=== PATIENT | male | born 1970 | race Caucasian/White ===

== ENCOUNTER → 2020-02-24 | Outpatient (CLI) | payer OTHER ==
--- NOTE | 2020-02-24 16:15 | Diagnostic Imaging Report ---
Indication: Indication: Arm pain after crush injury. COMPARISON: None available. TECHNIQUE: 2 views of the right forearm are obtained. FINDINGS: A fiberglass splint is in place. There is no traumatic malalignment in the wrist or elbow. No appreciable fracture in the radius or ulna. IMPRESSION: No fracture within the right forearm. Dictated by: Dictated on workstation # [id number]
== END ==
LOC: RAD 15:25
PROVIDERS: ATTEND Nurse Practitioner Family
DX: M79.631 Pain in right forearm (principal)
CPT/HCPCS: 73090

== ENCOUNTER 2020-06-02 13:56 | Emergency (ER) | payer SELFPAY ==
[~2020-06-02] VITALS: Ht 172 cm; Wt 96.0 kg
--- NOTE | 2020-06-02 14:12 | ED General ---
General Stated Complaint: DIZZY / FALL Source of Information: Patient Exam Limitations: No Limitations History of Present Illness Date Seen by Provider: Jun 02, 2020 Time Seen by Provider: 14:08 Initial Comments Sent to ER by private vehicle from [facility] where he presented with recurrent falls. He states that he is fallen twice today because he becomes very lightheaded upon standing. He is fallen a few times over the course of the past 3 days. Denies palpitations. Each time that he has fallen has been after standing. He states that his blood work is abnormal and he has been referred to the hematology department for further evaluation. He states they want to get a CAT scan of his abdomen to look at his spleen. He denies any abdominal pain or diarrhea. Currently he is without dizziness. He denies alcohol use. He does smoke 1 pack of cigarettes per day. He does also report a left-sided headache and blurred vision. states he has been repeating himself. Typically he does not state that he loves her but today he told her that he labs are 4 times in the course of 20 minutes. Timing/Duration: 2-3 Days Severity: Moderate Associated Systoms: Headaches Allergies and Home Medications Allergies Coded Allergies: No Allergy Information Available (Unverified , 06/02/20) Patient Home Medication List Home Medication List Reviewed: Yes Review of Systems Review of Systems Constitutional: see HPI; No chills, No fever, No malaise, No weakness EENTM: see HPI Respiratory: no symptoms reported; No cough, No short of breath Cardiovascular: see HPI; No chest pain, No edema, No palpitations, No syncope, No vascular heart diseas, No other Genitourinary: no symptoms reported Musculoskeletal: no symptoms reported Skin: no symptoms reported Psychiatric/Neurological: No Symptoms Reported, Headache Hematologic/Lymphatic: No Symptoms Reported Immunological/Allergic: no symptoms reported Physical Exam Vital Signs Vital Signs - First Documented 06/02/20 14:00 Temp 35.2 Pulse 85 Resp 20 B/P (MAP) 146/87 (106) Pulse Ox 96 Capillary Refill : Height, Weight, BMI Height: '" Weight: lbs. oz. kg; BMI Method: General Appearance: No Apparent Distress, WD/WN, Other (Alert and oriented very pleasant no distress. GCS 15. Recalls all events. There is no orthostatic hypotension. His blood pressure rises appropriately with change in position to standing though this does cause a recurrence of his dizziness.) Eyes: Bilateral Eye Normal Inspection, Bilateral Eye PERRL, Bilateral Eye EOMI HEENT: PERRL/EOMI, TMs Normal, Normal ENT Inspection Neck: Full Range of Motion, Normal Inspection Respiratory: No Accessory Muscle Use, No Respiratory Distress Cardiovascular: Regular Rate, Rhythm, Normal Peripheral Pulses Gastrointestinal: Normal Bowel Sounds, Non Tender, Soft Extremity: Normal Capillary Refill, Normal Inspection Neurologic/Psychiatric: Alert, Oriented x3 Skin: Normal Color, Warm/Dry Progress/Results/Core Measures Suspected Sepsis SIRS Temperature: Pulse: Respiratory Rate: Laboratory Tests 06/02/20 14:05: White Blood Count 8.7 Blood Pressure / Mean: Laboratory Tests 06/02/20 14:05: Creatinine 0.80, INR Comment 1.1, Platelet Count 112L, Total Bilirubin 2.2H Results/Orders Lab Results Laboratory Tests Test 06/02/20 14:05 06/02/20 15:00 Range/Units White Blood Count 8.7 4.3-11.0 10^3/uL Red Blood Count 3.97 L 4.30-5.52 10^6/uL Hemoglobin 15.1 13.3-17.7 g/dL Hematocrit 42 40-54 % Mean Corpuscular Volume 106 H 80-99 fL Mean Corpuscular Hemoglobin 38 H 25-34 pg Mean Corpuscular Hemoglobin Concent 36 32-36 g/dL Red Cell Distribution Width 15.2 H 10.0-14.5 % Platelet Count 112 L 130-400 10^3/uL Mean Platelet Volume 11.3 9.0-12.2 fL Immature Granulocyte % (Auto) 1 % Neutrophils (%) (Auto) 64 42-75 % Lymphocytes (%) (Auto) 28 12-44 % Monocytes (%) (Auto) 5 0-12 % Eosinophils (%) (Auto) 2 0-10 % Basophils (%) (Auto) 1 0-10 % Neutrophils # (Auto) 5.5 1.8-7.8 10^3/uL Lymphocytes # (Auto) 2.4 1.0-4.0 10^3/uL Monocytes # (Auto) 0.5 0.0-1.0 10^3/uL Eosinophils # (Auto) 0.1 0.0-0.3 10^3/uL Basophils # (Auto) 0.1 0.0-0.1 10^3/uL Immature Granulocyte # (Auto) 0.1 0.0-0.1 10^3/uL Erythrocyte Sedimentation Rate 2 0-15 MM/HR Prothrombin Time 14.7 12.2-14.7 SEC INR Comment 1.1 0.8-1.4 Fibrinogen 188 L 221-496 MG/DL D-Dimer 0.71 H 0.00-0.49 UG/ML Sodium Level 136 135-145 MMOL/L Potassium Level 4.6 3.6-5.0 MMOL/L Chloride Level 106 98-107 MMOL/L Carbon Dioxide Level 19 L 21-32 MMOL/L Anion Gap 11 5-14 MMOL/L Blood Urea Nitrogen 7 7-18 MG/DL Creatinine 0.80 0.60-1.30 MG/DL Estimat Glomerular Filtration Rate > 60 BUN/Creatinine Ratio 9 Glucose Level 118 H 70-105 MG/DL Calcium Level 9.0 8.5-10.1 MG/DL Corrected Calcium 8.7 8.5-10.1 MG/DL Total Bilirubin 2.2 H 0.1-1.0 MG/DL Aspartate Amino Transf (AST/SGOT) 48 H 5-34 U/L Alanine Aminotransferase (ALT/SGPT) 53 0-55 U/L Alkaline Phosphatase 121 40-136 U/L C-Reactive Protein High Sensitivity 0.16 0.00-0.50 MG/DL Total Protein 8.1 6.4-8.2 GM/DL Albumin 4.4 3.2-4.5 GM/DL Urine Color YELLOW Urine Clarity CLEAR Urine pH 8.0 5-9 Urine Specific [place] 1.010 L 1.016-1.022 Urine Protein NEGATIVE NEGATIVE Urine Glucose (UA) NEGATIVE NEGATIVE Urine Ketones NEGATIVE NEGATIVE Urine Nitrite NEGATIVE NEGATIVE Urine Bilirubin NEGATIVE NEGATIVE Urine Urobilinogen 0.2 < = 1.0 MG/DL Urine Leukocyte Esterase NEGATIVE NEGATIVE Urine RBC (Auto) NEGATIVE NEGATIVE Urine RBC NONE /HPF Urine WBC NONE /HPF Urine Squamous Epithelial Cells NONE /HPF Urine Crystals NONE /LPF Urine Bacteria NEGATIVE /HPF Urine Casts NONE /LPF Urine Mucus NEGATIVE /LPF Urine Culture Indicated NO My Orders Orders - VIDHYA ROME APRN Cbc With Automated Diff (06/02/20 14:06) Comprehensive Metabolic Panel (06/02/20 14:06) Ua Culture If Indicated (06/02/20 14:06) Chest 1 View, Ap/Pa Only (06/02/20 14:06) Ct Head Wo (06/02/20 14:06) Erythrocyte Sedimentation Rate (06/02/20 14:21) Hs C Reactive Protein (06/02/20 14:21) Ct Abdomen/Pelvis W (06/02/20 14:21) Ferritin (06/02/20 14:21) Fibrin Degradation Products (06/02/20 14:21) Iohexol Injection (Omnipaque 350 Mg/Ml 1 (06/02/20 14:30) Received Contrast (Hold Metformin- Contr (06/02/20 14:30) Sodium Chloride Flush (Catheter Flush Sy (06/02/20 14:30) Ns (Ivpb) (Sodium Chloride 0.9% Ivpb Bag (06/02/20 14:30) Fibrinogen (06/02/20 14:05) Protime With Inr (06/02/20 14:05) Meclizine Tablet (Antivert Tablet) (06/02/20 16:30) Medications Given in ED Current Medications Medications Dose Ordered Sig/Radha Route Start Time Stop Time Status Last Admin Dose Admin Iohexol 100 ml ONCE ONCE IV 06/02/20 14:30 06/02/20 14:31 DC 06/02/20 14:37 100 ML Sodium Chloride 10 ml NEEDED PRN IV 06/02/20 14:30 06/02/20 14:37 10 ML Sodium Chloride 100 ml ONCE ONCE IV 06/02/20 14:30 06/02/20 14:31 DC 06/02/20 14:37 80 ML Vital Signs/I&O 06/02/20 14:00 Temp 35.2 Pulse 85 Resp 20 B/P (MAP) 146/87 (106) Pulse Ox 96 Capillary Refill : Diagnostic Imaging Diagonstic Imaging: Xray, CT Comments NAME: RENETTA ZURITA CECILIA REC#: [id number] PT STATUS: REG ER : 1970 PHYSICIAN: VIDHYA ROME APRN ADMIT DATE: 06/02/20/ER Draft Date of Exam:06/02/20 CHEST 1 VIEW, AP/PA ONLY Clinical indication: Patient states multiple falls over last few days. Exam: Portable chest x-ray upright view. Comparisons: None. Findings: Lungs/pleura: Suspected mild bibasilar atelectasis. Otherwise, lungs are clear. There is no pneumothorax. There is no pleural effusion. Mediastinum: Unremarkable. Pulmonary vasculature: Unremarkable. Heart: Unremarkable. Bones/extrathoracic soft tissue: Unremarkable. Impression: Suspected mild bibasilar atelectasis. Otherwise, there is no radiographic evidence of acute cardiopulmonary process. Dictated on workstation # [id number] Dict: 06/02/20 1438 Trans: 06/02/20 1444 [facility] [id number] Interpreted by: PAULO PINEDA MD Electronically signed by: NAME: RENETTA ZURITA [facility] REC#: [id number] PT STATUS: REG ER : 1970 PHYSICIAN: VIDHYA ROME APRN ADMIT DATE: 06/02/20/ER Signed Date of Exam:06/02/20 CT HEAD WO Clinical indication: Patient with syncope, 2 falls today. Patient has dizziness x2-3 days. Exam: Axial CT scan of the brain without IV contrast with coronal and sagittal reformatted images. Auto Exposure Controls were utilized during the CT exam to meet ALARA standards for radiation dose reduction. Comparison: None. Findings: There is no evidence of acute cerebral infarct, intracranial hemorrhage, or gross mass effect. There is brain parenchymal volume loss which is advanced for patient's age with increased extra-axial CSF space seen near the vertex. There is normal duckworth-white matter distinction. There is no significant midline shift or herniation. The pituitary gland, sella, and suprasellar regions are unremarkable as visualized. There is no evidence of hydrocephalus. The basal cisterns are unremarkable. The skull, extracranial soft tissue, and orbits are unremarkable. There is a moderate-sized mucus retention cyst in the left maxillary sinus. Temporal bones show no significant abnormality. Impression: 1: There is no evidence of acute intracranial process. 2: There is nonspecific diffuse brain parenchymal volume loss which is advanced for patient's age with increased extra-axial CSF space. Otherwise, the brain parenchyma is unremarkable. 3: Moderate sized mucous retention cyst in left maxillary sinus. Dictated by: Dictated on workstation # [id number] Dict: 06/02/20 1441 Trans: 06/02/20 1508 [facility] [id number] Interpreted by: PAULO PINEDA MD Electronically signed by: PAULO PINEDA MD 06/02/20 1508 NAME: RENETTA ZURITA REC#: [id number] PT STATUS: REG ER : 1970 PHYSICIAN: VIDHYA ROME APRN ADMIT DATE: 06/02/20/ER Draft Date of Exam:06/02/20 CT ABDOMEN/PELVIS W CLINICAL INDICATION: Patient with thrombocytopenia. Patient complains of abdominal pain and multiple recent falls. EXAM: Axial CT scan of the abdomen and pelvis performed with 100 mL of Omnipaque 300 IV contrast. Sagittal and coronal reformatted images were created. Auto Exposure Controls were utilized during the CT exam to meet ALARA standards for radiation dose reduction. COMPARISON: None. FINDINGS: Visualized lung bases are clear. There are degenerative spurs involving the visualized lower thoracic spine and lumbar spine. There is lower lumbar spine facet arthropathy. There is hepatosplenomegaly. The liver measures 21 cm in craniocaudal dimension. The spleen measures 21 cm in craniocaudal dimension. The liver and spleen are otherwise unremarkable with no parenchymal lesion seen. The pancreas and adrenal glands are unremarkable. Both kidneys show no mass or hydronephrosis. There are multiple gallstones seen throughout the gallbladder. The gallbladder is mild to moderately fluid distended. There is a 2.2 cm eggshell calcified area which appears to be just posterior to the cystic duct and just lateral to the 2nd portion of duodenum. There appears to be some mass effect on the duodenum. It is difficult to determine if this calcification is within the cystic duct or outside. There is no evidence of obstruction seen of the biliary tree or small bowel. There is no intestinal obstruction seen. The remainder of the stomach, small bowel and colon are unremarkable. There are a few diverticula involving the sigmoid colon and descending colon. Colon is otherwise unremarkable. The appendix is unremarkable. There is no intra-abdominal free air or free fluid. The bladder is fluid distended but otherwise unremarkable. There is no intra-abdominal or pelvic lymphadenopathy. There is a small fat-containing umbilical hernia noted. Otherwise, the extra-abdominal and extra-pelvis soft tissue structures show no significant abnormality. IMPRESSION: 1: There is a 2.2 cm eggshell calcification which appears to be just posterior to the cystic duct and superior and lateral to the 1st portion of duodenum. It is difficult to determine if this calcification is within the cystic duct or outside. There is no definite evidence of obstruction seen. MRCP may help better evaluate to determine the location and relation of this calcification in the cystic duct. Comparison to prior CT imaging of the abdomen and pelvis would also help evaluate for chronicity. 2: There is cholelithiasis with no CT evidence of cholecystitis. 3: There is hepatosplenomegaly. Clinical correlation for etiology is suggested. Dictated on workstation # [id number] Dict: 06/02/20 1444 Trans: 06/02/20 1514 [facility] [id number] Interpreted by: PAULO PINEDA MD Electronically signed by: Departure Communication (Admissions) He did have some outpatient labs on 05/23/2020 and a peripheral smear showing negative hepatitis and HIV panel. His hemoglobin was 15.8 hematocrit 44, plat elets low at 110. His total bili was 2.3 and direct bili was 0.8. He had a low haptoglobin at less than 8. His peripheral smear showed macrocytic anemia with low-grade hemolysis. Thrombocytopenia with an elevated IPF consistent with low or reduced platelet survival. He is scheduled to see Dr. Cobb from hematology for further evaluation. 1621-did discuss with Dr. Cobb, no additional recommendations at this time he follows up with the patient this week or next in clinic. Impression Primary Impression: Thrombocytopenia Additional Impressions: Splenomegaly Orthostatic dizziness Disposition: 01 HOME, SELF-CARE Condition: Stable Departure-Patient Inst. Decision time for Depature: 15:35 Referrals: RYLAN GLASGOW MD (PCP/Family) Primary Care Physician Patient Instructions: Dizziness, Adult ED Add. Discharge Instructions: It is very important that you call Dr. GLASGOW tomorrow morning for further evaluation and guidance on the plan of care. Your spleen was very enlarged on CT scan. No roughhousing or any physical activity that could result in you being struck in your abdomen. No bicycle riding or dirt bikes. Be very careful not to be hit in your abdomen with anything. Scripts Meclizine HCl (Meclizine HCl) 25 Mg Tablet 25 MG PO TID PRN for DIZZINESS, #10 TAB Prov: VIDHYA ROME APRN 06/02/20 Copy Copies To 1: RYLAN GLASGOW MD; GRICELDA DUEÑAS PETER J APRN Jun 02, 2020 14:12
[2020-06-02 14:20] LABS: BASOPHILS # (AUTO) 0.1 10^3/uL (0.0-0.1); BASOPHILS % (AUTO) 1 % (0-10); MEAN CORPUSCULAR HGB CONC 36 g/dL (32-36); MEAN PLATELET VOLUME 11.3 fL (9.0-12.2); MONOCYTES % (AUTO) 5 % (0-12)
[2020-06-02 14:22] LABS: EOSINOPHILS # (AUTO) 0.1 10^3/uL (0.0-0.3); EOSINOPHILS % (AUTO) 2 % (0-10); HEMATOCRIT 42 % (40-54); HEMOGLOBIN 15.1 g/dL (13.3-17.7); LYMPHOCYTES # (AUTO) 2.4 10^3/uL (1.0-4.0); LYMPHOCYTES % (AUTO) 28 % (12-44); MEAN CORPUSCULAR HEMOGLOBIN 38 pg (25-34); MEAN CORPUSCULAR VOLUME 106 fL (80-99); MONOCYTES # (AUTO) 0.5 10^3/uL (0.0-1.0); NEUTROPHILS # (AUTO) 5.5 10^3/uL (1.8-7.8); NEUTROPHILS % (AUTO) 64 % (42-75); PLATELET COUNT 112 10^3/uL (130-400); WHITE BLOOD COUNT 8.7 10^3/uL (4.3-11.0)
[2020-06-02] MEDS ORDERED: NS 100 ML (IVPB) BAG IV ONE (14:30)
[2020-06-02] MEDS ORDERED: CATHETER FLUSH 10 ML SYR IV PRN (14:30)
[2020-06-02] MEDS ORDERED: IOHEXOL 350 MG/ML 100 ML (OMNIPAQUE 350) VIAL IV ONE (14:30)
[2020-06-02] MEDS ORDERED: HOLD METFORMIN - RECEIVED CONTRAST 20 ML VIAL IV SCH (14:30)
[2020-06-02 14:35] LABS: ALBUMIN 4.4 GM/DL (3.2-4.5); CHLORIDE 106 MMOL/L (98-107); POTASSIUM 4.6 MMOL/L (3.6-5.0); SODIUM 136 MMOL/L (135-145)
[2020-06-02 14:38] LABS: GLUCOSE 118 MG/DL (70-105); TOTAL PROTEIN 8.1 GM/DL (6.4-8.2)
[2020-06-02 14:39] LABS: BILIRUBIN,TOTAL 2.2 MG/DL (0.1-1.0); CARBON DIOXIDE 19 MMOL/L (21-32)
[2020-06-02 14:41] LABS: ALKALINE PHOSPHATASE 121 U/L (40-136); GFR ESTIMATED > 60
[2020-06-02 14:42] LABS: BUN/CREATININE RATIO 9
[2020-06-02 14:44] LABS: ALANINE AMINOTRANSFERASE 53 U/L (0-55)
--- NOTE | 2020-06-02 14:44 | Diagnostic Imaging Report ---
Clinical indication: Patient states multiple falls over last few days. Exam: Portable chest x-ray upright view. Comparisons: None. Findings: Lungs/pleura: Suspected mild bibasilar atelectasis. Otherwise, lungs are clear. There is no pneumothorax. There is no pleural effusion. Mediastinum: Unremarkable. Pulmonary vasculature: Unremarkable. Heart: Unremarkable. Bones/extrathoracic soft tissue: Unremarkable. Impression: Suspected mild bibasilar atelectasis. Otherwise, there is no radiographic evidence of acute cardiopulmonary process. Dictated by: Dictated on workstation # [id number]
--- NOTE | 2020-06-02 14:47 | Diagnostic Imaging Report ---
Clinical indication: Patient with syncope, 2 falls today. Patient has dizziness x2-3 days. Exam: Axial CT scan of the brain without IV contrast with coronal and sagittal reformatted images. Auto Exposure Controls were utilized during the CT exam to meet ALARA standards for radiation dose reduction. Comparison: None. Findings: There is no evidence of acute cerebral infarct, intracranial hemorrhage, or gross mass effect. There is brain parenchymal volume loss which is advanced for patient's age with increased extra-axial CSF space seen near the vertex. There is normal duckworth-white matter distinction. There is no significant midline shift or herniation. The pituitary gland, sella, and suprasellar regions are unremarkable as visualized. There is no evidence of hydrocephalus. The basal cisterns are unremarkable. The skull, extracranial soft tissue, and orbits are unremarkable. There is a moderate-sized mucus retention cyst in the left maxillary sinus. Temporal bones show no significant abnormality. Impression: 1: There is no evidence of acute intracranial process. 2: There is nonspecific diffuse brain parenchymal volume loss which is advanced for patient's age with increased extra-axial CSF space. Otherwise, the brain parenchyma is unremarkable. 3: Moderate sized mucous retention cyst in left maxillary sinus. Dictated by: Dictated on workstation # [id number]
[2020-06-02 14:58] LABS: FIBRIN DEGRADATION PRODUCTS 0.71 UG/ML (0.00-0.49)
[2020-06-02 15:05] LABS: INR 1.1 (0.8-1.4); PROTHROMBIN TIME PATIENT 14.7 SEC (12.2-14.7)
--- NOTE | 2020-06-02 15:14 | Diagnostic Imaging Report ---
CLINICAL INDICATION: Patient with thrombocytopenia. Patient complains of abdominal pain and multiple recent falls. EXAM: Axial CT scan of the abdomen and pelvis performed with 100 mL of Omnipaque 300 IV contrast. Sagittal and coronal reformatted images were created. Auto Exposure Controls were utilized during the CT exam to meet ALARA standards for radiation dose reduction. COMPARISON: None. FINDINGS: Visualized lung bases are clear. There are degenerative spurs involving the visualized lower thoracic spine and lumbar spine. There is lower lumbar spine facet arthropathy. There is hepatosplenomegaly. The liver measures 21 cm in craniocaudal dimension. The spleen measures 21 cm in craniocaudal dimension. The liver and spleen are otherwise unremarkable with no parenchymal lesion seen. The pancreas and adrenal glands are unremarkable. Both kidneys show no mass or hydronephrosis. There are multiple gallstones seen throughout the gallbladder. The gallbladder is mild to moderately fluid distended. There is a 2.2 cm eggshell calcified area which appears to be just posterior to the cystic duct and just lateral to the 2nd portion of duodenum. There appears to be some mass effect on the duodenum. It is difficult to determine if this calcification is within the cystic duct or outside. There is no evidence of obstruction seen of the biliary tree or small bowel. There is no intestinal obstruction seen. The remainder of the stomach, small bowel and colon are unremarkable. There are a few diverticula involving the sigmoid colon and descending colon. Colon is otherwise unremarkable. The appendix is unremarkable. There is no intra-abdominal free air or free fluid. The bladder is fluid distended but otherwise unremarkable. There is no intra-abdominal or pelvic lymphadenopathy. There is a small fat-containing umbilical hernia noted. Otherwise, the extra-abdominal and extra-pelvis soft tissue structures show no significant abnormality. IMPRESSION: 1: There is a 2.2 cm eggshell calcification which appears to be just posterior to the cystic duct and superior and lateral to the 1st portion of duodenum. It is difficult to determine if this calcification is within the cystic duct or outside. There is no definite evidence of obstruction seen. MRCP may help better evaluate to determine the location and relation of this calcification in the cystic duct. Comparison to prior CT imaging of the abdomen and pelvis would also help evaluate for chronicity. 2: There is cholelithiasis with no CT evidence of cholecystitis. 3: There is hepatosplenomegaly. Clinical correlation for etiology is suggested. Dictated by: Dictated on workstation # [id number]
[2020-06-02 15:29] LABS: BILIRUBIN,URINE NEGATIVE (NEGATIVE); CLARITY,URINE CLEAR; COLOR,URINE YELLOW; GLUCOSE, URINE (UA) NEGATIVE (NEGATIVE); KETONES,URINE NEGATIVE (NEGATIVE); LEUKOCYTE ESTERASE ,URINE NEGATIVE (NEGATIVE); NITRITE,URINE NEGATIVE (NEGATIVE); PROTEIN,URINE NEGATIVE (NEGATIVE)
[2020-06-02 15:56] LABS: BACTERIA,URINE NEGATIVE /HPF
[2020-06-02] MEDS ORDERED: MECL-149 PO (16:28)
[2020-06-02] MEDS ORDERED: MECLIZINE 25 MG (ANTIVERT) TAB PO ONE (16:30)
[2020-06-02 16:38] VITALS: BP 136/75
== END 2020-06-02 16:39 | disposition home or self-care (01) ==
LOC: EDUNIT# 13:56 → ER 13:59
DX: D69.6 Thrombocytopenia, unspecified (principal); R16.1 Splenomegaly, not elsewhere classified; R42 Dizziness and giddiness; I10 Essential (primary) hypertension
CPT/HCPCS: 36415; 70450; 71045; 74177; 80053; 81000; 82728; 85025; 85379; 85384; 85610; 85652; 86141

== ENCOUNTER 2020-07-10 09:56 | Outpatient (RCR) | payer SELFPAY ==
[2020-05-23 14:14] LABS: ABSOLUTE RETIC # 355 10e9/uL (24-90); BASOPHILS # (AUTO) 0.1 10^3/uL (0.0-0.1); BASOPHILS % (AUTO) 1 % (0-10); EOSINOPHILS # (AUTO) 0.2 10^3/uL (0.0-0.3); EOSINOPHILS % (AUTO) 2 % (0-10); HEMATOCRIT 44 % (40-54); HEMOGLOBIN 15.8 g/dL (13.3-17.7); LYMPHOCYTES # (AUTO) 2.6 10^3/uL (1.0-4.0); LYMPHOCYTES % (AUTO) 25 % (12-44); MEAN CORPUSCULAR HEMOGLOBIN 38 pg (25-34); MEAN CORPUSCULAR HGB CONC 36 g/dL (32-36); MEAN CORPUSCULAR VOLUME 106 fL (80-99); MEAN PLATELET VOLUME 11.7 fL (9.0-12.2); MONOCYTES # (AUTO) 0.5 10^3/uL (0.0-1.0); MONOCYTES % (AUTO) 5 % (0-12); NEUTROPHILS # (AUTO) 6.9 10^3/uL (1.8-7.8); NEUTROPHILS % (AUTO) 67 % (42-75); PLATELET COUNT 110 10^3/uL (130-400); RETICULOCYTE % 8.49 % (0.50-2.40); WHITE BLOOD COUNT 10.3 10^3/uL (4.3-11.0)
[2020-05-23 14:37] LABS: ALANINE AMINOTRANSFERASE 43 U/L (0-55); ALBUMIN 4.6 GM/DL (3.2-4.5); ALKALINE PHOSPHATASE 109 U/L (40-136); BILIRUBIN,TOTAL 2.3 MG/DL (0.1-1.0); BUN/CREATININE RATIO 12; CALCIUM 9.5 MG/DL (8.5-10.1); CARBON DIOXIDE 22 MMOL/L (21-32); CHLORIDE 105 MMOL/L (98-107); CREATININE SERUM 0.76 MG/DL (0.60-1.30); GFR ESTIMATED > 60; GLUCOSE 111 MG/DL (70-105); POTASSIUM 4.1 MMOL/L (3.6-5.0); SODIUM 137 MMOL/L (135-145); TOTAL PROTEIN 7.9 GM/DL (6.4-8.2)
[2020-05-23 16:51] LABS: EOSINOPHILS % (MANUAL) 3 %; LYMPHOCYTES % (MANUAL) 31 %; MONOCYTES % (MANUAL) 4 %; NEUTROPHILS % (MANUAL) 62 %; POLYCHROMASIA SLIGHT
[2020-05-23 22:36] LABS: HEPATITIS C ANTIBODY C Non-Reactive (Non-Reactive)
[~2020-07-10 09:56] MED LIST: MECL-149 PO
[2020-07-10 10:07] LABS: MONOCYTES % (AUTO) 6 % (0-12); PLATELET COUNT 133 10^3/uL (130-400)
[2020-07-10 10:10] LABS: ABSOLUTE RETIC # 253 10e9/uL (24-90); BASOPHILS # (AUTO) 0.1 10^3/uL (0.0-0.1); BASOPHILS % (AUTO) 1 % (0-10); EOSINOPHILS # (AUTO) 0.2 10^3/uL (0.0-0.3); EOSINOPHILS % (AUTO) 2 % (0-10); HEMATOCRIT 40 % (40-54); HEMOGLOBIN 13.8 g/dL (13.3-17.7); LYMPHOCYTES # (AUTO) 2.1 10^3/uL (1.0-4.0); LYMPHOCYTES % (AUTO) 26 % (12-44); MEAN CORPUSCULAR HEMOGLOBIN 38 pg (25-34); MEAN CORPUSCULAR HGB CONC 35 g/dL (32-36); MEAN CORPUSCULAR VOLUME 108 fL (80-99); MEAN PLATELET VOLUME 11.4 fL (9.0-12.2); MONOCYTES # (AUTO) 0.5 10^3/uL (0.0-1.0); NEUTROPHILS # (AUTO) 5.4 10^3/uL (1.8-7.8); NEUTROPHILS % (AUTO) 65 % (42-75); WHITE BLOOD COUNT 8.3 10^3/uL (4.3-11.0)
[2020-07-10 10:26] LABS: ALANINE AMINOTRANSFERASE 37 U/L (0-55); ALKALINE PHOSPHATASE 122 U/L (40-136); BILIRUBIN,TOTAL 1.8 MG/DL (0.1-1.0); BUN/CREATININE RATIO 8; CALCIUM 8.7 MG/DL (8.5-10.1); CARBON DIOXIDE 24 MMOL/L (21-32); CHLORIDE 106 MMOL/L (98-107); CREATININE SERUM 0.75 MG/DL (0.60-1.30); GFR ESTIMATED > 60; GLUCOSE 167 MG/DL (70-105); POTASSIUM 3.9 MMOL/L (3.6-5.0); SODIUM 138 MMOL/L (135-145)
[2020-07-28] MEDS ORDERED: TRAM-42 PO (00:42)
[2020-07-28] MEDS ORDERED: ONDA4TAB11 PO (00:42)
[2020-07-28] MEDS ORDERED: PANT40TA2 PO (00:42)
[2020-08-07] MEDS ORDERED: METF-397 PO (10:07)
[2020-08-07] MEDS ORDERED: SERT100T PO ×2 (10:07)
[2020-08-08] MEDS ORDERED: HYDR-3817 PO (12:32)
[2020-08-19] MEDS ORDERED: HYDR-3817 PO ×2 (09:44)
[2020-08-19] MEDS ORDERED: IBUP-2473 PO ×2 (09:44)
[2020-08-19] MEDS ORDERED: TRAM-42 PO ×2 (16:07)
[2020-08-19] MEDS ORDERED: METR500T PO ×2 (16:07)
[2020-08-19] MEDS ORDERED: CIPR-225 PO ×2 (16:07)
== END 2020-08-21 | disposition home or self-care (01) ==
LOC: ONC 09:56
PROVIDERS: ATTEND Internal Medicine Hematology & Oncology
DX: D69.6 Thrombocytopenia, unspecified (principal)
CPT/HCPCS: 80053; 80074; 82248; 83010; 83615; 85007; 85025; 85027; 85045; 85055; 86703; 86880; G0463; 82728; 99213; 99214

== ENCOUNTER 2020-07-27 22:23 | Emergency (ER) | payer MEDICAID ==
[~2020-07-27] VITALS: Ht 170.2 cm; Wt 95.3 kg
[2020-07-27 22:47] LABS: BILIRUBIN,URINE NEGATIVE (NEGATIVE); CLARITY,URINE CLEAR; COLOR,URINE YELLOW; GLUCOSE, URINE (UA) 3+ (NEGATIVE); KETONES,URINE NEGATIVE (NEGATIVE); LEUKOCYTE ESTERASE ,URINE NEGATIVE (NEGATIVE); NITRITE,URINE NEGATIVE (NEGATIVE); PH,URINE 6.5 (5-9); PROTEIN,URINE NEGATIVE (NEGATIVE)
[2020-07-27 22:53] LABS: BASOPHILS # (AUTO) 0.1 10^3/uL (0.0-0.1); BASOPHILS % (AUTO) 1 % (0-10); EOSINOPHILS # (AUTO) 0.2 10^3/uL (0.0-0.3); EOSINOPHILS % (AUTO) 2 % (0-10); LYMPHOCYTES # (AUTO) 2.8 10^3/uL (1.0-4.0); MEAN CORPUSCULAR VOLUME 106 fL (80-99)
[2020-07-27 22:53] LABS: BACTERIA,URINE NEGATIVE /HPF; SQUAMOUS EPITHELIAL CELL,UR RARE /HPF
[2020-07-27 22:54] LABS: HEMATOCRIT 43 % (40-54); HEMOGLOBIN 15.5 g/dL (13.3-17.7); LYMPHOCYTES % (AUTO) 28 % (12-44); MEAN CORPUSCULAR HEMOGLOBIN 38 pg (25-34); MEAN CORPUSCULAR HGB CONC 36 g/dL (32-36); MEAN PLATELET VOLUME 11.7 fL (9.0-12.2); MONOCYTES # (AUTO) 0.6 10^3/uL (0.0-1.0); MONOCYTES % (AUTO) 6 % (0-12); NEUTROPHILS # (AUTO) 6.2 10^3/uL (1.8-7.8); NEUTROPHILS % (AUTO) 63 % (42-75); PLATELET COUNT 100 10^3/uL (130-400); WHITE BLOOD COUNT 9.8 10^3/uL (4.3-11.0)
[2020-07-27 23:02] LABS: ALBUMIN 4.6 GM/DL (3.2-4.5)
[2020-07-27 23:03] LABS: AMYLASE 55 U/L (25-125); CHLORIDE 102 MMOL/L (98-107); SODIUM 138 MMOL/L (135-145)
[2020-07-27 23:04] LABS: CALCIUM 9.3 MG/DL (8.5-10.1)
[2020-07-27 23:05] LABS: GLUCOSE 327 MG/DL (70-105); TOTAL PROTEIN 7.7 GM/DL (6.4-8.2)
[2020-07-27 23:06] LABS: CARBON DIOXIDE 24 MMOL/L (21-32)
[2020-07-27 23:07] LABS: BILIRUBIN,TOTAL 2.2 MG/DL (0.1-1.0)
[2020-07-27 23:08] LABS: ALKALINE PHOSPHATASE 147 U/L (40-136)
[2020-07-27 23:09] LABS: CREATININE SERUM 0.92 MG/DL (0.60-1.30); GFR ESTIMATED > 60
[2020-07-27 23:10] LABS: BUN/CREATININE RATIO 8
[2020-07-27 23:12] LABS: ALANINE AMINOTRANSFERASE 46 U/L (0-55); LIPASE 34 U/L (8-78)
[2020-07-27] MEDS: NS IV 1000 ML 1,000 ML IV SCH (23:22)
[2020-07-28] MEDS: NS 100 ML (IVPB) BAG IV ONE (00:10)
[2020-07-28] MEDS: CATHETER FLUSH 10 ML SYR IV PRN (00:10)
[2020-07-28] MEDS: IOHEXOL 350 MG/ML 100 ML (OMNIPAQUE 350) VIAL IV ONE (00:10)
[2020-07-28] MEDS ORDERED: HOLD METFORMIN - RECEIVED CONTRAST 20 ML VIAL IV SCH (00:15)
[2020-07-28] MEDS ORDERED: TRAM-42 PO (00:42)
[2020-07-28] MEDS ORDERED: PANT40TA2 PO (00:42)
[2020-07-28] MEDS ORDERED: ONDA4TAB11 PO (00:42)
--- NOTE | 2020-07-28 00:42 | ED Abdominal Pain ---
General Chief Complaint: Abdominal/GI Problems Stated Complaint: R SIDE PAIN/FEVER/DIZZINESS Source of Information: Patient History of Present Illness Date Seen by Provider: July 27, 2020 Time Seen by Provider: 22:37 Initial Comments PT ARRIVES VIA POV FROM HOME C/O RUQ PAIN --BEGAN AROUND 12:30 THIS AFTERNOON WHILE SITTING NO RADIATION OF PAIN NOTHING WORSENS OR IMPROVES PAIN PT STATES PAIN IS SHARP AND DULL, RATES PAIN 8/10 NOW NO NAUSEA/VOMITING/DIARRHEA. HAD A NORMAL BM TODAY NO URINARY SYMPTOMS PT HAS BEEN EATING AND DRINKING USUAL TODAY STATES HE HAD FEVER OF 99.1 TODAY NO HISTORY OF SIMILAR HAS NOT HAD ANY PRIOR ABDOMINAL SURGERIES OR GI PROBLEMS PT RECEIVED BOTH MODERNA COVID-19 VACCINES, WITH LAST ONE DONE ON 06/23/20 NO CHRONIC MEDICAL PROBLEMS, OTHER THAN DEPRESSION ONLY MEDICATION IS ZOLOFT PCP: DR. GLASGOW AT [facility] Allergies and Home Medications Allergies Coded Allergies: No Allergy Information Available (Unverified , 06/02/20) Home Medications Meclizine HCl 25 Mg Tablet, 25 MG PO TID PRN for DIZZINESS Prescribed by: VIDHYA ROME on 06/02/20 1628 Ondansetron 4 Mg Tab.rapdis, 4 MG PO Q4H Prescribed by: SAAD MARRERO on 07/28/20 0042 Pantoprazole Sodium 40 Mg Tablet.dr, 40 MG PO DAILY Prescribed by: SAAD MARRERO on 07/28/20 0042 Tramadol HCl 50 Mg Tablet, 50 MG PO Q4H Prescribed by: SAAD MARRERO on 07/28/20 0042 Patient Home Medication List Home Medication List Reviewed: Yes Review of Systems Review of Systems Constitutional: see HPI, fever EENTM: No Symptoms Reported Respiratory: No Symptoms Reported Cardiovascular: No Symptoms Reported Gastrointestinal: See HPI, Abdominal Pain; Denies Constipated, Denies Diarrhea, Denies Nausea, Denies Poor Appetite, Denies Vomiting Genitourinary: No Symptoms Reported Musculoskeletal: no symptoms reported; No back pain Skin: no symptoms reported Psychiatric/Neurological: No Symptoms Reported Endocrine: No Symptoms Reported Hematologic/Lymphatic: No Symptoms Reported Past Aligicz-Lzpkpz-Eqjakl Hx Past Med/Social Hx: Reviewed and Corrections made Patient Social History Alcohol Use: Occasionally Uses Drug of Choice: DENIES Smoking Status: Current Everyday Smoker (1 PPD) Type Used: Cigarettes Recent Hopitalizations: No Seasonal Allergies Seasonal Allergies: No Past Medical History Surgeries: No Respiratory: No Cardiac: No Neurological: No Genitourinary: No Gastrointestinal: No Musculoskeletal: No Endocrine: No HEENT: No Cancer: No Psychosocial: Yes Depression Integumentary: No Blood Disorders: No Physical Exam Vital Signs Vital Signs - First Documented 07/27/20 22:32 Temp 36.7 Pulse 95 Resp 18 B/P (MAP) 172/92 (118) Pulse Ox 97 O2 Delivery Room Air Capillary Refill : Height/Weight/BMI Height: '" Weight: lbs. oz. kg; 32.00 BMI Method: General Appearance: WD/WN, no apparent distress, obese, other (SMILING, DOES NOT APPEAR TO BE IN ANY DISCOMFORT OR DISTRESS. WALKS UPRIGHT AND MOVES WITHOUT DIFFICULTY. ) HEENT: No scleral icterus (R), No scleral icterus (L) Respiratory: normal breath sounds, no respiratory distress, no accessory muscle use Cardiovascular: regular rate, rhythm, no murmur Gastrointestinal: normal bowel sounds, soft; No guarding, No rebound; tenderness (MODERATE RUQ TENDERNESS, MILD EPIGASTRIC TENDERNESS, MINIMAL LUQ TENDERNESS); No hernia, No mass; other (UNABLE TO DETERMINE IF ORGANOMEGALY IS PRESENT DUE TO BODY HABITUS--ABDOMEN IS LARGE AND ROTUND) Extremities: normal inspection, no pedal edema Back: no CVA tenderness Neurologic/Psychiatric: supervisor functional testing II-XII nml as tested, no motor/sensory deficits, alert, normal mood/affect, oriented x 3 Skin: normal color, warm/dry Progress/Results/Core Measures Results/Orders Lab Results Laboratory Tests Test 07/27/20 22:40 07/27/20 22:47 Range/Units Urine Color YELLOW Urine Clarity CLEAR Urine pH 6.5 5-9 Urine Specific [place] 1.010 L 1.016-1.022 Urine Protein NEGATIVE NEGATIVE Urine Glucose (UA) 3+ H NEGATIVE Urine Ketones NEGATIVE NEGATIVE Urine Nitrite NEGATIVE NEGATIVE Urine Bilirubin NEGATIVE NEGATIVE Urine Urobilinogen 1.0 < = 1.0 MG/DL Urine Leukocyte Esterase NEGATIVE NEGATIVE Urine RBC (Auto) NEGATIVE NEGATIVE Urine RBC NONE /HPF Urine WBC NONE /HPF Urine Squamous Epithelial Cells RARE /HPF Urine Crystals NONE /LPF Urine Bacteria NEGATIVE /HPF Urine Casts NONE /LPF Urine Mucus NEGATIVE /LPF Urine Culture Indicated NO White Blood Count 9.8 4.3-11.0 10^3/uL Red Blood Count 4.05 L 4.30-5.52 10^6/uL Hemoglobin 15.5 13.3-17.7 g/dL Hematocrit 43 40-54 % Mean Corpuscular Volume 106 H 80-99 fL Mean Corpuscular Hemoglobin 38 H 25-34 pg Mean Corpuscular Hemoglobin Concent 36 32-36 g/dL Red Cell Distribution Width 14.4 10.0-14.5 % Platelet Count 100 L 130-400 10^3/uL Mean Platelet Volume 11.7 9.0-12.2 fL Immature Granulocyte % (Auto) 0 % Neutrophils (%) (Auto) 63 42-75 % Lymphocytes (%) (Auto) 28 12-44 % Monocytes (%) (Auto) 6 0-12 % Eosinophils (%) (Auto) 2 0-10 % Basophils (%) (Auto) 1 0-10 % Neutrophils # (Auto) 6.2 1.8-7.8 10^3/uL Lymphocytes # (Auto) 2.8 1.0-4.0 10^3/uL Monocytes # (Auto) 0.6 0.0-1.0 10^3/uL Eosinophils # (Auto) 0.2 0.0-0.3 10^3/uL Basophils # (Auto) 0.1 0.0-0.1 10^3/uL Immature Granulocyte # (Auto) 0.0 0.0-0.1 10^3/uL Percent Immature Platelet Fraction 6.8 0.0-7.6 % Sodium Level 138 135-145 MMOL/L Potassium Level 4.0 3.6-5.0 MMOL/L Chloride Level 102 98-107 MMOL/L Carbon Dioxide Level 24 21-32 MMOL/L Anion Gap 12 5-14 MMOL/L Blood Urea Nitrogen 7 7-18 MG/DL Creatinine 0.92 0.60-1.30 MG/DL Estimat Glomerular Filtration Rate > 60 BUN/Creatinine Ratio 8 Glucose Level 327 H 70-105 MG/DL Calcium Level 9.3 8.5-10.1 MG/DL Corrected Calcium 8.5-10.1 MG/DL Total Bilirubin 2.2 H 0.1-1.0 MG/DL Aspartate Amino Transf (AST/SGOT) 25 5-34 U/L Alanine Aminotransferase (ALT/SGPT) 46 0-55 U/L Alkaline Phosphatase 147 H 40-136 U/L Total Protein 7.7 6.4-8.2 GM/DL Albumin 4.6 H 3.2-4.5 GM/DL Amylase Level 55 25-125 U/L Lipase 34 8-78 U/L Beta-Hydroxybutyrate (Chem panel) 0.05 0.00-0.27 MMOL/L My Orders Orders - SAAD MARRERO DO Ed Iv/Invasive Line Start (07/27/20 22:37) Amylase (07/27/20:37) Cbc With Automated Diff (07/27/20:37) Comprehensive Metabolic Panel (07/27/20:37) Lipase (07/27/20:37) Ua Culture If Indicated (07/27/20:37) Ct Abd/Pelv W (Appendicitis) (07/27/20 23:13) Acute Abd Series (07/27/20 23:13) Ed Iv/Invasive Line Start (07/27/20 23:15) Ns Iv 1000 Ml (Sodium Chloride 0.9%) (07/27/20 23:15) Hemoglobin A1c (07/27/20 23:18) Beta Hydroxybutyrate (07/27/20 23:18) Iohexol Injection (Omnipaque 350 Mg/Ml 1 (07/28/20 00:15) Received Contrast (Hold Metformin- Contr (07/28/20 00:15) Sodium Chloride Flush (Catheter Flush Sy (07/28/20 00:15) Ns (Ivpb) (Sodium Chloride 0.9% Ivpb Bag (07/28/20 00:15) Medications Given in ED Current Medications Medications Dose Ordered Sig/Radha Route Start Time Stop Time Status Last Admin Dose Admin Iohexol 100 ml ONCE ONCE IV 07/28/20 00:15 07/28/20 00:16 DC 07/28/20 00:10 100 ML Sodium Chloride 10 ml NEEDED PRN IV 07/28/20 00:15 07/28/20 00:55 DC 07/28/20 00:10 10 ML Sodium Chloride 100 ml ONCE ONCE IV 07/28/20 00:15 07/28/20 00:16 DC 07/28/20 00:10 80 ML Vital Signs/I&O 07/27/20 07/28/20 22:32 00:51 Temp 36.7 36.7 Pulse 95 88 Resp 18 18 B/P (MAP) 172/92 (118) 146/84 (118) Pulse Ox 97 97 O2 Delivery Room Air Progress Progress Note : Progress Note PAIN FREE AT DISMISSAL DISCUSSED THE IMPORTANCE OF FOLLOW UP WITH DR. GLASGOW FOR ELEVATED BLOOD GLUCOSE REFERRAL TO SURGEON FOR CHOLELITHIASIS Diagnostic Imaging Comments ACUTE ABDOMEN XRAYS--NO ACUTE PROCESS, PENDING RADIOLOGIST REVIEW CT ABDOMEN/PELVIS--CHOLELITHIASIS WITHOUT ACUTE CHOLECYSTITIS. MODERATE SPLENOMEGALY. 1.5 CM INDETERMINATE HYPERDENSITY IN RIGHT LOBE OF LIVER. OTHER NON-ACUTE FINDINGS. PER [facility] VIA FAX AT 0024 Reviewed: Reviewed by Me Departure Impression Primary Impression: Cholelithiasis Additional Impressions: Hyperglycemia Splenomegaly Thrombocytopenia Disposition: 01 HOME, SELF-CARE Condition: Improved Departure-Patient Inst. Decision time for Depature: 00:25 Referrals: RYLAN GLASGOW MD (PCP/Family) Primary Care Physician CALLI GODINEZ MD Patient Instructions: Gallstones (DC), The ABCs of Diabetes, Hyperglycemia, Adult (DC) Add. Discharge Instructions: CLEAR LIQUIDS FOR 24 HOURS--WATER, BROTH, JELLO, GATORADE IF YOU ARE FEELING BETTER AFTER 24 HOURS, YOU MAY ADD BRATS DIET TO CLEAR LIQUIDS--BANANAS, RICE, APPLESAUCE, TOAST, SALTINES FOLLOW UP WITH DR. GODINEZ, SURGEON, NEXT WEEK FOR FURTHER EVALUATION OF GALLSTONES FOLLOW UP WITH DR. GLASGOW/[facility] [place] NEXT WEEK FOR FURTHER EVALUATION OF ELEVATED BLOOD GLUCOSE RETURN TO ER IF SYMPTOMS WORSEN All discharge instructions reviewed with patient and/or family. Voiced understanding. Scripts Tramadol HCl (Ultram) 50 Mg Tablet 50 MG PO Q4H for Pain, #20 TAB Prov: ELIDA,SAAD K DO 07/28/20 Ondansetron (Ondansetron Odt) 4 Mg Tab.rapdis 4 MG PO Q4H for Nausea/Vomiting, #10 TAB Prov: ELIDA,SAAD K DO 07/28/20 Pantoprazole Sodium (Protonix) 40 Mg Tablet.dr 40 MG PO DAILY, #15 TAB Prov: ELIDA,SAAD K DO 07/28/20 ELIDA,SAAD K DO July 28, 2020 00:42
[2020-07-28 00:51] VITALS: BP 146/84
--- NOTE | 2020-07-28 08:10 | Diagnostic Imaging Report ---
PROCEDURE: CT abdomen and pelvis with contrast, rule out appendicitis. TECHNIQUE: Multiple contiguous axial images were obtained through the abdomen and pelvis after the administration of intravenous contrast. All CT scans use one or more of the following dose optimizing techniques: automated exposure control, MA and/or KvP adjustment based on patient size and exam type or iterative reconstruction. INDICATION: Right lower quadrant abdominal pain. COMPARISON: CT abdomen and pelvis with IV contrast 06/02/2020. FINDINGS: Multiple large gallstones. No apparent gallbladder wall thickening or pericholecystic fluid. The lung bases are clear. Stable low-attenuation in the inferior margin of the liver measuring 1.9 cm may represent a benign hemangioma. The spleen remains enlarged measuring up to 21.2 cm. The pancreas, adrenals, collecting systems and bladder are unremarkable. Subcentimeter low-attenuation regions in both kidneys may represent benign cysts. Nonobstructing calyceal tip 0.2 cm renal stone in the right kidney. Normal appendix. No free intraperitoneal air or fluid. No lymphadenopathy. No evidence of bowel obstruction or inflammation. No acute osseous findings. IMPRESSION: 1. Stable cholelithiasis without secondary findings of cholecystitis. This could be further investigated with ultrasound if clinically warranted. 2. Additional chronic and incidental findings as above. No significant change from preliminary interpretation. Dictated by: Dictated on workstation # [id number]
--- NOTE | 2020-07-28 08:17 | Diagnostic Imaging Report ---
HISTORY: Abdominal pain COMPARISON: CT from 06/02/2020 TECHNIQUE: Frontal view chest. Supine and upright frontal views of the abdomen FINDINGS: Lung volumes are mildly low. There is minimal opacity at the lung bases, most likely atelectasis, stable since 06/02/2020. No new consolidation is seen. There is no pleural effusion or pneumothorax. The cardiac silhouette is normal in size. IMPRESSION: 1. Mildly low lung volumes with bibasilar atelectasis. No new consolidation is seen. Dictated by: Dictated on workstation # [id number]
== END 2020-07-28 00:51 | disposition home or self-care (01) ==
LOC: EDUNIT# 22:23 → ER 22:24
DX: K80.20 Calculus of gallbladder without cholecystitis without obstruction (principal); R16.1 Splenomegaly, not elsewhere classified; D69.6 Thrombocytopenia, unspecified; R73.9 Hyperglycemia, unspecified; E66.9 Obesity, unspecified; F17.210 Nicotine dependence, cigarettes, uncomplicated; Z68.32 Body mass index [BMI] 32.0-32.9, adult
CPT/HCPCS: 36415; 74022; 74177; 80053; 81000; 82010; 82150; 83036; 83690; 85025

== ENCOUNTER 2020-08-07 09:34 | Outpatient (CLI) | payer MEDICAID, OTHER ==
[~2020-08-07] VITALS: Ht 170.2 cm; Wt 95.9 kg
[~2020-08-07 09:34] MED LIST changes: +ONDA4TAB11 PO; +PANT40TA2 PO; +TRAM-42 PO
[2020-08-07] MEDS ORDERED: SERT100T PO (10:07)
[2020-08-07] MEDS ORDERED: METF-397 PO (10:07)
[2020-08-08] MEDS ORDERED: HYDR-3817 PO (12:32)
== END 2020-08-07 10:32 | disposition home or self-care (01) ==
LOC: PREOP 09:34
PROVIDERS: ATTEND Surgery
DX: Z01.818 Encounter for other preprocedural examination (principal)

== ENCOUNTER 2020-08-08 11:43 | Day surgery (SDC) | payer MEDICAID, OTHER ==
[2020-08-08] VITALS (10 sets, daily range): BP systolic 125–152; BP diastolic 66–87
[~2020-08-08] VITALS: Ht 170 cm; Wt 95.9 kg
[~2020-08-08 11:43] MED LIST changes: +METF-397 PO; +SERT100T PO
[2020-08-08] MEDS: LACTATED RINGERS 1,000 ML IV PRN ×2 (12:25→16:17)
--- NOTE | 2020-08-08 12:29 | Progress Note-Pre Operative ---
Pre-Operative Progress Note H&P Reviewed The H&P was reviewed, patient examined and no changes noted. Date Seen by Provider: Aug 08, 2020 Time Seen by Provider: 12:00 Date H&P Reviewed: Aug 08, 2020 Time H&P Reviewed: 12:00 Pre-Operative Diagnosis: sx chronic calculous cholecystitis CALLI GODINEZ MD Aug 08, 2020 12:29
[2020-08-08] MEDS ORDERED: ACETAMINOPHEN 325 MG TABLET PO PRN (12:30)
[2020-08-08] MEDS ORDERED: ceFAZolin 2 GM IV Premixed 50 ML IV ONE (12:30)
[2020-08-08] MEDS ORDERED: oxyCODONE/APAP 5/325MG (PERCOCET 5) TABLET PO PRN (12:30)
[2020-08-08] MEDS ORDERED: ONDANSETRON 4 MG/2 ML (SDV) Z0FRAN IVP PRN ×2 (12:30→17:30)
[2020-08-08] MEDS ORDERED: morphine INJ 10 MG/ML 1ML (SYR OR VIAL) IVP PRN ×2 (12:30)
[2020-08-08 12:32] LABS: BASOPHILS # (AUTO) 0.1 10^3/uL (0.0-0.1); BASOPHILS % (AUTO) 1 % (0-10); EOSINOPHILS # (AUTO) 0.2 10^3/uL (0.0-0.3); EOSINOPHILS % (AUTO) 2 % (0-10); HEMATOCRIT 45 % (40-54); HEMOGLOBIN 15.6 g/dL (13.3-17.7); LYMPHOCYTES % (AUTO) 19 % (12-44); MEAN CORPUSCULAR HEMOGLOBIN 38 pg (25-34); MEAN CORPUSCULAR HGB CONC 35 g/dL (32-36); MEAN CORPUSCULAR VOLUME 111 fL (80-99); MEAN PLATELET VOLUME 12.5 fL (9.0-12.2); MONOCYTES # (AUTO) 0.6 10^3/uL (0.0-1.0); MONOCYTES % (AUTO) 6 % (0-12); NEUTROPHILS # (AUTO) 7.2 10^3/uL (1.8-7.8); NEUTROPHILS % (AUTO) 71 % (42-75); PLATELET COUNT 113 10^3/uL (130-400); WHITE BLOOD COUNT 10.1 10^3/uL (4.3-11.0)
[2020-08-08] MEDS ORDERED: HYDR-3817 PO (12:32)
--- NOTE | 2020-08-08 12:32 | Discharge Inst-Surgical ---
D/C Lap Instructions-HERBERT New, Converted, or Re-Newed RX: RX on Chart Follow Up Appt in 2 weeks Activity as tolerated No driving for 24 hours No driving while on pain medications Incentive Spirometry use every 2 hours while awake Regular Diet Symptoms to Report: Fever over 101 degree F, Nausea/Vomiting Infection Signs and Symptoms to report: Increased redness, Foul odor of wound, Increased drainage Bathing instructions: May shower Operative Area Clean/Dry; Keep incision clean/dry If any problems/questions: Contact your physician or go to Emergency Room CALLI GODINEZ MD Aug 08, 2020 12:32
[2020-08-08] MEDS ORDERED: LIDOCAINE PF 2% 5 ML (XYLOCAINE) VIAL ONE (13:43)
[2020-08-08] MEDS ORDERED: fentaNYL INJ 100 MCG/2 ML AMP ONE ×2 (13:43→14:59)
[2020-08-08] MEDS ORDERED: ROCURONIUM 10 MG/ML 5 ML SYRINGE IV ONE (13:43)
[2020-08-08] MEDS ORDERED: proPOfol 200 MG/20 ML (DIPRIVAN) VIAL IV ONE ×2 (13:43→16:16)
[2020-08-08] MEDS ORDERED: ONDANSETRON 4 MG/2 ML (SDV) Z0FRAN ONE (13:43)
[2020-08-08] MEDS ORDERED: MIDAZOLAM 2 MG/2 ML (VERSED) VIAL ONE (13:43)
[2020-08-08] MEDS ORDERED: LIDOCAINE/EPI 1%-1:200,000 (XYLOCAINE) 30 ML VIAL ONE (13:49)
[2020-08-08] MEDS ORDERED: morphine INJ 10 MG/ML 1ML (SYR OR VIAL) ONE (15:35)
[2020-08-08] MEDS ORDERED: NEOSTIGMINE 3 MG/3 ML VIAL ONE (16:16)
[2020-08-08] MEDS ORDERED: GLYCOPYRROLATE 0.2 MG/ML (ROBINUL) 2 ML VIAL ONE (16:16)
[2020-08-08] MEDS ORDERED: SEVOFLURANE (ULTANE) 15 ML INHAL SOLN ONE (16:16)
--- NOTE | 2020-08-08 16:32 | Progress Note-Post Operative ---
Post-Operative Progess Note Surgeon (s)/People Manager (s) Surgeon CALLI GODINEZ MD People Manager: adriana carlson CONTRACT CLERK [employer] Pre-Operative Diagnosis sx chronic calculous cholecystitis Post-Operative Diagnosis same Procedure & Operative Findings Date of Procedure 08/08/20 Procedure Performed/Findings laparoscopic cholecystectomy and primary umbililcal hernia repair. Anesthesia Type get Estimated Blood Loss Estimated blood loss (mL): minimal Specimens/Packing Specimens Removed gallbladder CALLI GODINEZ MD Aug 08, 2020 16:32
[2020-08-08] MEDS ORDERED: RT-ALBUTEROL SULF 2.5 MG/3 ML PRE-MIX VIAL ONE (16:40)
[2020-08-08] MEDS ORDERED: NALOXONE 0.4 MG/ML 1 ML (NARCAN) VIAL ONE (16:48)
[2020-08-08] MEDS ORDERED: KETOROLAC 30 MG/ML VIAL ONE (17:15)
--- NOTE | 2020-08-08 17:21 | Anesthesia-General Post-Op ---
General Patient Condition Mental Status/LOC: Same as Preop Cardiovascular: Satisfactory Nausea/Vomiting: Absent Respiratory: Satisfactory Pain: Controlled Complications: Absent Post Op Complications Complications None Follow Up Care/Instructions Patient Instructions None needed. Anesthesia/Patient Condition Patient Condition Patient is doing well, no complaints, stable vital signs, no apparent adverse anesthesia problems. No complications reported per nursing. SaO2 87-89% in pacu on arrival. Albuterol treatment given without much improvement. Narcan 0.2 IV given x2 doses. SaO2 increased gradually to 92% on 10L O2. Patient to be taken to [address] [place] [id number] for 23 hour observation due to Narcan policy. Dr. Bradshaw is aware. TAY ALEX CRNA Aug 08, 2020 17:21
[2020-08-08] MEDS ORDERED: RT-ALBUTEROL SULF 2.5 MG/3 ML PRE-MIX VIAL INH ONE (17:30)
[2020-08-08] MEDS ORDERED: NALOXONE 0.4 MG/ML 1 ML (NARCAN) VIAL IV ONE (17:30)
--- NOTE | 2020-08-08 19:42 | OPERATIVE REPORT ---
DATE OF SERVICE: 08/08/2020 ATTENDING PRIMARY CARE PHYSICIAN: Dr. Anders Stevenson. PREOPERATIVE DIAGNOSIS: Chronic calculous cholecystitis. POSTOPERATIVE DIAGNOSES: Chronic calculous cholecystitis and umbilical hernia. PROCEDURES PERFORMED: Laparoscopic cholecystectomy and primary umbilical hernia repair. SURGEON: Calli Godinez MD. BUSINESS LINE MANAGER: Renaldo Cleary APRN. ANESTHESIA: General endotracheal. ESTIMATED BLOOD LOSS: Minimal. FINDINGS: Liver steatosis with gallbladder wall thickening and distended gallbladder, multiple large gallstones. DISPOSITION: The patient tolerated the procedure well. INDICATIONS FOR PROCEDURE: The patient is a 50-year-old male, who has had a several month history of pain in the right upper abdominal quadrant with radiation towards the back. He also reports nausea after eating meals; however, no vomiting. He states that the pain was severe that he did present to the Emergency Department, where a CT scan was performed, which did show multiple gallstones as well as gallbladder wall thickening. DESCRIPTION OF PROCEDURE: The patient was brought to the operating room and laid supine on the table. After adequate IV pain and sedative medications and general endotracheal intubation, the abdomen was prepped and draped in a standard surgical fashion. A 0.5% Marcaine with epinephrine was used to anesthetize the overlying skin in the left upper abdominal quadrant and a transverse skin incision was made using a 15 blade. A 0 silk suture was applied to the medial aspect of the incision for retraction and a Veress needle inserted with a low opening pressure of 0 mmHg and the abdomen was then insufflated to 15 mmHg pressure. The Veress needle was removed and a 5 mm XL trocar was placed followed by a 5 mm 45-degree angle laparoscope visualizing the peritoneal cavity. A four-quadrant abdominal x-ray was performed. There was an umbilical hernia identified. There was nothing within the hernia sac. Under direct visualization, we then proceeded to place a 10 mm trocar through the hernia defect under direct visualization. We then proceeded to place a right upper abdominal quadrant 5 mm port in a similar manner. The gallbladder was retracted anteriorly and superiorly and the patient was placed in a steep reverse Trendelenburg as well as plane right side up and left side down. A second right upper abdominal quadrant 5 mm port was placed to retract the infundibulum laterally. The hepatoduodenal ligament was then opened using blunt dissection as well as electrocautery on the hook instrument. The entire critical view of safety was identified including the triangle of Calot as well as the cystic duct and artery as the only two structures going into the gallbladder as well as the cystic plate behind the proximal gallbladder. A timeout was then taken and the cystic duct and artery were then clipped proximally and distally and cut with EndoShears. The gallbladder was then dissected off the liver bed using electrocautery on hook instrument with visualization of good hemostasis as well as no leaking ducts of Luschka. The gallbladder was removed through the 10 mm port site using an EndoCatch bag. The hernia sac was then excised under direct visualization using electrocautery. We then proceeded with a primary hernia repair. The lateral edge of the hernia sac was retracted anteriorly using a Ashlee and a 0 Vicryl suture on a UR needle was then tied to the end. We then proceeded with a running 0 Vicryl suture approximating the entirety of the defect, which was also visualized under the laparoscope. The abdomen was then desufflated and remaining ports removed. All skin incisions were closed using 4-0 Monocryl running subcuticular sutures. Wounds were then cleaned and covered with the Dermabond. The patient tolerated the procedure well. We will start IV normal pain medication as well as a clear liquid diet. Once he is tolerating clears, has good pain control with oral pain medications, ambulating well, we will discharge him home. He will be instructed to do no heavy lifting for the next two weeks. Job ID: [id number] DocumentID: [id number] Dictated Date: 08/08/2020 16:42:25 Fisheries Diver Date: 08/08/2020 19:41:49 Dictated By: CALLI GODINEZ MD
== END 2020-08-08 22:10 ==
LOC: SDC 11:43 → 4TH 17:45 → SDC 22:10
PROVIDERS: ATTEND Surgery
DX: K80.10 Calculus of gallbladder with chronic cholecystitis without obstruction (principal); K42.9 Umbilical hernia without obstruction or gangrene; K76.0 Fatty (change of) liver, not elsewhere classified; E11.9 Type 2 diabetes mellitus without complications; Z79.84 Long term (current) use of oral hypoglycemic drugs; Z79.899 Other long term (current) drug therapy; F32.9 Major depressive disorder, single episode, unspecified; Z80.0 Family history of malignant neoplasm of digestive organs; Z80.1 Family history of malignant neoplasm of trachea, bronchus and lung; Z82.49 Family history of ischemic heart disease and other diseases of the circulatory system
CPT/HCPCS: 36415; 82947; 85025; 87081; 94664

== ENCOUNTER → 2020-08-13 | Outpatient (CLI) | payer OTHER ==
[~2020-08-13] MED LIST changes: +CIPR-225 PO; +FOLI0.4T6 PO; +HYDR-3817 PO; +IBUP-2473 PO; +METF-399 PO; +METR500T PO
== END ==
LOC: RAD 10:03
DX: Z53.9 Procedure and treatment not carried out, unspecified reason (principal)

== ENCOUNTER → 2020-08-13 | Outpatient (CLI) | payer OTHER ==
[~2020-08-13] MED LIST changes: -CIPR-225 PO; -FOLI0.4T6 PO; -IBUP-2473 PO; -METF-399 PO; -METR500T PO
--- NOTE | 2020-08-13 14:26 | Diagnostic Imaging Report ---
Lumbar spine at 1122 INDICATION: Low back pain 3 views were obtained. The lateral view shows the vertebral body heights and alignment to be generally within normal limits and similar to the prior CT abdomen/pelvis exam of 07/27/2020. The intervertebral spaces are well-maintained. There is no fracture or acute bony abnormality evident. There is no sign of a paraspinal mass. The sacral iliac joints are symmetrical and within normal limits. IMPRESSION: 1. There is no evidence for an acute bony abnormality. 2. If there is clinical concern regarding spinal stenosis or nerve root encroachment, then MRI would be recommended for further study. Dictated by: Dictated on workstation # [id number]
== END ==
LOC: RAD 10:22
PROVIDERS: ATTEND Surgery
DX: Z02.71 Encounter for disability determination (principal); M54.5 Low back pain
CPT/HCPCS: 72100

== ENCOUNTER 2020-08-18 00:17 | Observation (INO) | payer OTHER ==
[~2020-08-18] VITALS: Ht 170.2 cm; Wt 95.5 kg
[2020-08-18] MEDS ORDERED: NS IV 1000 ML 1,000 ML IV SCH (00:30)
[2020-08-18] MEDS ORDERED: ONDANSETRON 4 MG/2 ML (SDV) Z0FRAN IVP ONE (00:30)
[2020-08-18 00:38] LABS: BASOPHILS # (AUTO) 0.1 10^3/uL (0.0-0.1); BASOPHILS % (AUTO) 1 % (0-10); EOSINOPHILS # (AUTO) 0.2 10^3/uL (0.0-0.3); EOSINOPHILS % (AUTO) 2 % (0-10); HEMATOCRIT 39 % (40-54); HEMOGLOBIN 13.8 g/dL (13.3-17.7); LYMPHOCYTES # (AUTO) 1.4 10^3/uL (1.0-4.0); LYMPHOCYTES % (AUTO) 14 % (12-44); MEAN CORPUSCULAR HEMOGLOBIN 38 pg (25-34); MEAN CORPUSCULAR HGB CONC 35 g/dL (32-36); MEAN CORPUSCULAR VOLUME 107 fL (80-99); MEAN PLATELET VOLUME 11.4 fL (9.0-12.2); MONOCYTES # (AUTO) 0.4 10^3/uL (0.0-1.0); MONOCYTES % (AUTO) 4 % (0-12); NEUTROPHILS # (AUTO) 7.5 10^3/uL (1.8-7.8); NEUTROPHILS % (AUTO) 78 % (42-75); PLATELET COUNT 138 10^3/uL (130-400); WHITE BLOOD COUNT 9.6 10^3/uL (4.3-11.0)
[2020-08-18 00:45] LABS: AMYLASE 46 U/L (25-125); CHLORIDE 104 MMOL/L (98-107); POTASSIUM 3.8 MMOL/L (3.6-5.0); SODIUM 138 MMOL/L (135-145)
[2020-08-18 00:46] LABS: CALCIUM 9.1 MG/DL (8.5-10.1)
[2020-08-18 00:47] LABS: GLUCOSE 162 MG/DL (70-105); TOTAL PROTEIN 7.8 GM/DL (6.4-8.2)
[2020-08-18 00:48] LABS: BILIRUBIN,URINE NEGATIVE (NEGATIVE); CLARITY,URINE CLEAR; COLOR,URINE YELLOW; GLUCOSE, URINE (UA) NEGATIVE (NEGATIVE); KETONES,URINE NEGATIVE (NEGATIVE); LEUKOCYTE ESTERASE ,URINE NEGATIVE (NEGATIVE); NITRITE,URINE NEGATIVE (NEGATIVE); PH,URINE 7.5 (5-9); PROTEIN,URINE TRACE (NEGATIVE)
[2020-08-18 00:48] LABS: CARBON DIOXIDE 22 MMOL/L (21-32)
[2020-08-18 00:49] LABS: BILIRUBIN,TOTAL 1.6 MG/DL (0.1-1.0)
[2020-08-18 00:50] LABS: ALKALINE PHOSPHATASE 133 U/L (40-136)
[2020-08-18 00:51] LABS: CREATININE SERUM 0.73 MG/DL (0.60-1.30); GFR ESTIMATED > 60
[2020-08-18 00:52] LABS: BUN/CREATININE RATIO 8
[2020-08-18 00:53] LABS: ALANINE AMINOTRANSFERASE 51 U/L (0-55)
[2020-08-18 00:54] LABS: LIPASE 14 U/L (8-78)
[2020-08-18 01:06] LABS: BACTERIA,URINE NEGATIVE /HPF
[2020-08-18 01:07] LABS: SQUAMOUS EPITHELIAL CELL,UR RARE /HPF
[2020-08-18] MEDS ORDERED: HOLD METFORMIN - RECEIVED CONTRAST 20 ML VIAL IV SCH (01:30)
[2020-08-18] MEDS ORDERED: IOHEXOL 350 MG/ML 100 ML (OMNIPAQUE 350) VIAL IV ONE (01:30)
[2020-08-18] MEDS ORDERED: NS 100 ML (IVPB) BAG IV ONE (01:30)
--- NOTE | 2020-08-18 04:30 | ED Abdominal Pain ---
General Chief Complaint: Abdominal/GI Problems Stated Complaint: POST CHOLECYSTECTOMY INTRA-HEPATIC FLUID ; HTN HYP Nursing Triage Note: PRESENTS [facility] GURNEY FROM HOME W/CO ABD PAIN, NAUSEA, AND VOMITING. STATES HE HAS A CHOLECYSTECTOMY PREFORMED BY DR. GODINEZ ON 08/09/20. STATES HE HAS INTERMITTENT R ABD DISCOMFORT SINCE PROCEDURE THAT BECAME ACCOMPANIED BY NAUSEA AND X1 EPISODE OF EMESIS CASH APPLICATION REPRESENTATIVE. STATES MOST RECENT EPISODE OF R ABD DISCOMFORT BEGAN AT 2200. STATES HE TOOK 5/325MG HYDROCODONE "A COUPLE HOURS" CASH APPLICATION REPRESENTATIVE. DENIES FEVER OR CHILLS. Sepsis Screen: No Definite Risk Source of Information: Patient History of Present Illness Date Seen by Provider: Aug 18, 2020 Time Seen by Provider: 00:20 Initial Comments PT ARRIVES VIA EMS FROM HOME PT HAD LAPAROSCOPIC CHOLECYSTECTOMY AND UMBILICAL HERNIA REPAIR BY DR. GODINEZ ON 08/08/20 PT STATES HE DID NOT HAVE ANY PAIN UNTIL 2-3 DAYS AFTER THE SURGERY, WAS HAVING INTERMITTENT PAIN, AND NOW HAS HAD GRADUAL INCREASE IN PAIN SINCE THEN--PAIN IS ALL ON RIGHT SIDE OF ABDOMEN. PAIN HAS BEEN MUCH WORSE AND CONSTANT ALL DAY TODAY PAIN IS MUCH WORSE TODAY PAIN IS WORSE WITH COUGHING OR BENDING OVER. TONIGHT HAS HAD NAUSEA AND VOMITED X 1--10 MINUTES PRIOR TO CALLING EMS PT HAS BEEN TAKING HYDROCODONE WITHOUT RELIEF, LAST DOSE AT 2200. PT HAS BEEN HAVING NORMAL BM'S AND LAST BM WAS 1 HOUR AGO AND WAS NORMAL. NO PROBLEMS URINATING AND VOIDING A NORMAL AMOUNT NO FEVER/SWEATS/CHILLS NO DIZZINESS OR SYNCOPE STATES HE HAS BEEN DRINKING FLUIDS WELL, BUT NOT BEEN EATING MUCH HAS NOT HAD A FOLLOW UP APPOINTMENT WITH DR. GODINEZ YET, AND HAS NOT ATTEMPTED TO CONTACT HIM FOR THIS PROBLEM PT ALSO STATES THAT HE WAS RECENTLY DX WITH HTN AND DIABETES, AND WAS PRESCR IBED MEDICATIONS PRIOR TO HIS SURGERY, BUT HAS NOT STARTED THEM YET. Allergies and Home Medications Allergies Coded Allergies: No Allergy Information Available (Unverified , 08/08/20) Home Medications Hydrocodone/Acetaminophen 1 Each Tablet, 1 EACH PO Q4H Prescribed by: CALLI GODINEZ on 08/08/20 1232 Meclizine HCl 25 Mg Tablet, 25 MG PO TID PRN for DIZZINESS Prescribed by: VIDHYA ROME on 06/02/20 1628 Metformin HCl 500 Mg Tablet, 500 MG PO BID, (Reported) Ondansetron 4 Mg Tab.rapdis, 4 MG PO Q4H Prescribed by: SAAD MARRERO on 07/28/20 0042 Sertraline HCl 100 Mg Tablet, 100 MG PO DAILY, (Reported) Tramadol HCl 50 Mg Tablet, 50 MG PO Q4H Prescribed by: SAAD MARRERO on 07/28/2041 Patient Home Medication List Home Medication List Reviewed: Yes Review of Systems Review of Systems Constitutional: no symptoms reported; No chills, No dizziness, No fever EENTM: No Symptoms Reported Respiratory: No Symptoms Reported; Denies Shortness of Air Cardiovascular: No Symptoms Reported; Denies Chest Pain, Denies Lightheadedness, Denies Palpitations, Denies Syncope Gastrointestinal: See HPI, Abdominal Pain; Denies Constipated, Denies Diarrhea; Nausea, Poor Appetite, Vomiting Genitourinary: No Symptoms Reported Musculoskeletal: no symptoms reported; No back pain Skin: no symptoms reported Psychiatric/Neurological: No Symptoms Reported Endocrine: No Symptoms Reported Hematologic/Lymphatic: No Symptoms Reported Past Aldiogr-Ywwxjb-Gqopss Hx Past Med/Social Hx: Reviewed and Corrections made Patient Social History Alcohol Use: Occasionally Uses Drug of Choice: DENIES Smoking Status: Current Everyday Smoker (1 PPD) Type Used: Cigarettes 2nd Hand Smoke Exposure: Yes Recent Infectious Disease Expo: No Recent Hopitalizations: No Immunizations Up To Date Date of Influenza Vaccine: Feb 06, 2020 Seasonal Allergies Seasonal Allergies: No Past Medical History Surgeries: Yes (LAP ADARSH AND UMBILICAL HERNIA REPAIR 08/08/[address] GODINEZ) Abdominal, Gallbladder Respiratory: No Currently Using CPAP: No Currently Using BIPAP: No Cardiac: Yes (NOT STARTED MEDICATIONS YET) Hypertension Neurological: No ("brain is small for age") Genitourinary: No Gastrointestinal: Yes (S/P ADARSH & UMBILICAL HERNIA REPAIR 08/08/20) Abdominal Hernia, Gall Bladder Disease Musculoskeletal: Yes (bone spurs in back) Chronic Back Pain Endocrine: Yes (OBESITY; PRESCRIBED MEDS FOR DM, BUT HAS NOT STARTED THEM YET) Diabetes, Non-Insulin dep HEENT: Yes Hearing Impairment: Hard of Hearing, Bilateral Hearing Aide Cancer: No Psychosocial: Yes Depression Integumentary: No Blood Disorders: No Physical Exam Vital Signs Vital Signs - First Documented 08/18/20 00:20 Temp 36.7 Pulse 78 Resp 18 B/P (MAP) 145/91 (109) Pulse Ox 97 O2 Delivery Room Air Capillary Refill : Less Than 3 Seconds Height/Weight/BMI Height: '" Weight: lbs. oz. kg; 32.00 BMI Method: General Appearance: WD/WN, no apparent distress, obese, other (DOES NOT APPEAR TO BE IN ANY DISCOMFORT OR DISTRESS) Respiratory: normal breath sounds, no respiratory distress, no accessory muscle use Cardiovascular: regular rate, rhythm Gastrointestinal: normal bowel sounds, no organomegaly, no pulsatile mass, tenderness (DIFFUSE RIGHT SIDED ABDOMINAL TENDERNESS. ALL SURGICAL WOUNDS HEALING WELL WITHOUT SIGNS OF INFECTION. OLD/DRIED BLOOD ON DRESSING ON RIGHT MID ABD WOUND), other (OBESE/ROTUND, BUT SOFT. ) Progress/Results/Core Measures Results/Orders Lab Results Laboratory Tests Test 08/18/20 00:28 08/18/20 00:40 Range/Units White Blood Count 9.6 4.3-11.0 10^3/uL Red Blood Count 3.67 L 4.30-5.52 10^6/uL Hemoglobin 13.8 13.3-17.7 g/dL Hematocrit 39 L 40-54 % Mean Corpuscular Volume 107 H 80-99 fL Mean Corpuscular Hemoglobin 38 H 25-34 pg Mean Corpuscular Hemoglobin Concent 35 32-36 g/dL Red Cell Distribution Width 15.2 H 10.0-14.5 % Platelet Count 138 130-400 10^3/uL Mean Platelet Volume 11.4 9.0-12.2 fL Immature Granulocyte % (Auto) 1 % Neutrophils (%) (Auto) 78 H 42-75 % Lymphocytes (%) (Auto) 14 12-44 % Monocytes (%) (Auto) 4 0-12 % Eosinophils (%) (Auto) 2 0-10 % Basophils (%) (Auto) 1 0-10 % Neutrophils # (Auto) 7.5 1.8-7.8 10^3/uL Lymphocytes # (Auto) 1.4 1.0-4.0 10^3/uL Monocytes # (Auto) 0.4 0.0-1.0 10^3/uL Eosinophils # (Auto) 0.2 0.0-0.3 10^3/uL Basophils # (Auto) 0.1 0.0-0.1 10^3/uL Immature Granulocyte # (Auto) 0.1 0.0-0.1 10^3/uL Percent Immature Platelet Fraction 6.7 0.0-7.6 % Sodium Level 138 135-145 MMOL/L Potassium Level 3.8 3.6-5.0 MMOL/L Chloride Level 104 98-107 MMOL/L Carbon Dioxide Level 22 21-32 MMOL/L Anion Gap 12 5-14 MMOL/L Blood Urea Nitrogen 6 L 7-18 MG/DL Creatinine 0.73 0.60-1.30 MG/DL Estimat Glomerular Filtration Rate > 60 BUN/Creatinine Ratio 8 Glucose Level 162 H 70-105 MG/DL Calcium Level 9.1 8.5-10.1 MG/DL Corrected Calcium 9.1 8.5-10.1 MG/DL Total Bilirubin 1.6 H 0.1-1.0 MG/DL Aspartate Amino Transf (AST/SGOT) 26 5-34 U/L Alanine Aminotransferase (ALT/SGPT) 51 0-55 U/L Alkaline Phosphatase 133 40-136 U/L Total Protein 7.8 6.4-8.2 GM/DL Albumin 4.0 3.2-4.5 GM/DL Amylase Level 46 25-125 U/L Lipase 14 8-78 U/L Urine Color YELLOW Urine Clarity CLEAR Urine pH 7.5 5-9 Urine Specific [place] 1.020 1.016-1.022 Urine Protein TRACE H NEGATIVE Urine Glucose (UA) NEGATIVE NEGATIVE Urine Ketones NEGATIVE NEGATIVE Urine Nitrite NEGATIVE NEGATIVE Urine Bilirubin NEGATIVE NEGATIVE Urine Urobilinogen 4.0 < = 1.0 MG/DL Urine Leukocyte Esterase NEGATIVE NEGATIVE Urine RBC (Auto) NEGATIVE NEGATIVE Urine RBC NONE /HPF Urine WBC NONE /HPF Urine Squamous Epithelial Cells RARE /HPF Urine Crystals NONE /LPF Urine Bacteria NEGATIVE /HPF Urine Casts NONE /LPF Urine Mucus MODERATE H /LPF Urine Culture Indicated NO My Orders Orders - SAAD MARRERO DO Ed Iv/Invasive Line Start (08/18/20 00:28) Monitor-Rhythm Ecg Trace Only (08/18/20 00:28) Amylase (08/18/20 00:28) Cbc With Automated Diff (08/18/20 00:28) Comprehensive Metabolic Panel (08/18/20 00:28) Lipase (08/18/20 00:28) Ua Culture If Indicated (08/18/20:28) Ondansetron Injection (Zofran Injectio (08/18/20 00:30) Ed Iv/Invasive Line Start (08/18/20 00:28) Ns Iv 1000 Ml (Sodium Chloride 0.9%) (08/18/20 00:30) Ct Abdomen/Pelvis W (08/18/20 01:07) Iohexol Injection (Omnipaque 350 Mg/Ml 1 (08/18/20 01:30) Received Contrast (Hold Metformin- Contr (08/18/20 01:30) Ns (Ivpb) (Sodium Chloride 0.9% Ivpb Bag (08/18/20 01:30) Medications Given in ED Current Medications Medications Dose Ordered Sig/Radha Route Start Time Stop Time Status Last Admin Dose Admin Iohexol 100 ml ONCE ONCE IV 08/18/20 01:30 08/18/20 01:35 DC 08/18/20 01:30 100 ML Ondansetron HCl 4 mg ONCE ONCE IVP 08/18/20 00:30 08/18/20 00:32 DC 08/18/20 00:41 4 MG Sodium Chloride 80 ml ONCE ONCE IV 08/18/20 01:30 08/18/20 01:35 DC 08/18/20 01:30 80 ML Vital Signs/I&O 08/18/20 00:20 Temp 36.7 Pulse 78 Resp 18 B/P (MAP) 145/91 (109) Pulse Ox 97 O2 Delivery Room Air Blood Pressure Mean: 109 Progress Progress Note : Progress Note PT RESTED QUIETLY FOR ENTIRE ER STAY OFFERED PAIN MEDICATION AND PT DECLINED. NO DETERIORATION IN PT'S CONDITION DURING ER STAY VITALS STABLE, NO FEVER. Diagnostic Imaging Comments CT ABDOMEN/PELVIS--POST CHOLECYSTECTOMY WITH FLUID COLLECTION IN GB FOSSA. THERE IS COMPLEX FLUID EXTENDING ALONG CAUDAL RIGHT HEPATIC LOBE THAT APPEARS BOTH SUBCAPSULAR AND INTRA-HEPATIC. SUSPECT DEVELOPING ABSCESS. PER [facility] REPORT VIA FAX AT [phone]--SPOKE WITH DR. HYDE, [facility] RADIOLOGIST, HE HAS REVIEWED AGAIN, AND MEASUREMENTS OF FLUID COLLECTION ARE ROUGHLY 10.7 X 4 X 4 CM. FINDINGS COULD REPRESENT DEVELOPING ABSCESS, MAY REPRESENT A HEMATOMA. UNLIKELY THAT THIS IS A BILE LEAK, THERE IS NO FREE FLUID IN UPPER ABDOMEN Reviewed: Reviewed by Me, Discussed w/Radiologist Departure Communication (Admissions) 0985--SPOKE WITH DR. MCDONOUGH, SURGEON CHIEF INFORMATION SECURITY OFFICER. ADVISES TRANSFER IF POSSIBLE BILE LEAK OR ABSCESS, NO GI OR IR AVAILABLE HERE. 0300--SPOKE WITH DR. MCDONOUGH AGAIN AND REVIEWED ADDITIONAL INFORMATION FROM RADIOLOGIST. HE ACCEPTS PT FOR ADMIT, AND WILL OBTAIN HIDA SCAN IN AM TO R/O BILE LEAK. AND GIVE PAIN CONTROL. Impression Primary Impression: POST CHOLECYSTECTOMY INTRA-HEPATIC FLUID Additional Impressions: HTN (hypertension) Hyperglycemia Disposition: ADMITTED INPATIENT Condition: Stable Admissions Decision to Admit Reason: Admit from ER (General) Decision to Admit/Date: Aug 18, 2020 Time/Decision to Admit Time: 03:00 Departure-Patient Inst. Referrals: RYLAN GLASGOW MD (PCP) Primary Care Physician SAAD MARRERO DO Aug 18, 2020 04:30
[2020-08-18 04:39] VITALS: BP 141/70
[2020-08-18] MEDS ORDERED: ONDANSETRON 4 MG/2 ML (SDV) Z0FRAN IV PRN (04:45)
[2020-08-18] MEDS ORDERED: fentaNYL INJ 100 MCG/2 ML AMP IV PRN (04:45)
[2020-08-18] MEDS: D5 1/2 NS W/KCL 20 MEQ/L 1,000 ML IV SCH ×3 (05:09→18:30)
[2020-08-18] MEDS: inSUlin ASPART (NovoLOG) 1 UNIT/0.01 ML (CHARGE PER UNIT) SC SCH ×4 (05:11→21:00)
--- NOTE | 2020-08-18 07:06 | Diagnostic Imaging Report ---
EXAMINATION: CT abdomen and pelvis with intravenous contrast. TECHNIQUE: Multiple contiguous axial images were obtained through the abdomen and pelvis after the uneventful administration of intravenous contrast. All CT scans use one or more of the following dose optimizing techniques: automated exposure control, MA and/or KvP adjustment based on patient size and exam type or iterative reconstruction. HISTORY: ABD PAIN, POST ADARSH COMPARISON: CT abdomen and pelvis 07/27/2020 FINDINGS: Lung bases: There are patchy groundglass opacities within the lung bases. Solid organs: Diffuse hypoattenuation of the liver which can be seen with hepatic steatosis. The gallbladder is surgically absent. There is a loculated fluid collection within the gallbladder fossa which measures up to 11.7 x 3.7 x 3.3 cm and extends along the inferior margin of the liver. Attending collection has a focus of increased attenuation with a tiny focus of air. This could represent true air component or a dropped stone. There is no biliary ductal dilation. Pancreas is normal. The spleen is enlarged and measures up to 20.9 cm. Adrenal glands are normal. The kidneys are normal without hydronephrosis. Bowel: The stomach and small bowel are normal without obstruction. There are a few scattered colonic diverticula. The appendix is normal. Peritoneum: There is trace free fluid within the lower abdomen. No intra-abdominal free air. No suspicious lymphadenopathy. Vasculature: Normal without aneurysm. Musculoskeletal: No suspicious osseous lesion or compression fracture. Pelvis: The prostate gland is normal. The urinary bladder is normal. IMPRESSION: 1. A loculated fluid collection within the gallbladder fossa. There is an internal focus of increased attenuation with associated focus of air which could represent findings concerning for abscess formation but could also represent a dropped stone within the collection. 2. Patchy groundglass opacities in the lung bases. These findings could represent atelectasis or atypical infection. 3. Hepatic steatosis. 4. Splenomegaly. 5. Agree with preliminary interpretation. Dictated by: Dictated on workstation # [id number]
[2020-08-18] MEDS: PANTOPRAZOLE 40 MG (PROTONIX) VIAL IV SCH (08:12)
[2020-08-18 08:26] VITALS: BP 146/88
--- NOTE | 2020-08-18 09:38 | Consultation - Hospitalist ---
HPI History of Present Illness: HPI/Chief Complaint Chief complaint: Abdominal pain post cholecystectomy History present illness: This a 50-year-old white male who presented to the ER after abdominal pain increased with fever. Patient had an uneventful c holecystectomy by Dr. Bradshaw and assessment and CT scan showed a fluid collection in the post cholecystectomy region. HIDA scan obtained and will await those results. Currently he denies any pain and his blood pressure and blood sugar seem to be stable. Source: patient, RN/MD, old records Exam Limitations: no limitations Date Seen 08/18/20 Attending Physician Pb Mendoza DO PCP Anders Stevenson MD Referring Physician Date of Admission Aug 18, 2020 at 03:00 Home Medications & Allergies Home Medications Reviewed patient Home Medication Reconciliation performed by pharmacy medication reconciliations upholstery technician and/or nursing. Patients Allergies have been reviewed. Allergies Allergies Coded Allergies No Allergy Information Available (Unverified08/08/20) Past Czcinal-Uobwbj-Nceeta Hx Patient Social History Marrital Status: single Employed/Student: employed Tobacco Use?: Yes Tobacco type used: Cigarettes Smoking Status: Current Everyday Smoker (1 PPD) Use of E-Cig and/or Vaping dev: No Substance use?: No Alcohol Use?: No Pt feels they are or have been: No Immunizations Up To Date Date of Influenza Vaccine: Feb 06, 2020 Seasonal Allergies Seasonal Allergies: No Current Status Advance Directives: No Communicates: Verbally Primary Language: Wallisian Preferred Spoken Language: Wallisian Is interpretation needed?: No Sensory deficits: Hearing impairment Past Medical History Surgeries: Abdominal, Gallbladder Currently Using CPAP: No Currently Using BIPAP: No Hypertension Abdominal Hernia, Gall Bladder Disease Chronic Back Pain Diabetes, Non-Insulin dep Hearing Impairment: Hard of Hearing, Bilateral Hearing Aide Depression Blood Disorders: No Review of Systems Constitutional: see HPI Gastrointestinal: abdominal pain, loss of appetite Physical Exam Physical Exam Vital Signs Vital Signs - First Documented 08/18/20 00:20 Temp 36.7 Pulse 78 Resp 18 B/P (MAP) 145/91 (109) Pulse Ox 97 O2 Delivery Room Air Capillary Refill : Less Than 3 Seconds Height, Weight, BMI Height: '" Weight: lbs. oz. kg; 32.96 BMI Method: General Appearance: No Apparent Distress, WD/WN, Chronically ill Eyes: Bilateral Eye Normal Inspection, Bilateral Eye PERRL HEENT: PERRL/EOMI, Normal ENT Inspection, Pharynx Normal Neck: Full Range of Motion, Normal Inspection, Non Tender, Supple, Carotid Bruit Respiratory: Chest Non Tender, Lungs Clear, Normal Breath Sounds, No Accessory Muscle Use, No Respiratory Distress Cardiovascular: Regular Rate, Rhythm, No Edema, No Gallop, No JVD, No Murmur, Normal Peripheral Pulses Gastrointestinal: Normal Bowel Sounds, No Organomegaly, No Pulsatile Mass, Soft, Tenderness (Mild epigastric region) Back: Normal Inspection, No CVA Tenderness, No Vertebral Tenderness Extremity: Normal Capillary Refill, Normal Inspection, Normal Range of Motion, Non Tender, No Calf Tenderness, No Pedal Edema Neurologic/Psychiatric: Alert, Oriented x3, No Motor/Sensory Deficits, Normal Mood/Affect Skin: Normal Color, Warm/Dry Lymphatic: No Adenopathy Results Results/Procedures Labs Laboratory Tests 08/18/20 00:28 Patient resulted labs reviewed. Assessment/Plan Assessment and Plan Assess & Plan/Chief Complaint Assessment: Abdominal pain status post cholecystectomy Diabetes mellitus Hypertension Smoker Pain control Monitor blood pressure Monitor blood sugar Diagnosis/Problems Diagnosis/Problems (1) POST CHOLECYSTECTOMY INTRA-HEPATIC FLUID RADHA TAN DO Aug 18, 2020 09:38
--- NOTE | 2020-08-18 10:19 | Diagnostic Imaging Report ---
EXAMINATION: Hepatobiliary scan HISTORY: Nausea status post cholecystectomy COMPARISON: CT abdomen pelvis 08/18/2020. TECHNIQUE: Anterior scintigraphic imaging of the abdomen was performed after the intravenous administration of 5.47 mCi Tc-99m Choletec. FINDINGS: The upper abdomen was imaged for 60 minutes with the gamma camera. There is prompt homogeneous uptake of radiopharmaceutical by the liver. There is activity in the common duct by 10 minutes. Small bowel activity is seen by 15 minutes. No abnormal accumulation of radiotracer near the gallbladder fossa. IMPRESSION: 1. Patent common bile duct. 2. No abnormal radiotracer accumulation within the gallbladder fossa to suggest a biliary leak. Dictated by: Dictated on workstation # [id number]
[2020-08-18 12:23] VITALS: BP 148/85
--- NOTE | 2020-08-18 13:23 | History & Physical-Surgical ---
History of Present Illness History of Present Illness Reason for visit/HPI Chief complaint lower quadrant abdominal pain nausea and vomiting Patient is a 50-year-old male who underwent laparoscopic cholecystectomy and umbilical hernia repair on 08/08/2020. Patient states that he did have pain for couple days after surgery and then this continued to worsen. Patient started having increasing severe pain last night where he is also having an episode of nausea and an episode of emesis. Patient states that nothing really made things better. He is trying to take hydrocodone with no improvement of pain. Pain had no radiation. He had a CT scan that demonstrated a fluid collection in the gallbladder fossa that could be abscess or hematoma. Patient also had a HIDA scan this morning which did not demonstrate any bile leak. Patient states that his pain is improved compared to last night. He is hungry with some appetite. He notes being recently diagnosed with diabetes. He has no other complaints at this time. Date of Admission Aug 18, 2020 at 03:00 Date Seen by a Provider: Aug 18, 2020 Time Seen by a Provider: 13:20 I consulted on this patient on 08/18/20 13:18 Attending Physician Klaus Mcdonough DO Admitting Physician Anders Stevenson MD Consult Allergies and Home Medications Allergies Coded Allergies: No Allergy Information Available (Unverified , 08/08/20) Home Medications Hydrocodone/Acetaminophen 1 Each Tablet, 1 EACH PO Q4H Prescribed by: CALLI BRADSHAW on 08/08/20 1232 Last Action: Reviewed Metformin HCl 500 Mg Tablet, 500 MG PO BID, (Reported) Last Action: Reviewed Sertraline HCl 100 Mg Tablet, 100 MG PO DAILY, (Reported) Last Action: Reviewed Patient Home Medication List Home Medication List Reviewed: Yes Past Pwwtyzw-Ageiqs-Eydzds Hx Patient Social History Drug of Choice: DENIES Smoking Status: Current Everyday Smoker (1 PPD) Type Used: Cigarettes 2nd Hand Smoke Exposure: Yes Recent Hopitalizations: No Alcohol Use?: No Have you traveled recently?: No Immunizations Up To Date Date of Influenza Vaccine: Feb 06, 2020 Seasonal Allergies Seasonal Allergies: No Surgeries History of Surgeries: Yes (LAP ADARSH AND UMBILICAL HERNIA REPAIR 08/08/[address] BRADSHAW) Surgeries: Abdominal, Gallbladder Respiratory History of Respiratory Disorde: No Cardiovascular History of Cardiac Disorders: Yes (NOT STARTED MEDICATIONS YET) Cardiac Disorders: Hypertension Neurological History of Neurological Disord: No ("brain is small for age") Genitourinary History of Genitourinary Disor: No Gastrointestinal History of Gastrointestinal Di: Yes (S/P ADARSH & UMBILICAL HERNIA REPAIR 08/08/20) Gastrointestinal Disorders: Abdominal Hernia, Gall Bladder Disease Musculoskeletal History of Musculoskeletal Dis: Yes (bone spurs in back) Musculoskeletal Disorders: Chronic Back Pain Endocrine History of Endocrine Disorders: Yes (OBESITY; PRESCRIBED MEDS FOR DM, BUT HAS NOT STARTED THEM YET) Endocrine Disorders: Diabetes, Non-Insulin dep HEENT History of HEENT Disorders: Yes Hearing Impairment: Hard of Hearing, Bilateral Hearing Aide Cancer History of Cancer: No Psychosocial History of Psychiatric Problem: Yes Behavioral Health Disorders: Depression Integumentary History of Skin or Integumenta: No Blood Transfusions History of Blood Disorders: No Reviewed Nursing Assessment Reviewed/Agree w Nursing PMH: Yes Family Medical History Significant Family History: No Pertinent Family Hx Review of Systems Constitutional: No chills, No diaphoresis EENTM: No blurred vision, No double vision Respiratory: No cough, No dyspnea on exertion, No short of breath Cardiovascular: No chest pain, No Hx of Intervention, No palpitations Gastrointestinal: abdominal pain (RUQ); No dysphagia, No hematemesis, No heartburn Genitourinary: No decreased output, No discharge Musculoskeletal: No neck pain Skin: No change in color, No change in hair/nails Psychiatric/Neurological: Denies Anxiety, Denies Depressed, Denies Emotional Problems All Other Systems Reviewed Negative Unless Noted: Yes (Negative excepted noted.) Physical Exam Vital Signs Vital Signs - First Documented 08/18/20 00:20 Temp 36.7 Pulse 78 Resp 18 B/P (MAP) 145/91 (109) Pulse Ox 97 O2 Delivery Room Air Capillary Refill : Less Than 3 Seconds Height, Weight, BMI Height: '" Weight: lbs. oz. kg; 32.96 BMI Method: General Appearance: No Apparent Distress, WD/WN HEENT: PERRL/EOMI, Normal ENT Inspection Neck: Non Tender, Supple Respiratory: Chest Non Tender, No Accessory Muscle Use, No Respiratory Distress Cardiovascular: Regular Rate, Rhythm, No JVD Gastrointestinal: Soft, Tenderness (ruq/ incisional) Rectal: Deferred Back: No CVA Tenderness, No Vertebral Tenderness Extremity: Normal Capillary Refill, Non Tender, No Calf Tenderness Neurologic/Psychiatric: Alert, Oriented x3 Skin: Normal Color, Warm/Dry, Other (Incisions clean dry intact no signs of infection) Lymphatic: No Adenopathy Data Review Labs Laboratory Tests 08/18/20 00:28: White Blood Count 9.6, Red Blood Count 3.67L, Hemoglobin 13.8, Hematocrit 39L, Mean Corpuscular Volume 107H, Mean Corpuscular Hemoglobin 38H, Mean Corpuscular Hemoglobin Concent 35, Red Cell Distribution Width 15.2H, Platelet Count 138, Mean Platelet Volume 11.4, Immature Granulocyte % (Auto) 1, Neutrophils (%) (Auto) 78H, Lymphocytes (%) (Auto) 14, Monocytes (%) (Auto) 4, Eosinophils (%) (Auto) 2, Basophils (%) (Auto) 1, Neutrophils # (Auto) 7.5, Lymphocytes # (Auto) 1.4, Monocytes # (Auto) 0.4, Eosinophils # (Auto) 0.2, Basophils # (Auto) 0.1, Immature Granulocyte # (Auto) 0.1, Percent Immature Platelet Fraction 6.7, Sodium Level 138, Potassium Level 3.8, Chloride Level 104, Carbon Dioxide Level 22, Anion Gap 12, Blood Urea Nitrogen 6L, Creatinine 0.73, Estimat Glomerular Filtration Rate > 60, BUN/Creatinine Ratio 8, Glucose Level 162H, Calcium Level 9.1, Corrected Calcium 9.1, Total Bilirubin 1.6H, Aspartate Amino Transf (AST/SGOT) 26, Alanine Aminotransferase (ALT/SGPT) 51, Alkaline Phosphatase 133, Total Protein 7.8, Albumin 4.0, Amylase Level 46, Lipase 14 08/18/20 00:40: Urine Color YELLOW, Urine Clarity CLEAR, Urine pH 7.5, Urine Specific [place] 1.020, Urine Protein TRACEH, Urine Glucose (UA) NEGATIVE, Urine Ketones NEGATIVE, Urine Nitrite NEGATIVE, Urine Bilirubin NEGATIVE, Urine Urobilinogen 4.0, Urine Leukocyte Esterase NEGATIVE, Urine RBC (Auto) NEGATIVE, Urine RBC NONE, Urine WBC NONE, Urine Squamous Epithelial Cells RARE, Urine Crystals NONE, Urine Bacteria NEGATIVE, Urine Casts NONE, Urine Mucus MODERATEH, Urine Culture Indicated NO 08/18/20 05:11: Glucometer 98 08/18/20 11:10: Glucometer 132H Assessment/Plan Assessment/Plan Admission Diagonsis Right upper quadrant abdominal pain status post laparoscopic cholecystectomy and hernia repair. Nausea and vomiting Abnormal CT scan with fluid collection at the gallbladder fossa question abscess versus hematoma HIDA scan did not demonstrate bile leak Patient without any leukocytosis. I feel this is more likely hematoma but there is a small drop of air or possible retained stone. We will repeat labs in the morning. Consider CT-guided drain placement if this is more likely abscess Pain control. Dr. Bradshaw will be back tomorrow we will transfer care tomorrow to him. Admission Status: Observation Assessment/Plan Right upper quadrant abdominal pain status post laparoscopic cholecystectomy and hernia repair. Nausea and vomiting Abnormal CT scan with fluid collection at the gallbladder fossa question abscess versus hematoma HIDA scan did not demonstrate bile leak Patient without any leukocytosis. I feel this is more likely hematoma but there is a small drop of air or possible retained stone. We will repeat labs in the morning. Consider CT-guided drain placement if this is more likely abscess Pain control. Dr. Bradshaw will be back tomorrow we will transfer care tomorrow to him. DM medicine consulted. KLAUS MCDONOUGH DO Aug 18, 2020 13:23
[2020-08-18 16:00] VITALS: BP 154/75
[2020-08-18 19:36] VITALS: BP 147/76
[2020-08-19] VITALS (7 sets, daily range): BP systolic 130–154; BP diastolic 69–92
[2020-08-19] MEDS: D5 1/2 NS W/KCL 20 MEQ/L 1,000 ML IV SCH ×4 (03:41→22:56)
[2020-08-19 04:59] LABS: BASOPHILS % (AUTO) 0 % (0-10); EOSINOPHILS # (AUTO) 0.2 10^3/uL (0.0-0.3); EOSINOPHILS % (AUTO) 2 % (0-10); HEMATOCRIT 37 % (40-54); HEMOGLOBIN 12.8 g/dL (13.3-17.7); LYMPHOCYTES # (AUTO) 1.8 10^3/uL (1.0-4.0); LYMPHOCYTES % (AUTO) 19 % (12-44); MEAN CORPUSCULAR HEMOGLOBIN 38 pg (25-34); MEAN CORPUSCULAR HGB CONC 35 g/dL (32-36); MEAN CORPUSCULAR VOLUME 108 fL (80-99); MEAN PLATELET VOLUME 12.1 fL (9.0-12.2); MONOCYTES # (AUTO) 0.5 10^3/uL (0.0-1.0); MONOCYTES % (AUTO) 5 % (0-12); NEUTROPHILS # (AUTO) 6.8 10^3/uL (1.8-7.8); NEUTROPHILS % (AUTO) 73 % (42-75); PLATELET COUNT 86 10^3/uL (130-400); WHITE BLOOD COUNT 9.3 10^3/uL (4.3-11.0)
[2020-08-19 05:00] LABS: ALBUMIN 3.6 GM/DL (3.2-4.5)
[2020-08-19 05:01] LABS: CHLORIDE 107 MMOL/L (98-107); POTASSIUM 4.2 MMOL/L (3.6-5.0); SODIUM 138 MMOL/L (135-145)
[2020-08-19 05:02] LABS: CALCIUM 9.1 MG/DL (8.5-10.1)
[2020-08-19 05:03] LABS: GLUCOSE 136 MG/DL (70-105)
[2020-08-19 05:04] LABS: CARBON DIOXIDE 20 MMOL/L (21-32)
[2020-08-19 05:05] LABS: BILIRUBIN,TOTAL 1.3 MG/DL (0.1-1.0)
[2020-08-19 05:06] LABS: ALKALINE PHOSPHATASE 106 U/L (40-136)
[2020-08-19 05:07] LABS: CREATININE SERUM 0.67 MG/DL (0.60-1.30); GFR ESTIMATED > 60
[2020-08-19 05:08] LABS: BUN/CREATININE RATIO 7
[2020-08-19 05:09] LABS: ALANINE AMINOTRANSFERASE 32 U/L (0-55)
[2020-08-19] MEDS: inSUlin ASPART (NovoLOG) 1 UNIT/0.01 ML (CHARGE PER UNIT) SC SCH ×4 (05:09→20:49)
--- NOTE | 2020-08-19 06:32 | Progress Note - Hospitalist ---
Subjective HPI/CC On Admission Date Seen by Provider: Aug 19, 2020 Time Seen by Provider: 10:00 Chief complaint: Abdominal pain post cholecystectomy History present illness: This a 50-year-old white male who presented to the ER after abdominal pain increased with fever. Patient had an uneventful cholecystectomy by Dr. Bradshaw and assessment and CT scan showed a fluid collection in the post cholecystectomy region. HIDA scan obtained and will await those results. Currently he denies any pain and his blood pressure and blood sugar seem to be stable. Subjective/Events-last exam Pt doing pretty well Denies any other issues Platelet count low so will repeat that Dr. Bradshaw will decide whether a CT-guided drain will need to be placed He does have some crackles in his bases so IS will be ordered Review of Systems General: Fatigue Gastrointestinal: Abdominal Pain Objective Exam Vital Signs Vital Signs Date Time Temp Pulse Resp B/P (MAP) Pulse Ox O2 Delivery O2 Flow Rate FiO2 08/19/20 23:16 36.5 71 18 134/69 (90) 95 Room Air Capillary Refill : Less Than 3 Seconds General Appearance: No Apparent Distress, WD/WN, Chronically ill Respiratory: Lungs Clear Cardiovascular: Regular Rate, Rhythm Neurologic/Psychiatric: Alert, Oriented x3 Results/Procedures Lab Laboratory Tests 08/19/20 11:05 Patient resulted labs reviewed. Assessment/Plan Assessment and Plan Assess & Plan/Chief Complaint Assessment: Abdominal pain status post cholecystectomy Diabetes mellitus Hypertension Smoker Pain control Monitor blood pressure Monitor blood sugar 08/19/2020: Possible CT-guided drainage Monitor labs Monitor blood pressure Monitor sugar Diagnosis/Problems Diagnosis/Problems (1) POST CHOLECYSTECTOMY INTRA-HEPATIC FLUID RADHA TAN DO Aug 19, 2020 06:32
[2020-08-19] MEDS: PANTOPRAZOLE 40 MG (PROTONIX) VIAL IV SCH (07:58)
[2020-08-19] MEDS ORDERED: HYDR-3817 PO ×2 (09:44)
[2020-08-19] MEDS ORDERED: IBUP-2473 PO ×2 (09:44)
--- NOTE | 2020-08-19 16:04 | Progress Note ---
Subjective Date Seen by a Provider: Aug 19, 2020 Time Seen by a Provider: 15:00 Subjective/Events-last exam doing much better today. no nausea/vomiting. tolerating clears. having BM's. no fever/chills. WBC normal. Objective Exam Vital Signs Date Time Temp Pulse Resp B/P (MAP) Pulse Ox O2 Delivery O2 Flow Rate FiO2 08/19/20 11:35 36.5 71 20 142/81 (101) 95 Room Air 08/19/20 08:00 97 Room Air 08/19/20 07:19 36.0 68 20 154/76 (102) 97 Room Air 08/19/20 04:00 36.2 72 18 153/90 (111) 98 Room Air 08/19/20 00:00 36.7 86 18 149/92 (111) 97 Room Air 08/18/20 20:00 Room Air 08/18/20 19:36 36.5 75 8 147/76 (99) 96 Room Air I & O 08/19/20 06:59 Intake Total 1205 ml Balance 1205 ml Capillary Refill : Less Than 3 Seconds General Appearance: No Apparent Distress HEENT: PERRL/EOMI Neck: Full Range of Motion Respiratory: Chest Non Tender, Lungs Clear Cardiovascular: Regular Rate, Rhythm Gastrointestinal: normal bowel sounds, soft, tenderness Extremity: Normal Capillary Refill Neurologic/Psychiatric: Alert, Oriented x3 Skin: Normal Color Lymphatic: No Adenopathy Results Lab Laboratory Tests 08/18/20 20:24: Glucometer 117H 08/19/20 04:39: White Blood Count 9.3, Red Blood Count 3.41L, Hemoglobin 12.8L, Hematocrit 37L, Mean Corpuscular Volume 108H, Mean Corpuscular Hemoglobin 38H, Mean Corpuscular Hemoglobin Concent 35, Red Cell Distribution Width 15.2H, Platelet Count 86L, Mean Platelet Volume 12.1, Immature Granulocyte % (Auto) 1, Neutrophils (%) (Auto) 73, Lymphocytes (%) (Auto) 19, Monocytes (%) (Auto) 5, Eosinophils (%) (Auto) 2, Basophils (%) (Auto) 0, Neutrophils # (Auto) 6.8, Lymphocytes # (Auto) 1.8, Monocytes # (Auto) 0.5, Eosinophils # (Auto) 0.2, Basophils # (Auto) 0.0, Immature Granulocyte # (Auto) 0.1, Sodium Level 138, Potassium Level 4.2, Chloride Level 107, Carbon Dioxide Level 20L, Anion Gap 11, Blood Urea Nitrogen 5L, Creatinine 0.67, Estimat Glomerular Filtration Rate > 60, BUN/Creatinine Ratio 7, Glucose Level 136H, Calcium Level 9.1, Corrected Calcium 9.4, Total Bilirubin 1.3H, Aspartate Amino Transf (AST/SGOT) 22, Alanine Aminotransferase (ALT/SGPT) 32, Alkaline Phosphatase 106, Total Protein 7.0, Albumin 3.6 08/19/20 04:52: Glucometer 132H 08/19/20 11:05: Platelet Count 130 08/19/20 11:31: Glucometer 130H 08/19/20 15:51: Glucometer 99 Assessment/Plan Assessment/Plan Assess & Plan/Chief Complaint intraabdominal hematoma/abscess s/p laparoscopic cholecystectomy POD#10. doing much better, no fever/chills, WBC normal. will advance diet as tolerated. if asx will d/c home with PO abx. CALLI GODINEZ MD Aug 19, 2020 16:04
[2020-08-19] MEDS ORDERED: CIPR-225 PO ×2 (16:07)
[2020-08-19] MEDS ORDERED: TRAM-42 PO ×2 (16:07)
[2020-08-19] MEDS ORDERED: METR500T PO ×2 (16:07)
--- NOTE | 2020-08-19 16:08 | Discharge Inst-Surgical ---
D/C Lap Instructions-HERBERT New, Converted, or Re-Newed RX: RX on Chart Follow Up Appt in 1 week Activity as tolerated Regular Diet Symptoms to Report: Fever over 101 degree F, Nausea/Vomiting Infection Signs and Symptoms to report: Increased redness, Foul odor of wound, Increased drainage Bathing instructions: May shower Operative Area Clean/Dry; Keep incision clean/dry If any problems/questions: Contact your physician or go to Emergency Room CALLI GODINEZ MD Aug 19, 2020 16:08
[2020-08-20] MEDS: D5 1/2 NS W/KCL 20 MEQ/L 1,000 ML IV SCH (05:35)
[2020-08-20 06:03] LABS: BASOPHILS # (AUTO) 0.1 10^3/uL (0.0-0.1); BASOPHILS % (AUTO) 1 % (0-10); EOSINOPHILS # (AUTO) 0.2 10^3/uL (0.0-0.3); EOSINOPHILS % (AUTO) 2 % (0-10); HEMATOCRIT 36 % (40-54); HEMOGLOBIN 12.3 g/dL (13.3-17.7); LYMPHOCYTES # (AUTO) 2.1 10^3/uL (1.0-4.0); LYMPHOCYTES % (AUTO) 22 % (12-44); MEAN CORPUSCULAR HEMOGLOBIN 37 pg (25-34); MEAN CORPUSCULAR HGB CONC 35 g/dL (32-36); MEAN CORPUSCULAR VOLUME 107 fL (80-99); MEAN PLATELET VOLUME 11.6 fL (9.0-12.2); MONOCYTES # (AUTO) 0.5 10^3/uL (0.0-1.0); MONOCYTES % (AUTO) 5 % (0-12); NEUTROPHILS # (AUTO) 6.8 10^3/uL (1.8-7.8); NEUTROPHILS % (AUTO) 70 % (42-75); PLATELET COUNT 122 10^3/uL (130-400); WHITE BLOOD COUNT 9.6 10^3/uL (4.3-11.0)
[2020-08-20 06:11] LABS: ALBUMIN 3.8 GM/DL (3.2-4.5); CHLORIDE 105 MMOL/L (98-107); POTASSIUM 4.2 MMOL/L (3.6-5.0); SODIUM 137 MMOL/L (135-145)
[2020-08-20 06:12] LABS: CALCIUM 9.2 MG/DL (8.5-10.1)
[2020-08-20 06:13] LABS: GLUCOSE 128 MG/DL (70-105)
[2020-08-20 06:14] LABS: TOTAL PROTEIN 7.2 GM/DL (6.4-8.2)
[2020-08-20 06:15] LABS: BILIRUBIN,TOTAL 1.5 MG/DL (0.1-1.0); CARBON DIOXIDE 23 MMOL/L (21-32)
[2020-08-20] MEDS: inSUlin ASPART (NovoLOG) 1 UNIT/0.01 ML (CHARGE PER UNIT) SC SCH (06:15)
[2020-08-20 06:17] LABS: ALKALINE PHOSPHATASE 94 U/L (40-136); CREATININE SERUM 0.67 MG/DL (0.60-1.30); GFR ESTIMATED > 60
[2020-08-20 06:18] LABS: BUN/CREATININE RATIO 9
[2020-08-20 06:20] LABS: ALANINE AMINOTRANSFERASE 28 U/L (0-55)
--- NOTE | 2020-08-20 06:31 | Progress Note - Hospitalist ---
Subjective HPI/CC On Admission Date Seen by Provider: Aug 20, 2020 Time Seen by Provider: 09:30 Chief complaint: Abdominal pain post cholecystectomy History present illness: This a 50-year-old white male who presented to the ER after abdominal pain increased with fever. Patient had an uneventful cholecystectomy by Dr. Bradshaw and assessment and CT scan showed a fluid collection in the post cholecystectomy region. HIDA scan obtained and will await those results. Currently he denies any pain and his blood pressure and blood sugar seem to be stable. Subjective/Events-last exam Patient ready for discharge Objective Exam Vital Signs Vital Signs Date Time Temp Pulse Resp B/P (MAP) Pulse Ox O2 Delivery O2 Flow Rate FiO2 08/20/20 07:33 36.2 61 18 144/80 (101) 95 Room Air Capillary Refill : Less Than 3 Seconds General Appearance: No Apparent Distress Results/Procedures Lab Laboratory Tests 08/20/20 05:40 Patient resulted labs reviewed. Assessment/Plan Assessment and Plan Assess & Plan/Chief Complaint Assessment: Abdominal pain status post cholecystectomy Diabetes mellitus Hypertension Smoker Pain control Monitor blood pressure Monitor blood sugar 08/19/2020: Possible CT-guided drainage Monitor labs Monitor blood pressure Monitor sugar 08/20/2020: Discharge home Diagnosis/Problems Diagnosis/Problems (1) POST CHOLECYSTECTOMY INTRA-HEPATIC FLUID RADHA TAN DO Aug 20, 2020 06:31
[2020-08-20 07:33] VITALS: BP 144/80
[2020-08-20] MEDS: PANTOPRAZOLE 40 MG (PROTONIX) VIAL IV SCH (09:30)
== END 2020-08-20 10:03 | disposition home or self-care (01) ==
LOC: EDUNIT# 00:17 → ER 00:18 → 4TH 03:00 → UNDOADMOB 03:00 → 4TH 04:35 → UNDODISOB 08-20 10:00
PROVIDERS: ADMIT Surgery; ATTEND Surgery
DX: K91.89 Other postprocedural complications and disorders of digestive system (principal); G89.18 Other acute postprocedural pain; I10 Essential (primary) hypertension; G89.29 Other chronic pain; M54.9 Dorsalgia, unspecified; E66.9 Obesity, unspecified; E11.65 Type 2 diabetes mellitus with hyperglycemia; F32.9 Major depressive disorder, single episode, unspecified; F17.210 Nicotine dependence, cigarettes, uncomplicated; Z79.891 Long term (current) use of opiate analgesic; Z79.84 Long term (current) use of oral hypoglycemic drugs; Z90.49 Acquired absence of other specified parts of digestive tract; Z79.899 Other long term (current) drug therapy
CPT/HCPCS: 74177; 78226; 80053 ×3; 81000; 82150; 82947 ×2; 83690; 85025 ×3; 85049; 93041; 94664; 99284; A9537; G0378; 36415

== ENCOUNTER 2020-09-08 16:42 | Emergency (ER) | payer OTHER ==
[~2020-09-08] VITALS: Ht 170 cm; Wt 92.0 kg
[~2020-09-08 16:42] MED LIST changes: +CIPR-225 PO; +IBUP-2473 PO; +METR500T PO
[2020-09-08] MEDS ORDERED: NS IV 1000 ML 1,000 ML IV SCH (17:15)
[2020-09-08 17:20] LABS: CHLORIDE 98 MMOL/L (98-107); POTASSIUM 3.9 MMOL/L (3.6-5.0); SODIUM 136 MMOL/L (135-145)
[2020-09-08 17:21] LABS: CALCIUM 9.5 MG/DL (8.5-10.1); GLUCOSE 352 MG/DL (70-105)
[2020-09-08 17:23] LABS: CARBON DIOXIDE 23 MMOL/L (21-32)
[2020-09-08 17:25] LABS: CREATININE SERUM 0.84 MG/DL (0.60-1.30); GFR ESTIMATED > 60
[2020-09-08 17:26] LABS: BILIRUBIN,URINE NEGATIVE (NEGATIVE); CLARITY,URINE CLEAR; COLOR,URINE YELLOW; GLUCOSE, URINE (UA) 3+ (NEGATIVE); KETONES,URINE NEGATIVE (NEGATIVE); LEUKOCYTE ESTERASE ,URINE NEGATIVE (NEGATIVE); NITRITE,URINE NEGATIVE (NEGATIVE); PH,URINE 6.5 (5-9); PROTEIN,URINE 2+ (NEGATIVE)
[2020-09-08 17:26] LABS: BUN/CREATININE RATIO 10
[2020-09-08 17:32] LABS: BACTERIA,URINE TRACE /HPF; RBC,URINE RARE /HPF; SQUAMOUS EPITHELIAL CELL,UR RARE /HPF; WBC,URINE RARE /HPF
--- NOTE | 2020-09-08 17:50 | ED General ---
General Chief Complaint: Glucose Problems Stated Complaint: HIGH BLOOD SUGAR Nursing Triage Note: PT ARRIVES TO ER WITH C/O HIGH BLOOD SUGAR. PT WAS RECENTLY DIAGNOSED WITH DM TYPE 2 AND IS SUPPOSESD TO TAKE METFORMIN BUT RECENTLY HAD A ADARSH AND HERNIA REPAIR SO HAS NOT STARTED METFORMIN YET. PT STATES BLOOD SUGAR AT HOME WAS 400 Source of Information: Patient Exam Limitations: No Limitations History of Present Illness Date Seen by Provider: Sep 08, 2020 Time Seen by Provider: 17:08 Initial Comments This 50-year-old gentleman presents to the emergency room with concerns about high blood sugar. He has had blood sugar over 400. He was recently diagnosed with diabetes. About a month ago he had surgery for hernia repair and cholecystectomy. He was instructed to not start Metformin immediately after surgery but he is unsure when he should start it. He is therefore not taking any medications for his diabetes. He is not feeling ill in any way. Allergies and Home Medications Allergies Coded Allergies: No Allergy Information Available (Unverified , 08/08/20) Home Medications Ciprofloxacin HCl 500 Mg Tablet, 500 MG PO BID Prescribed by: CALLI GODINEZ on 08/19/20 1607 Hydrocodone/Acetaminophen 1 Each Tablet, 1 EACH PO Q4H PRN for PAIN-MODERATE (5- 7), (Reported) Ibuprofen 200 Mg Tablet, 600 MG PO Q6H PRN for PAIN-MILD (1-4), (Reported) TAKES 3 (200MG) TABLETS Metronidazole 500 Mg Tablet, 500 MG PO BID Prescribed by: CALLI GODINEZ on 08/19/20 1607 Sertraline HCl 100 Mg Tablet, 100 MG PO HS, (Reported) Tramadol HCl 50 Mg Tablet, 50-100 MG PO Q6H Prescribed by: CALLI GODINEZ on 08/19/20 1607 Patient Home Medication List Home Medication List Reviewed: Yes Review of Systems Review of Systems Constitutional: no symptoms reported EENTM: no symptoms reported Respiratory: no symptoms reported Cardiovascular: no symptoms reported Gastrointestinal: see HPI Genitourinary: no symptoms reported Musculoskeletal: no symptoms reported Skin: no symptoms reported Psychiatric/Neurological: No Symptoms Reported Hematologic/Lymphatic: No Symptoms Reported Immunological/Allergic: no symptoms reported Endocrine: High blood sugars Past Lebhypq-Nigfhs-Athmuj Hx Patient Social History Tobacco Use?: Yes Tobacco type used: Cigarettes Smoking Status: Current Everyday Smoker Use of E-Cig and/or Vaping dev: No Substance use?: No Alcohol Use?: No Pt feels they are or have been: No Immunizations Up To Date First/Initial COVID19 Vaccinat: JUNE 2020 Second COVID19 Vaccination Gustavo: JUNE 2020 Seasonal Allergies Seasonal Allergies: No Past Medical History Surgeries: Yes (LAP ADARSH AND UMBILICAL HERNIA REPAIR 08/08/[address] GODINEZ) Abdominal, Gallbladder Respiratory: No Currently Using CPAP: No Currently Using BIPAP: No Cardiac: Yes (NOT STARTED MEDICATIONS YET) Hypertension Neurological: No ("brain is small for age") Genitourinary: No Gastrointestinal: Yes (S/P ADARSH & UMBILICAL HERNIA REPAIR 08/08/20) Abdominal Hernia, Gall Bladder Disease Musculoskeletal: Yes (bone spurs in back) Chronic Back Pain Endocrine: Yes (OBESITY; PRESCRIBED MEDS FOR DM, BUT HAS NOT STARTED THEM YET) Diabetes, Non-Insulin dep HEENT: Yes Hearing Impairment: Hard of Hearing, Bilateral Hearing Aide Cancer: No Psychosocial: Yes Depression Integumentary: No Blood Disorders: No Family Medical History No Pertinent Family Hx Physical Exam Vital Signs Vital Signs - First Documented 09/08/20 09/08/20 16:52 18:00 Temp 36.2 Pulse 82 Resp 18 B/P (MAP) 150/96 (114) Pulse Ox 98 Capillary Refill : Less Than 3 Seconds Height, Weight, BMI Height: '" Weight: lbs. oz. kg; 31.00 BMI Method: General Appearance: No Apparent Distress, WD/WN HEENT: PERRL/EOMI, Normal ENT Inspection Neck: Normal Inspection Respiratory: Lungs Clear, Normal Breath Sounds, No Respiratory Distress Cardiovascular: Regular Rate, Rhythm, No Edema, No Murmur Gastrointestinal: Normal Bowel Sounds, Non Tender, Soft Extremity: Normal Inspection, No Pedal Edema Neurologic/Psychiatric: Alert, Oriented x3, No Motor/Sensory Deficits, Normal Mood/Affect Skin: Normal Color, Warm/Dry Progress/Results/Core Measures Suspected Sepsis SIRS Temperature: Pulse: 82 Respiratory Rate: 18 Blood Pressure 150 /96 Mean: 114 Laboratory Tests 09/08/20 16:57: Creatinine 0.84 Results/Orders Lab Results Laboratory Tests Test 09/08/20 16:50 09/08/20 16:57 09/08/20 17:15 Range/Units Glucometer 366 H 70-110 MG/DL Sodium Level 136 135-145 MMOL/L Potassium Level 3.9 3.6-5.0 MMOL/L Chloride Level 98 98-107 MMOL/L Carbon Dioxide Level 23 21-32 MMOL/L Anion Gap 15 H 5-14 MMOL/L Blood Urea Nitrogen 8 7-18 MG/DL Creatinine 0.84 0.60-1.30 MG/DL Estimat Glomerular Filtration Rate > 60 BUN/Creatinine Ratio 10 Glucose Level 352 H 70-105 MG/DL Calcium Level 9.5 8.5-10.1 MG/DL Urine Color YELLOW Urine Clarity CLEAR Urine pH 6.5 5-9 Urine Specific [place] 1.015 L 1.016-1.022 Urine Protein 2+ H NEGATIVE Urine Glucose (UA) 3+ H NEGATIVE Urine Ketones NEGATIVE NEGATIVE Urine Nitrite NEGATIVE NEGATIVE Urine Bilirubin NEGATIVE NEGATIVE Urine Urobilinogen 2.0 < = 1.0 MG/DL Urine Leukocyte Esterase NEGATIVE NEGATIVE Urine RBC (Auto) TRACE-I NEGATIVE Urine RBC RARE /HPF Urine WBC RARE /HPF Urine Squamous Epithelial Cells RARE /HPF Urine Crystals NONE /LPF Urine Bacteria TRACE /HPF Urine Casts NONE /LPF Urine Mucus NEGATIVE /LPF Urine Culture Indicated NO My Orders Orders - MIGDALIA RAMIREZ MD Basic Metabolic Panel (09/08/20 17:08) Accucheck Stat ONCE (09/08/20 17:08) Ed Iv/Invasive Line Start (09/08/20 17:08) Monitor-Rhythm Ecg Trace Only (09/08/20 17:08) Ua Culture If Indicated (09/08/20 17:12) Ns Iv 1000 Ml (Sodium Chloride 0.9%) (09/08/20 17:15) Vital Signs/I&O 09/08/20 09/08/20 16:52 18:00 Temp 36.2 36.2 Pulse 82 84 Resp 18 18 B/P (MAP) 150/96 (114) 150/96 (114) Pulse Ox 98 Capillary Refill : Less Than 3 Seconds Blood Pressure Mean: 114 Progress Note : Progress Note Labs were reviewed. Blood sugar was 352. Renal function was normal. A liter of IV normal saline was infused to help drive down the blood sugars. Patient was instructed to start his Metformin and eat a low carbohydrate low sugar diet with a low glycemic index. Education was provided. See discharge instructions. Departure Impression Primary Impression: Hyperglycemia Additional Impression: Type 2 diabetes mellitus Qualified Codes: E11.65 - Type 2 diabetes mellitus with hyperglycemia Disposition: HOME, SELF-CARE Condition: Improved Departure-Patient Inst. Decision time for Depature: 17:48 Referrals: RYLAN GLASGOW MD (PCP/Family) Primary Care Physician Patient Instructions: Type 2 Diabetes, Diabetic Meal Planning Add. Discharge Instructions: Drink plenty of water. Avoid foods and beverages high in sugar. Select foods that have a low glycemic index. Monitor your blood sugars fasting in the morning when you wake up and 2 hours after a meal each day. Record these blood sugars and bring them with you to your follow-up appointment with your doctor. Please schedule an appointment with your primary care physician as soon as possible. Start your Metformin this evening and continue as prescribed. Call with questions or concerns. Return to ER if you have worsening symptoms. All discharge instructions reviewed with patient and/or family. Voiced understanding. Copy Copies To 1: RYLAN GLASGOW MD, JOSHUA T MD Sep 08, 2020 17:50
[2020-09-08 18:00] VITALS: BP 150/96
== END 2020-09-08 18:00 | disposition home or self-care (01) ==
LOC: EDUNIT# 16:42 → ER 16:45
DX: E11.65 Type 2 diabetes mellitus with hyperglycemia (principal); F32.9 Major depressive disorder, single episode, unspecified; E66.9 Obesity, unspecified; I10 Essential (primary) hypertension; G89.29 Other chronic pain; M54.9 Dorsalgia, unspecified; F17.210 Nicotine dependence, cigarettes, uncomplicated; Z68.31 Body mass index [BMI] 31.0-31.9, adult; Z79.899 Other long term (current) drug therapy; Z79.891 Long term (current) use of opiate analgesic
CPT/HCPCS: 36415; 80048; 81000; 82947; 93041

== ENCOUNTER 2020-10-17 05:28 | Outpatient (RCR) | payer OTHER ==
[~2020-10-17] VITALS: Ht 172.7 cm; Wt 92.6 kg
[~2020-10-17 05:28] MED LIST changes: +FOLI0.4T6 PO; +METF-399 PO
== END 2020-10-17 10:49 | disposition home or self-care (01) ==
LOC: PREOP 05:28
PROVIDERS: ATTEND Surgery
DX: Z01.818 Encounter for other preprocedural examination (principal); R12 Heartburn; Z20.822 Contact with and (suspected) exposure to COVID-19
CPT/HCPCS: 87635

== ENCOUNTER 2020-10-21 06:56 | Day surgery (SDC) | payer OTHER ==
[~2020-10-21] VITALS: Ht 172.7 cm; Wt 92.6 kg
[2020-10-21] MEDS ORDERED: LACTATED RINGERS 1,000 ML IV STA (07:09)
[2020-10-21] MEDS ORDERED: PROPOFOL INJECTION 50 ML IV ONE ×2 (07:11→08:23)
[2020-10-21] MEDS ORDERED: MIDAZOLAM 2 MG/2 ML (VERSED) VIAL ONE (07:11)
--- OUTSIDE RECORDS SUMMARY | 2020-10-21 07:11 | XMS REPORT | Encounter Summary ---
Author Author [facility] Organization [facility] Address Unknown Phone Unavailable Care Team Providers Care Energy Professional Name Role Phone Anders Stevenson MD PCP Reason for Referral * Laboratory Services (Routine) Referred By Contact Referred To Contact Status Reason Specialty Diagnoses / Procedures Blaire Kwon MD [address] [facility] [address] [place] [address] [facility] [address] [id number] [place] [address] Authorized Lab Diagnoses Hereditary stomatocytosis (HCC) P rocedures HEMOCHROMATOSIS HFE GENE ANAL Electronically signed by Blaire Kwon MD at Encounter Details Care Team Description Date Type Department Blaire Kwon MD [address] [facility] [address] [place] [address] Hereditary stomatocytosis (HCC) (Primary Dx) 09/13/2020 Orders Only Hematology: [facility] [address] [place] [address] Social History Date Tobacco Use Types Packs/Day Years Used Current Every Day Smoker Smokeless Tobacco: Never Used Comments Alcohol Use Standard Drinks/Week History of alcohol in the past but none currently Not Currently 0 (1 standard drink = 0.6 o z pure alcohol) Sex Assigned at Date Recorded Male 07/26/2020 12:49 PM CDT Date Recorded COVID-19 Exposure Response 09/06/2020 1:06 PM CDT In the last month, have you been in contact with No / Unsure someone who was confirmed or suspected to have Coronavirus / COVID-19? documented as of this encounter Plan of Treatment Order Schedule Name Type Priority Associated Diag noses Expected: 09/13/2020 (Approximate), Expi res: 09/13/2021 HEMOCHROMATOSIS HFE GENE Lab Routine Hered itary stomatocytosis ANAL (HCC) documented as of this encounter Visit Diagnoses Diagnosis Hereditary stomatocytosis (HCC) - Prima ry Other specified hereditary hemolytic an emias documented in this encounter
--- OUTSIDE RECORDS SUMMARY | 2020-10-21 07:11 | XMS REPORT | Encounter Summary ---
Author Author [facility] Organization [facility] Address Unknown Phone Unavailable Care Team Providers Care Ordained Minister Name Role Phone Anders Stevenson MD PCP Encounter Details Care Team Description Date Type Department 09/06/2020 Travel Social History Date Tobacco Use Types Packs/Day Years Used Never Assessed Sex Assigned at Date Recorded Male 07/26/2020 12:49 PM CDT Date Recorded COVID-19 Exposure Response 09/06/2020 1:06 PM CDT In the last month, have you been in contact with No / Unsure someone who was confirmed or suspected to have Coronavirus / COVID-19? documented as of this encounter Plan of Treatment Not on filedocumented as of this encounter Visit Diagnoses Not on filedocumented in this encounter
--- OUTSIDE RECORDS SUMMARY | 2020-10-21 07:11 | XMS REPORT | Encounter Summary ---
Author Author [facility] Organization [facility] Address Unknown Phone Unavailable Care Team Providers Care Honing Job Setter Name Role Phone Anders Stevenson MD PCP Reason for Referral * Consult, Test & Treat (Routine) Referred By Contact Referred To Contact Status Reason Specialty Diagnoses / Procedures Blaire Kwon MD [address] [place] [address] Cc-Ww Bmt Exm [address] [facility]. [address] [place], [place] Canceled Specialty Services Oncology Diagnoses Required Hereditary stomatocytosis (HCC) Loss of balance Biliary calculus of other site without obstruction Hepatosplenomegaly Answer Question 1 Month When is the Referral Requested New Patient - Smoking cessation Which Type of Appointment would you lik e scheduled? No Has the Patient had a Bone Marrow Trans plant? Comments Smoking cessation Electronically signed by Blaire Kwon MD at * Consult, Test & Treat (Routine) Referred By Contact Referred To Contact Status Reason Specialty Diagnoses / Procedures Blaire Kwon MD [address] [place] [address] Kriss Akers MD [address] [place] [id number] New Request Specialty Services Diagnoses Required Hereditary stomatocytosis (HCC) Loss of balance Biliary calculus of other site without obstruction Hepatosplenomegaly Scheduling Instructions Contact Phone Numbers for each area if questions arise: General: [phone] Epilepsy: [phone] Multiple Sclerosis: Parkinson's: [facility] Memory [facility]: Stroke & Neuromuscular: [place]: [phone] Comments Evaluation for falls/balance issues Electronically signed by Blaire Kwon MD at * Radiology Services (Routine) Referred By Contact Referred To Contact Status Reason Specialty Diagnoses / Procedures Blaire Kwon MD [address] [address] New Request Radiology Diagnoses Hereditary stomatocytosis (HCC) Loss of balance Biliary calculus of other site without obstruction Hepatosplenomegaly P rocedures MRI MRCP Electronically signed by Blaire Kwon MD at Reason for Visit * Reason Comments Heme/Onc Care Encounter Details Care Team Description Date Type Department Blaire Kwon MD [address] [address] [phone] Hereditary stomatocytosis (HCC) (Primary Dx); Loss of balance; Biliary calculus of other site without obstruction; Type 2 diabetes mellitus with hyperglycemia, unspecified whether director long term care insulin use (HCC); Hepatosplenomegaly 10/09/2020 Office Visit Hematology: I[facility] Benavides [facility], [facility] [address] [place] [address]. [address] [place] [address] Social History Date Tobacco Use Types Packs/Day Years Used Current Every Day Smoker Smokeless Tobacco: Never Used Comments Alcohol Use Standard Drinks/Week History of alcohol in the past but none currently Not Currently 0 (1 standard drink = 0.6 o z pure alcohol) Sex Assigned at Date Recorded Male 07/26/2020 12:49 PM CDT documented as of this encounter Patient Instructions * Patient Instructions* Monse Landeros RN - 10/09/2020 11:10 AM CDT Your Care Team Dr. Blaire Kwon Inspector And Adjuster [employer] Layla Moeller, [employer] Hematology Nurse Practitioner Clinical Nurse Coordinators (CNC's) Shawn Carvalho [phone] AARON Brown: [phone] Messages left on nurses' line are checked Wednesday-Wednesday 8:00 AM - 3:30PM Evening (after 3:30PM), weekend and holiday on-call [phone] For urgent needs after hours, please ask for the oncologist on-call to be pages. For urgent needs during business hours, please ask for Dr. Kwon' nurse, to be paged. Notes: -Allow one business week for our office to complete any requested paperwork (FML A, etc.) -My Chart is the preferred communication method. Please allow one business day f or questions to be answered. -Clinic policy for medication refills: All prescriptions need to be called in 24 hours in advance and will be answe red within 1 business day. Multiple calls and messages will delay in refilling medication as it limits our ability to respond appropriately. Do not go to the pharmacy without being sure your prescription is there and ready for pickup. documented in this encounter Progress Notes * Blaire Kwon MD - 10/09/2020 11:10 AM CDT Date of Service: 10/09/2020 Subjective: Reason for Visit: Heme/Onc Care Rajan Rankin is a 50 y.o. male. 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 He is still smoking and interested in smoking cessation. Problem Cholelithiasis Hereditary Stomatocytosis (Hcc) He had an arm injury in February 2020, some routine blood work was done, he was noted to have macrocytosis, with mild thrombocytopenia, 10 Jul 2020 peripheral b lood smear showed increased stomatocytes, he had a CBC showing white count of 8. 3, hemoglobin 13.8, platelet count 133, MCV of 108, reticulocyte count 6.9%, cre atinine normal, T bili of 1.8-2.3, T bili of 0.8, rest of liver panel normal, DA T negative reportedly, haptoglobin low reportedly [address] abdomen and pelvis showed hepatosplenomegaly with the liver and spleen both 21 cm, gallstones, 2.2 cm eggshell calcification near the duodenum, consider MRCP Referral to hematology at September 2020, he has never had a problem with hemolyti c anemia or known hereditary stomatocytosis prior to this and no known family hi story of anemia or blood disorders, he has had gallstones with cholecystectomy d one at time of umbilical hernia repair and noted hepatosplenomegaly with history of alcohol in the past but none currently, he does smoke cigarettes and has no children or plans to have children at this time, labs showed ferritin of 686, ir on saturation of 48%, folate of 8.9, B12 of 855 with normal methylmalonic acid D AT negative, white count normal, hemoglobin 15.6, platelet count 102, peripheral smear review with 10 to 20% stomatocytes, SPEP showed polyclonal gammopathy, LDH was normal at 172, reticulocyte count was elevated at 5.2%, haptoglobin was less than 30, TSH was 3.5, 18 September 2020 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 Musculoskeletal: Positive for gait problem. Allergic/Immunologic: Negative for immunocompromised state. Neurological: Negative for weakness. Hematological: Negative for adenopathy. Medical History: Diagnosis Date Cholelithiasis Depression Diabetes mellitus (HCC) Hearing loss Hepatosplenomegaly Hereditary stomatocytosis (HCC) Hypertension Loss of balance Osteoarthritis Thrombocytopenia (HCC) Surgical History: Procedure Laterality Date CHOLECYSTECTOMY UMBILICAL HERNIA REPAIR Family History Problem Relation Age of Onset Liver Disease Father Cancer Other Mom with colon cancer at 56, aunt with colon cancer at 54, also lung cancer in the family Social History Socioeconomic History Marital status: Single Spouse name: Not on file Number of children: Not on file Years of education: Not on file Highest education level: Not on file Occupational History Not on file Tobacco Use Smoking status: Current Every Day Smoker Smokeless tobacco: Never Used Substance and Sexual Activity Alcohol use: Not Currently Comment: History of alcohol in the past but none currently Drug use: Not on file Sexual activity: Not on file Other Topics Concern Not on file Social History Narrative Lives in [facility], applying for disability, his fiance is Ms. Jessica Melvin No Known Allergies Objective: folic acid (FOLVITE) 1 mg tablet Take 1 mg by mouth daily. metFORMIN (GLUCOPHAGE) 500 mg tablet Take 500 mg by mouth twice daily with m elodia. Indications: Currently on hold sertraline (ZOLOFT) 100 mg tablet Take 100 mg by mouth daily. Vitals: 10/09/20 1105 PainSc: Zero There is no height or weight on file to calculate BMI. Pain Score: Zero Pain Addressed: N/A Patient Evaluated for a Clinical Trial: No treatment clinical trial available fo r this patient. Eastern Cooperative Oncology Group performance status is 0, Fully active, able t o carry on all pre-disease performance without restriction.. Physical Exam Vitals (as applicable) and nursing note reviewed. Constitutional: Appearance: Normal appearance. He is not ill-appearing. Comments: His fiance was on the call as well HENT: Head: Normocephalic and atraumatic. Pulmonary: Effort: Pulmonary effort is normal. Neurological: Mental Status: He is alert and oriented to person, place, and time. Mental st atus is at baseline. Psychiatric: Mood and Affect: Mood normal. Behavior: Behavior normal. MDM of high complexity based on multiple diagnoses and at least 1+ chronic ill ness with severe exacerbations, progression, or side effects of treatment and or chronic illness that may pose a threat to life or bodily function, including re viewing external notes and results of labs and radiology testing, ordering labs and radiology test as needed and obtaining history from an independent historian as applicable, with high risk of morbidity from additional testing or treatment .Total time 40 minutes spent on this visit including preparation time, obtaining and reviewing history, performing exam as applicable, counseling and educating patient and family members as needed, ordering medications and tests and procedu res as needed, referring and communicating with other healthcare professionals a s needed, documenting clinical information in the electronic record, interpretin g lab and radiology results and care coordination with clinic staff. Assessment and Plan: Cholelithiasis Gallstones can be associated with hereditary stomatocytosis, of note he has had a cholecystectomy with umbilical hernia repair Loss of balance With some falls recently, will place neurology consult per request Hepatosplenomegaly Splenomegaly from hereditary stomatocytosis could be contributing to mild thromb ocytopenia, however he does have elevated iron levels and HFE gene testing did s how a single H63D mutation, typically associated with carrier status though his hereditary stomatocytosis could be leading to some increased iron deposition as well, will check an MRI, MRCP was recommended to assess for this 2.2 cm eggshell calcification near his duodenum noted on recent CT scan earlier this year, will get the MRCP, if they can comment on iron deposition in the liver that would be very helpful as well, at [address] [address], and we will follow-up afterwards Hereditary stomatocytosis (HCC) Mr. Rankin is a 50-year-old man with hereditary stomatocytosis diagnosed on routin e blood work in 2020 incidentally noted, he has no history of thrombosis or blee ding disorder, does have mild thrombocytopenia that may be related to splenomega ly, and chronic low level hemolysis well compensated with normal hemoglobin, how ever HFE gene testing did show H63D single mutation with a ferritin of 686 and i [place]an [place] saturation of 48% in September 2020. 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, currently he continues 1 mg daily Liver MRI regarding the eggshell calcifications noted on May 2020 CT abdome n and pelvis near the duodenum is pending, as well to potentially assess for iro n deposition Recommend obtaining colonoscopy due to family history of colon cancer in his mother at the age of 56, consult placed and this is scheduled for the near futur e Recommend complete smoking cessation, a smoking cessation consultation was mina hartman per his request He does avoid alcohol He does not plan on having children but family members could be tested as nee ded for hereditary stomatocytosis We could consider osmotic fragility test or genetic testing for hereditary st omatocytosis though he is not interested at this time and without need for treat ment with mild disease and no plans to have children I do think genetic testing is necessary at this time Splenectomy can be considered as a last resort for ongoing severe hemolysis b ut he certainly does not meet criteria for that at this time Recommended abdominal protection related to splenomegaly, his bilirubin is li wilfrido elevated to hemolytic anemia from the stomatocytosis documented in this encounter Plan of Treatment Order Schedule Name Type Priority Associated Diag noses Expected: 04/11/2021 (Approximate), Expi res: 10/09/2021 CBC AND DIFF Lab Routine Hereditary stom atocytosis (HCC) Loss of balance Biliary calculus of other site without obstruction Hepatosplenomegaly Expected: 10/09/2020 (Approximate), Expi res: 10/09/2021 MRI MRCP Imaging Routine Hereditary stom atocytosis (HCC) Loss of balance Biliary calculus of other site without obstruction Hepatosplenomegaly Order Schedule Name Type Priority Associated Diag noses Ordered: 10/09/2020 AMB REFERRAL TO NEUROLOGY Outpatient Routine Here ditary stomatocytosis Referral (HCC) Loss of balance Biliary calculus of other site without obstruction Hepatosplenomegaly Ordered: 10/09/2020 AMB REFERRAL TO BMT Outpatient Routine Hereditary stomatocytosis [employer]SH[employer] Referral (HCC) Loss of balance Biliary calculus of other site without obstruction Hepatosplenomegaly documented as of this encounter Visit Diagnoses Diagnosis Hereditary stomatocytosis (HCC) - Prima ry Other specified hereditary hemolytic an emias Loss of balance Other symptoms involving nervous and mu sculoskeletal systems Biliary calculus of other site without obstruction Type 2 diabetes mellitus with hyperglyc emia, unspecified whether director long term care insulin use (HCC) Hepatosplenomegaly Other chronic nonalcoholic liver diseas e * Assessment & Plan Note - Blaire Kwon MD - 10/10/2020 11:16 AM CDT Associated Problem(s): Hereditary stomatocytosis (HCC) Mr. Rankin is a 50-year-old man with hereditary stomatocytosis diagnosed on routin e blood work in 2020 incidentally noted, he has no history of thrombosis or blee ding disorder, does have mild thrombocytopenia that may be related to splenomega ly, and chronic low level hemolysis well compensated with normal hemoglobin, how ever HFE gene testing did show H63D single mutation with a ferritin of 686 and i juan [place] saturation of 48% in September 2020. 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, currently he continues 1 mg daily Liver MRI regarding the eggshell calcifications noted on May 2020 CT abdome n and pelvis near the duodenum is pending, as well to potentially assess for iro n deposition Recommend obtaining colonoscopy due to family history of colon cancer in his mother at the age of 56, consult placed and this is scheduled for the near futur e Recommend complete smoking cessation, a smoking cessation consultation was mina hartman per his request He does avoid alcohol He does not plan on having children but family members could be tested as nee ded for hereditary stomatocytosis We could consider osmotic fragility test or genetic testing for hereditary st omatocytosis though he is not interested at this time and without need for treat ment with mild disease and no plans to have children I do think genetic testing is necessary at this time Splenectomy can be considered as a last resort for ongoing severe hemolysis b ut he certainly does not meet criteria for that at this time Recommended abdominal protection related to splenomegaly, his bilirubin is li wilfrido elevated to hemolytic anemia from the stomatocytosis * Assessment & Plan Note - Blaire Kwon MD - 10/10/2020 11:11 AM CDT Associated Problem(s): Hepatosplenomegaly Splenomegaly from hereditary stomatocytosis could be contributing to mild thromb ocytopenia, however he does have elevated iron levels and HFE gene testing did s how a single H63D mutation, typically associated with carrier status though his hereditary stomatocytosis could be leading to some increased iron deposition as well, will check an MRI, MRCP was recommended to assess for this 2.2 cm eggshell calcification near his duodenum noted on recent CT scan earlier this year, will get the MRCP, if they can comment on iron deposition in the liver that would be very helpful as well, at [place] [address], and we will follow-up afterwards * Assessment & Plan Note - Blaire Kwon MD - 10/10/2020 11:11 AM CDT Associated Problem(s): Loss of balance With some falls recently, will place neurology consult per request * Assessment & Plan Note - Blaire Kwon MD - 10/10/2020 11:10 AM CDT Associated Problem(s): Cholelithiasis Gallstones can be associated with hereditary stomatocytosis, of note he has had a cholecystectomy with umbilical hernia repair documented in this encounter Discontinued Medications Start Date End Date Medication Sig Discontinue Reason 10/10/2020 ciprofloxacin (CIPRO) 500 Take 500 mg mg tablet by mouth twice daily. 10/10/2020 ibuprofen (ADVIL) 200 mg Take 200 mg tablet by mouth every 6 hours as needed for Pain. Take with food. 10/10/2020 metroNIDAZOLE (FLAGYL) Take 500 mg 500 mg tablet by mouth three times daily. Take with food. Do not drink alcohol while on metronidazol e. 10/10/2020 multivitamin with Take by minerals (MULTIVITAMIN & mouth. He MINERAL FORMULA PO) takes an occasional multivitamin 10/10/2020 traMADoL (ULTRAM) 50 mg Take 50 mg tablet by mouth every 8 hours as needed for Pain. documented as of this encounter Historical Medications * This list may reflect changes made after this encounter. Start Date End Date Medication Sig Dispensed Refills folic acid (FOLVITE) 1 mg Take 1 mg by 0 tablet mouth daily. added in this encounter
--- OUTSIDE RECORDS SUMMARY | 2020-10-21 07:11 | XMS REPORT | Encounter Summary ---
Author Author [facility] Organization [facility] Address Unknown Phone Unavailable Care Team Providers Care Sas Programmer Remote Name Role Phone Anders Stevenson MD PCP Reason for Referral * Consult, Test & Treat (Routine) Referred By Contact Referred To Contact Status Reason Specialty Diagnoses / Procedures Blaire Kwon MD [address] [place] [address] Liam Chow MD [address] [place] [address] New Request Specialty Services Diagnoses Required Hereditary stomatocytosis (HCC) Comments 50 yrs old. Screening Colonoscopy-Mom with colon ca at 56 yrs old. Electronically signed by Blaire Kwon MD at Reason for Visit * Reason Comments Heme/Onc Care * Consult, Test & Treat (Routine) Referred By Contact Referred To Contact Status Reason Specialty Diagnoses / Procedures Ludwin Barrientos MD [address] [facility] [place] [address] Cc - Ww Cl Exm/Proc Rm [address] [facility]. [place], [place] Authorized Oncology Encounter Details Care Team Description Date Type Department Blaire Kwon MD [address] [facility] [address] [facility] [address] [place] [address] [phone] Hereditary stomatocytosis (HCC) (Primary Dx); Type 2 diabetes mellitus with hyperglycemia, unspecified whether emt intermediate insulin use (HCC); Hepatosplenomegaly; Loss of balance; Biliary calculus of other site without obstruction 09/06/2020 Office Visit Hematology: [facility] [address] [facility] [facility] [place] [address] Social History Date Tobacco Use [...] / COVID-19? documented as of this encounter Last Filed Vital Signs Reading Time Taken Comments Vital Sign 135/80 09/06/2020 2:26 PM CDT Blood Pressure 95 09/06/2020 2:26 PM CDT Pulse 36.8 C (98.3 F) 09/06/2020 2:26 PM CDT Temperature 18 09/06/2020 2:26 PM CDT Respiratory Rate 97% 09/06/2020 2:26 PM CDT Oxygen Saturation - - Inhaled Oxygen Concentration 95.4 kg (210 lb 6.4 oz) 09/06/2020 2:26 PM CDT Weight 168.3 cm (5' 6.25") 09/06/2020 2:26 PM CDT Height 33.7 09/06/2020 2:26 PM CDT Body Mass Index documented in this encounter Patient Instructions * Patient Instructions* Carey Wallace, RN - 09/06/2020 2:20 PM CDT Your Care Team Dr. Blaire Kwon Private Branch Exchange Repairer Layla Moeller, [employer] HISTORY PROFESSOR Hematology Nurse Practitioner Clinical Nurse Coordinators (CNC's) Shawn Carvalho [phone] AARON Brown: [phone] Messages left on nurses' line are checked Wednesday-Wednesday 8:00 AM - 3:30PM Evening (after 3:30PM), weekend and holiday on-call [phone] For urgent needs after hours, please ask [...] Progress Notes * Blaire Kwon MD - 09/06/2020 2:20 PM CDT Date of Service: 09/06/2020 Subjective: Reason for Visit: Heme/Onc Care Rajan Rankin is a 50 y.o. male. 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 Problem Cholelithiasis Hereditary Stomatocytosis (Hcc) He had [...] or plans to have children at this time Hepatosplenomegaly Loss of Balance Diabetes Mellitus (Hcc) Review of Systems Constitutional: Positive for activity change, appetite change and fatigue. HENT: Positive for tinnitus. Eyes: Positive for pain and itching. Respiratory: Positive for apnea. Cardiovascular: Negative for chest pain. Gastrointestinal: Positive for abdominal pain. Musculoskeletal: Positive for back pain. Skin: Negative for rash. Neurological: Positive for dizziness, weakness, light-headedness and headaches. Psychiatric/Behavioral: Positive for agitation, behavioral problems, confusion, decreased concentration and sleep disturbance. The patient is nervous/anxious. Medical History: Diagnosis Date Cholelithiasis Depression Diabetes [...] on file Social History Narrative Lives in [facility], applying for disability, his fiance is Ms. Jessica Melvin No Known Allergies Objective: ciprofloxacin (CIPRO) 500 mg tablet Take 500 mg by mouth twice daily. ibuprofen (ADVIL) 200 mg tablet Take 200 mg by mouth every 6 hours as needed for Pain. Take with food. metFORMIN (GLUCOPHAGE) 500 mg tablet Take 500 mg by mouth twice daily with neha clifton. Indications: Currently on hold metroNIDAZOLE (FLAGYL) 500 mg tablet Take 500 mg by mouth three times daily. Take with food. Do not drink alcohol while on metronidazole. multivitamin with minerals (MULTIVITAMIN & MINERAL FORMULA PO) Take by mouth. He takes an occasional multivitamin sertraline (ZOLOFT) 100 mg tablet Take 100 mg by mouth daily. traMADoL (ULTRAM) 50 mg tablet Take 50 mg by mouth every 8 hours as needed f or Pain. Vitals: 09/06/20 1426 BP: 135/80 BP Source: Arm, Left Upper Patient Position: Sitting Pulse: 95 Resp: 18 Temp: 36.8 C (98.3 F) TempSrc: Oral SpO2: 97% Weight: 95.4 kg (210 lb 6.4 oz) Height: 168.3 cm (66.25") PainSc: Eight Body mass index is 33.7 kg/m. Pain Score: Eight Pain Addressed: Current regimen working to control pain. Patient Evaluated for a Clinical Trial: No treatment clinical trial available fo r this patient. Eastern Cooperative Oncology Group performance status is 1, Restricted in physic ally strenuous activity but ambulatory and able to carry out work of a light or sedentary nature, e.g., light house work, office work. Physical Exam Vitals and nursing note reviewed. Constitutional: Appearance: He is well-developed. He is not ill-appearing. Cardiovascular: Rate and Rhythm: Normal rate. Pulmonary: Effort: Pulmonary effort is normal. No respiratory distress. Abdominal: Palpations: Abdomen is soft. Tenderness: There is no abdominal tenderness. Comments: Hepatosplenomegaly several centimeters below costal margins Musculoskeletal: General: No swelling or tenderness. Cervical back: Normal range of motion. Lymphadenopathy: Cervical: No cervical adenopathy. Right cervical: No superficial or deep cervical adenopathy. Left cervical: No superficial or deep cervical adenopathy. Upper Body: Right upper body: No supraclavicular or axillary adenopathy. Left upper body: No supraclavicular or axillary adenopathy. Skin: General: Skin is warm and dry. Neurological: Mental Status: He is alert and oriented to person, place, and time. Mental st atus is at baseline. Psychiatric: Mood and Affect: Mood normal. Behavior: Behavior normal. Prior records obtained and reviewed as well as labs and radiology and patholog y reports as available, please see note for summary details. Total time 60 minut es for this visit and coordinating care. Estimated counseling and coordinating care time >35 minutes. Counseled pt regarding things discussed in A/P. Assessment and Plan: Cholelithiasis Gallstones can be associated with hereditary stomatocytosis, of note he has had a cholecystectomy with recent umbilical hernia repair Hepatosplenomegaly Splenomegaly from hereditary stomatocytosis could be contributing to mild thromb ocytopenia, defer work-up of hepatomegaly to primary care as needed Loss of balance I recommend he follow-up with primary care to discuss this further with evaluati on as needed Hereditary stomatocytosis (HCC) Mr. Rankin is a 50-year-old man with hereditary stomatocytosis diagnosed on routin e blood work earlier this year, he has no history of thrombosis or bleeding diso rder, does have mild thrombocytopenia that may be related to splenomegaly, and c hronic low level hemolysis well compensated with hemoglobin of 13.8 recently. 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 Defer MRCP eval to primary care based on the eggshell calcifications noted on May 2020 CT abdomen and pelvis near the duodenum Recommend obtaining colonoscopy due to family history of colon cancer in his mother at the age of 56, consult placed Recommend complete smoking cessation He does avoid alcohol He does not plan on having children but family members could be tested as nee ded for hereditary stomatocytosis We will also check ferritin and iron panel, hemoglobin electrophoresis, and D AT and hemolysis labs with CBC with peripheral smear review for confirmation her e, and call with lab results with follow-up as needed We could consider osmotic fragility test or [...] elevated to hemolytic anemia from the stomatocytosis Regarding hepatomegaly he can follow-up with primary care, currently not dereck ahmadi documented in this encounter Plan of Treatment Order Schedule Name Type Priority Associated Diag noses Ordered: 09/06/2020 AMB REFERRAL TO Outpatient Routine Hereditary sto matocytosis GASTROENTEROLOGY Referral (HCC) documented as of this encounter Results * DIRECT ANTIGLOBULIN TEST(ARNOLD) (09/06/2020 3:38 PM CDT) ARNOLD, Broad NEG [facility] Spectrum Remberto ABO/RH(D) B POS [facility] Specimen Midstream Performing Organization Address City/[facility]/ZIP Code P alejandro Number [facility] [address] [place] [address] * CBC AND DIFF (09/06/2020 3:37 PM CDT) White Blood 8.7 4.5 - 11.0 K/UL [facility] Cells RBC 4.14 (L) 4.4 - 5.5 M/UL [facility] Hemoglobin 15.6 13.5 - 16.5 GM/DL [facility] Hematocrit 44.1 40 - 50 % [facility] MCV 106.7 (H) 80 - 100 FL [facility] MCH 37.6 (H) 26 - 34 PG [facility] MCHC 35.3 32.0 - 36.0 G/DL [facility] RDW 14.0 11 - 15 % [facility] Platelet Count 102 (L) 150 - 400 K/UL [facility] MPV 9.7 7 - 11 FL [facility] Neutrophils 66 41 - 77 % [facility] Lymphocytes 24 24 - 44 % [facility] Monocytes 5 4 - 12 % [facility] Eosinophils 4 0 - 5 % [facility] Basophils 1 0 - 2 % [facility] Absolute 5.73 1.8 - 7.0 K/UL [facility] Neutrophil Count Absolute Lymph 2.10 1.0 - 4.8 K/UL [facility] Count Absolute 0.43 0 - 0.80 K/UL [facility] Monocyte Count Absolute 0.33 0 - 0.45 K/UL [facility] Eosinophil Count Absolute 0.08 0 - 0.20 K/UL [facility] Basophil Count Specimen Blood Performing Organization Address [facility]/ZIP Code P alejandro Number [facility] [address] [place] [address] * PERIPHERAL SMEAR (09/06/2020 3:37 PM CDT) Peripheral MACROCYTIC RED BLOOD CELLS [facility] B Smear WITH 10 TO 20% STOMATOCYTES AND NO INCREASE IN SCHISTOCYTES. MILD THROMBOCYTOPENIA. FINDINGS CONSISTENT WITH HISTORY OF HEREDITARY STOMATOCYTOSIS. Pathologist INTERPRETED BY ODILIA SIMMS [facility] Signature Mikael By the PATH SIGNATURE ABOVE, I attest that I have personally formulated the final interpretation expressed in this report and that the above diagnosis is based upon my examination of the slides and/or other material indicated in this report. Specimen Performing Organization Address [facility] Code P alejandro Number [facility] [address] [place] [address] * ELECTROPHORESIS-HEMOGLOBIN (09/06/2020 3:37 PM CDT) Hgb Elect SLIGHTLY ELEVATED [facility] Interpretation HEMOGLOBIN IS PRESENT WITH UNKNOWN CLINICAL SIGNIFICANCE HISTORY OF HEREDITARY STOMATOCYTOSIS AND LOW LEVEL CHRONIC HEMOLYSIS IS NOTED. Hgb A 96.0 94.5 - 98.5 % [facility] Hgb A2 2.2 1.5 - 3.5 % [facility] Hgb F 1.8 0 - 2 % [facility] Pathologist INTERPRETED BY BELLA GRIMALDO M.D. [facility] AB Signature By the PATH SIGNATURE ABOVE , I attest that I have personally formulated the final interpretation expressed in this report and that the above diagnosis is based upon my examination of the slides and/or other material indicated in this report. Specimen Performing Organization Address [facility] P alejandro Number [facility] [address] [place] [address] * IRON + BINDING CAPACITY + %SAT+ FERRITIN (09/06/2020 3:37 PM CDT) Pathologist [facility] Iron 141 50 - 185 MCG/DL [facility] Iron 292 270 - 380 MCG/DL [facility] Binding-TIBC % Saturation 48 (H) 28 - 42 % [facility] Ferritin 686 (H) 30 - 300 NG/ML [facility] Specimen Performing Organization Address [facility] P alejandro Number [facility] [address] [place] [address] * RETICULOCYTE COUNT (09/06/2020 3:37 PM CDT) Retic, 5.4 (H) 0.5 - 2.0 % [facility] Uncorrected Retic, 5.2 % [facility] Corrected Retic, Absolute 220.1 (H) 30 - 94 K/UL [facility] Specimen Performing Organization Address [facility] P alejandro Number [facility] [address] [place] [address] * LDH-LACTATE DEHYDROGENASE (09/06/2020 3:37 PM CDT) Lactate 172 100 - 210 U/L [facility] Dehydrogenase Specimen Blood Performing Organization Address [facility] P alejandro Number [facility] [address] [place] [address] * HAPTOGLOBIN (09/06/2020 3:37 PM CDT) Haptoglobin <30 16 - 200 MG/DL [facility] Specimen Blood Performing Organization Address [facility] P alejandro Number [facility] [address] [place] [address] * METHYLMALONIC ACID QUANT (09/06/2020 3:37 PM CDT) Methylmalonic 0.10 [facility] Acid Comment: Reference range: <=0.40 Unit: nmol/mL ADDITIONAL INFORMATION This test was developed and its performance characteristics determined by [facility] in a manner consistent with CLIA requirements. This test has not been cleared or approved by the U.S. Food and Drug Administration. [facility] Specimen Performing Organization Address [facility] P alejandro Number REFERENCE LAB REFERENCE LAB See results for address. * VITAMIN B12 (09/06/2020 3:37 PM CDT) Vitamin B12 855 180 - 914 PG/ML [facility] Specimen Performing Organization Address [facility] P alejandro Number [facility] [address] [place] [address] * FOLATE, SERUM (09/06/2020 3:37 PM CDT) Serum Folate 8.9 >3.9 NG/ML [facility] Specimen Blood Performing Organization Address [facility] Code P alejandro Number [facility] [address] [place] [address] * ELECTROPHORESIS-SERUM PROTEIN (09/06/2020 3:37 PM CDT) Total 8.2 (H) 6.0 - 8.0 G/DL [facility] Protein-SEP Albumin % 58.4 48 - 68 % [facility] Alpha 1 % 3.3 2 - 6 % [facility] Alpha 2 % 5.4 5 - 15 % [facility] Beta %,Serum 10.9 9 - 17 % [facility] Gamma % 22.0 (H) 9 - 21 % [facility] Interpretation POLYCLONAL GAMMOPATHY [facility] - SEP Pathologist INTERPRETED BY BELLA GRIMALDO M.D. [facility] AB Signature By the PATH SIGNATURE ABOVE , I attest that I have personally formulated the final interpretation expressed in this report and that the above diagnosis is based upon my examination of the slides and/or other material indicated in this report. Specimen Performing Organization Address City/State/ZIP Code P alejandro Number [facility] [address] [place] [address] * THYROID STIMULATING HORMONE-TSH (09/06/2020 3:37 PM CDT) TSH 3.51 0.35 - 5.00 MCU/ML [facility] Specimen Performing Organization Address City/[facility]/ZIP Code P alejandro Number [facility] [address] [place] [address] documented in this encounter Visit Diagnoses Diagnosis Hereditary stomatocytosis (HCC) - Prima ry Other specified hereditary hemolytic an emias Type 2 diabetes mellitus with hyperglyc emia, unspecified whether senior care insulin use (HCC) Hepatosplenomegaly Other chronic nonalcoholic liver diseas e Loss of balance Other symptoms involving nervous and mu sculoskeletal systems Biliary calculus of other site without obstruction * Assessment & Plan Note - Blaire Kwon MD - 09/09/2020 12:24 PM CDT Associated Problem(s): Hereditary stomatocytosis (HCC) Mr. Rankin is a 50-year-old man with hereditary stomatocytosis diagnosed on routin e blood work earlier this year, he has no history of thrombosis or bleeding diso rder, does have mild thrombocytopenia that may be related to splenomegaly, and c hronic low level hemolysis well compensated with hemoglobin of 13.8 recently. 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 Defer MRCP eval to primary care based on the eggshell calcifications noted on May 2020 CT abdomen and pelvis near the duodenum Recommend obtaining colonoscopy due to family history of colon cancer in his mother at the age of 56, consult placed Recommend complete smoking cessation He does avoid alcohol He does not plan on having children but family members could be tested as nee ded for hereditary stomatocytosis We will also check ferritin and iron panel, hemoglobin electrophoresis, and D AT and hemolysis labs with CBC with peripheral smear review for confirmation her e, and call with lab results with follow-up as needed We could consider osmotic fragility test or [...] elevated to hemolytic anemia from the stomatocytosis Regarding hepatomegaly he can follow-up with primary care, currently not dereck ahmadi * Assessment & Plan Note - Blaire Kwon MD - 09/09/2020 12:08 PM CDT Associated Problem(s): Loss of balance I recommend he follow-up with primary care to discuss this further with evaluati on as needed * Assessment & Plan Note - Blaire Kwon MD - 09/09/2020 12:08 PM CDT Associated Problem(s): Hepatosplenomegaly Splenomegaly from hereditary stomatocytosis could be contributing to mild thromb ocytopenia, defer work-up of hepatomegaly to primary care as needed * Assessment & Plan Note - Blaire Kwon MD - 09/09/2020 12:07 PM CDT Associated Problem(s): Cholelithiasis Gallstones can be associated with hereditary stomatocytosis, of note he has had a cholecystectomy with recent umbilical hernia repair documented in this encounter Historical Medications * This list may reflect changes made after this encounter. Start Date End Date Medication Sig Dispensed Refills metFORMIN (GLUCOPHAGE) Take 500 mg 0 500 mg tabletIndications: by mouth Currently on hold twice daily with meals. Indications: Currently on hold sertraline (ZOLOFT) 100 Take 100 mg 0 mg tablet by mouth daily. 10/10/2020 multivitamin with Take by 0 minerals (MULTIVITAMIN & mouth. He MINERAL FORMULA PO) takes an occasional multivitamin 10/10/2020 ibuprofen (ADVIL) 200 mg Take 200 mg 0 tablet by mouth every 6 hours as needed for Pain. Take with food. 10/10/2020 traMADoL (ULTRAM) 50 mg Take 50 mg by 0 tablet mouth every 8 hours as needed for Pain. 10/10/2020 metroNIDAZOLE (FLAGYL) Take 500 mg 0 500 mg tablet by mouth three times daily. Take with food. Do not drink alcohol while on metronidazole . 10/10/2020 ciprofloxacin (CIPRO) 500 Take 500 mg 0 mg tablet by mouth twice daily. added in this encounter
--- OUTSIDE RECORDS SUMMARY | 2020-10-21 07:11 | XMS REPORT | Encounter Summary ---
Author Author [facility] Organization [facility] Address Unknown Phone Unavailable Care Team Providers Care Jet Ski Mechanic Name Role Phone Anders Stevenson MD PCP Encounter Details Care Team Description Date Type Department Blaire Kwon MD [address] [place] [address] 09/06/2020 Hospital Laboratory: Main [facility] mpus, Encounter [facility] [address] [facility] [address] [place] [address] Social History Date Tobacco Use Types Packs/Day Years Used Never Assessed Sex Assigned at Date Recorded Male 07/26/2020 12:49 PM CDT Date Recorded COVID-19 Exposure Response 09/06/2020 1:06 PM CDT In the last month, have you been in contact with No / Unsure someone who was confirmed or suspected to have Coronavirus / COVID-19? documented as of this encounter Medications at Time of Discharge Start Date End Date Medication Sig Dispensed Refills metFORMIN (GLUCOPHAGE) Take 500 mg 0 500 mg tabletIndications: by mouth Currently on hold twice daily with meals. Indications: Currently on hold sertraline (ZOLOFT) 100 Take 100 mg 0 mg tablet by mouth daily. 10/10/2020 ciprofloxacin (CIPRO) 500 Take 500 mg 0 mg tablet by mouth twice daily. 10/10/2020 ibuprofen (ADVIL) 200 mg Take 200 mg 0 tablet by mouth every 6 hours as needed for Pain. Take with food. 10/10/2020 metroNIDAZOLE (FLAGYL) Take 500 mg 0 500 mg tablet by mouth three times daily. Take with food. Do not drink alcohol while on metronidazole . 10/10/2020 multivitamin with Take by 0 minerals (MULTIVITAMIN & mouth. He MINERAL FORMULA PO) takes an occasional multivitamin 10/10/2020 traMADoL (ULTRAM) 50 mg Take 50 mg by 0 tablet mouth every 8 hours as needed for Pain. documented as of this encounter Discharge Disposition Code Departure Means Destination Disposition Home Home or Self Care documented in this encounter Plan of Treatment Not on filedocumented as of this encounter Procedures Comments Procedure Name Priority Date/Time Associated Diag nosis HC DIRECT JUVENAL POLY Routine 09/06/2020 Heredita ry stomatocytosis 3:38 PM CDT (HCC) HC IRON BINDING CAPACITY Routine 09/06/2020 Hered itary stomatocytosis + %SAT 3:37 PM CDT (HCC) PERIPHERAL SMEAR Routine 09/06/[address] omatocytosis 3:37 PM CDT (HCC) HC METHYLMALONIC Routine 09/06/[address] omatocytosis ACID;QUANT 3:37 PM CDT (HCC) HC RETICULOCYTE COUNT; Routine 09/06/2020 Heredit lou stomatocytosis AUTO 3:37 PM CDT (HCC) HC CBC W/ AUTOMATED DIFF Routine 09/06/2020 Hered itary stomatocytosis 3:37 PM CDT (HCC) HC Routine 09/06/2020 Hereditary stom atocytosis ELECTROPHORESIS-HEMOGLOBI 3:37 PM CDT (HCC) N HC TSH(THYROID Routine 09/06/2020 Hereditary stom atocytosis STIMULATING HORM) 3:37 PM CDT (HCC) HC ELECTROPHORESIS-SERUM Routine 09/06/2020 Hered itary stomatocytosis 3:37 PM CDT (HCC) HC LD(LDH;LACTIC Routine 09/06/[address] omatocytosis DEHYDROGENASE) 3:37 PM CDT (HCC) HC HAPTOGLOBIN;QUANT Routine 09/06/2020 Hereditar y stomatocytosis 3:37 PM CDT (HCC) HC FOLATE, SERUM Routine 09/06/[address] omatocytosis 3:37 PM CDT (HCC) HC VITAMIN B12 Routine 09/06/2020 Hereditary stom atocytosis 3:37 PM CDT (HCC) documented in this encounter Results * DIRECT ANTIGLOBULIN TEST(ARNOLD) (09/06/2020 3:38 PM CDT) ARNOLD, Broad NEG [facility] Spectrum Juvenal ABO/RH(D) B POS [facility] Specimen Midstream Performing Organization Address [facility] P alejandro Number [facility] [address] [place] [address] * THYROID STIMULATING HORMONE-TSH (09/06/2020 3:37 PM CDT) TSH 3.51 0.35 - 5.00 MCU/ML [facility] Specimen Performing Organization Address [facility] P alejandro Number [facility] [address] [place] [address] * ELECTROPHORESIS-SERUM PROTEIN (09/06/2020 3:37 PM CDT) [...] LAB - SEP Pathologist INTERPRETED BY BELLA VIZCAINO MAIN L AB Signature By the PATH SIGNATURE ABOVE , I attest that I have personally formulated the final interpretation expressed in this report and that the above diagnosis is based upon my examination of the slides and/or other material indicated in this report. Specimen Performing Organization Address [facility] P alejandro Number [facility] [address] [place] [address] * FOLATE, SERUM (09/06/2020 3:37 PM CDT) Serum Folate 8.9 >3.9 NG/ML [facility] Specimen Blood Performing Organization Address [facility] P alejandro Number [facility] [address] [place] [address] * VITAMIN B12 (09/06/2020 3:37 PM CDT) Vitamin B12 855 180 - 914 PG/ML [facility] Specimen Performing Organization Address [facility] P alejandro Number [facility] [address] [place] [address] * METHYLMALONIC ACID QUANT (09/06/2020 3:37 PM CDT) [facility] Methylmalonic 0.10 REFERENCE LAB Acid Comment: Reference range: <=0.40 Unit: nmol/mL ADDITIONAL INFORMATION This test was developed and its performance characteristics determined by [facility] in a manner consistent with CLIA requirements. This test has not been cleared or approved by the [place].S. Food and Drug Administration. [facility] Specimen Performing Organization Address [facility] P alejandro Number REFERENCE LAB REFERENCE LAB See results for address. * HAPTOGLOBIN (09/06/2020 3:37 PM CDT) [facility] Haptoglobin <30 16 - 200 MG/DL MAIN LAB Specimen Blood Performing Organization Address [facility] P alejandro Number [facility] [address] [place] [address] * LDH-LACTATE DEHYDROGENASE (09/06/2020 3:37 PM CDT) Pathologist [facility] Lactate 172 100 - 210 U/L MAIN LAB Dehydrogenase Specimen Blood Performing Organization Address [facility] P alejandro Number [facility] [address] [place] [address] * RETICULOCYTE COUNT (09/06/2020 3:37 PM CDT) Pathologist [facility] Retic, 5.4 (H) 0.5 - 2.0 % MAIN LAB Uncorrected Retic, 5.2 % MAIN LAB Corrected Retic, Absolute 220.1 (H) 30 - 94 K/UL [facility] Specimen Performing Organization Address [facility] Code P alejandro Number [facility] [address] [place] [address] * IRON + BINDING CAPACITY + %SAT+ FERRITIN (09/06/2020 3:37 PM CDT) Iron 141 50 - 185 MCG/DL [facility] LAB Iron 292 270 - 380 MCG/DL [facility] LAB Binding-TIBC % Saturation 48 (H) 28 - 42 % [facility] LAB Ferritin 686 (H) 30 - 300 NG/ML MAIN LAB Specimen Performing Organization Address City/[facility] Code P alejandro Number MAIN LAB [address] [place] [phone] * ELECTROPHORESIS-HEMOGLOBIN (09/06/2020 3:37 PM CDT) Hgb Elect SLIGHTLY ELEVATED [facility] Interpretation HEMOGLOBIN IS PRESENT WITH UNKNOWN CLINICAL SIGNIFICANCE HISTORY OF HEREDITARY STOMATOCYTOSIS AND LOW LEVEL CHRONIC HEMOLYSIS IS NOTED. Hgb A 96.0 94.5 - 98.5 % MAIN LAB Hgb A2 2.2 1.5 - 3.5 % [facility] Hgb F 1.8 0 - 2 % [facility] LAB Pathologist INTERPRETED BY BELLA GRIMALDO M.D. [facility] L AB Signature By the PATH SIGNATURE ABOVE , I attest that I have personally formulated the final interpretation expressed in this report and that the above diagnosis is based upon my examination of the slides and/or other material indicated in this report. Specimen Performing Organization Address [facility] P alejandro Number MAIN LAB [address] [place] [address] * PERIPHERAL SMEAR (09/06/2020 3:37 PM CDT) Peripheral MACROCYTIC RED BLOOD CELLS [facility] LA B Smear WITH 10 TO 20% STOMATOCYTES AND NO INCREASE IN SCHISTOCYTES. MILD THROMBOCYTOPENIA. FINDINGS CONSISTENT WITH HISTORY OF HEREDITARY STOMATOCYTOSIS. Pathologist INTERPRETED BY ODILIA SIMMS [facility] LAB Signature Mikael By the PATH SIGNATURE ABOVE, I attest that I have personally formulated the final interpretation expressed in this report and that the above diagnosis is based upon my examination of the slides and/or other material indicated in this report. Specimen Performing Organization Address 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
--- OUTSIDE RECORDS SUMMARY | 2020-10-21 07:11 | XMS REPORT | Encounter Summary ---
Author Author [facility] Organization [facility] Address Unknown Phone Unavailable Care Team Providers Care Water Carter Name Role Phone Anders Stevenson MD PCP Reason for Visit * Reason Comments Survivorship * Consult, Test & Treat (Routine) Referred By Contact Referred To Contact Status Reason Specialty Diagnoses / Procedures Blaire Kwon MD [address] [place] [address] Cc-Ww Bmt Exm [address] [facility] [place] [address] Canceled Specialty Services Oncology Diagnoses Required Hereditary stomatocytosis (HCC) Loss of balance Biliary calculus of other site without obstruction Hepatosplenomegaly Encounter Details Care Team Description Date Type Department Akilah Sam, BINDERY MACHINE TENDER-COMMUNITY AMBASSADOR [address] [place] [address] [phone] Cigarette nicotine dependence with withd darya 10/18/2020 Office Visit Blood and Marrow Telehealth Transplant: [facility] [address] [place] [phone] Social History Date Tobacco Use Types Packs/Day Years Used Current Every Day Smoker Smokeless Tobacco: Never Used Comments Alcohol Use Standard Drinks/Week History of alcohol in the past but none currently Not Currently 0 (1 standard drink = 0.6 o z pure alcohol) Sex Assigned at Date Recorded Male 07/26/2020 12:49 PM CDT documented as of this encounter Ordered Prescriptions Start Date End Date Prescription Sig Dispensed Refills 10/18/2020 nicotine polacrilex Take one each 220 each 3 (NICORETTE) 2 mg gum by mouth as Needed for Smoking cessation. Chew to soften and park in mouth between lip and gum. May use 1 piece per hour, not to exceed 24 per day, for 12 weeks. May be used for longer, if needed. 10/18/2020 nicotine (NICODERM CQ Apply one 28 patch 2 STEP 1) 21 mg/day patch to top patchIndications: smoking of skin as cessation directed every 24 hours. Rotate patch location. Indications: stop smoking documented in this encounter Progress Notes * Akilah Sam APRN-NP - 10/18/2020 10:00 AM CDT Tobacco Cessation Management & Counseling: Obtained patient's verbal consent to treat them and their agreement to [facility] policy and NPP via this telehealth visit during the Coronavirus [facility] I spoke with Ming today via telehealth and he was agreeable to talk about tobacco cessation. He is motivated to quit and has attempted several times. He reports that he would like to quit due to health reasons as well as financial. Interest in quitting tobacco=9 Confidence in stopping tobacco=5 He has a fiance that is his support person and she has quit tobacco. There are no other smokers in the house. Counseling points: Quitting tobacco improves overall health and cancer treatment outcomes. Counseling addressed problem-solving, skills training and using medic ation to meet goals toward quitting. The following plan was developed: Plan: He would like to start NRT patches and gum. I will send information on ramo nguyen his tobacco cessation. He will plan on establishing a quit day. Based on our discussion, the patient has chosen to: Behavior: Make the house tobacco-free and Set a quit date for MARK Medication: Nicotine patch (*best in combination with 1 short-acting NRT) and Nicotine gum Behavioral support: Tobacco quitline (9-169-GPKV-NOW) Time spent counseling for tobacco cessation: >10 Follow-up: I will telehealth with him in one week. Provider will follow-up at next appointment and assess tolerability of any medic ations provided and effectiveness of counseling and make further recommendations as indicated. СЕРГЕЙ Napier documented in this encounter Plan of Treatment Not on filedocumented as of this encounter Visit Diagnoses Diagnosis Cigarette nicotine dependence with with drawal Drug withdrawal documented in this encounter
--- OUTSIDE RECORDS SUMMARY | 2020-10-21 07:11 | XMS REPORT | Clinical Summary ---
Author Author [facility] Organization [facility] Address Unknown Phone Unavailable Care Team Providers Care Opticianry Teacher Name Role Phone Anders Stevenson MD PCP Source Comments Some departments are not documenting in the electronic medical record. If you d o not see the information that you expected, contact Release of Information in [facility] [employer] department at [phone] for further assistan ce in locating additional records.[facility] Allergies No Known Active Allergies Medications End Date Status Medication Sig Dispensed Refills Start Date Active sertraline (ZOLOFT) 100 Take 100 mg 0 mg tablet by mouth daily. Active metFORMIN (GLUCOPHAGE) Take 500 mg 0 500 mg tabletIndications: by mouth Currently on hold twice daily with meals. Indications: Currently on hold Active folic acid (FOLVITE) 1 mg Take 1 mg by 0 tablet mouth daily. Active nicotine (NICODERM CQ Apply one 28 patch 2 10/06 STEP 1) 21 mg/day patch to top 1 patchIndications: smoking of skin as cessation directed every 24 hours. Rotate patch location. Indications: stop smoking Active nicotine polacrilex Take one each 220 each 3 10/06 (NICORETTE) 2 mg gum by mouth as 1 Needed for Smoking cessation. Chew to soften and park in mouth between lip and gum. May use 1 piece per hour, not to exceed 24 per day, for 12 weeks. May be used for longer, if needed. 10/10/2020 Discontinued ciprofloxacin (CIPRO) 500 Take 500 mg 0 mg tablet by mouth twice daily. 10/10/2020 Discontinued metroNIDAZOLE (FLAGYL) Take 500 mg 0 500 mg tablet by mouth three times daily. Take with food. Do not drink alcohol while on metronidazole . 10/10/2020 Discontinued traMADoL (ULTRAM) 50 mg Take 50 mg by 0 tablet mouth every 8 hours as needed for Pain. 10/10/2020 Discontinued ibuprofen (ADVIL) 200 mg Take 200 mg 0 tablet by mouth every 6 hours as needed for Pain. Take with food. 10/10/2020 Discontinued multivitamin with Take by 0 minerals (MULTIVITAMIN & mouth. He MINERAL FORMULA PO) takes an occasional multivitamin Active Problems Problem Noted Date Cigarette nicotine dependence with withdrawal 2020 Cholelithiasis Last Assessment & Plan: Formatting of this note might be differ ent from the original. Gallstones can be associated with hered itary stomatocytosis, of note he has had a cholecystectomy with umbilical he rnia repair Hereditary stomatocytosis Overview: Formatting of this note might be differ ent from the original. He had an arm injury in February 2020, some routine blood work was done, he was noted to have macrocytosis, with mi ld thrombocytopenia, 10 Jul 2020 peripheral blood smear showed increased stomatocytes, he had a CBC showing white count of 8.3, hemoglobin 13.8, pl atelet count 133, MCV of 108, reticulocyte count 6.9%, creatinine nor mal, T bili of 1.8-2.3, T bili of 0.8, rest of liver panel normal, ARNOLD ne gative reportedly, haptoglobin low reportedly [address] abdomen and pelvis cristopher wed hepatosplenomegaly with the liver and spleen both 21 cm, gallstones , 2.2 cm eggshell calcification near the duodenum, consider MRCP Referral to hematology at September 2020, he has never had a problem with hemolytic anemia or known hereditary st omatocytosis prior to this and no known family history of anemia or blood disorders, he has had gallstones with cholecystectomy done at time of bilical hernia repair and noted hepatosplenomegaly with history of alco hol in the past but none currently, he does smoke cigarettes and has no chi ldren or plans to have children at this time, labs showed ferritin of 686, iron saturation of 48%, folate of 8.9, B12 of 855 with normal methylmalon ic acid ARNOLD negative, white count normal, hemoglobin 15.6, platelet count 102, peripheral smear review with 10 to 20% stomatocytes, SPEP showed park yclonal gammopathy, LDH was normal at 172, reticulocyte count was elevated at 5.2%, haptoglobin was less than 30, TSH was 3.5, 18 September 2020 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 Mr. Rankin is a 50-year-old man with here ditary stomatocytosis diagnosed on routine blood work in 2020 incidentally noted, he has no history of thrombosis or bleeding disorder, does h ave mild thrombocytopenia that may be related to splenomegaly, and chronic low level hemolysis well compensated with normal hemoglobin, how ever HFE gene testing did show H63D single mutation with a ferritin of 686 and iron saturation of 48% in September 2020. 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, curre ntly he continues 1 mg daily Liver MRI regarding the eggshell calcif ications noted on May 2020 CT abdomen and pelvis near the duodenum is pending, as well to potentially assess for iron deposition Recommend obtaining colonoscopy due to family history of colon cancer in his mother at the age of 56, consult mina hartman and this is scheduled for the near future Recommend complete smoking cessation, a smoking cessation consultation was placed per his request He does avoid alcohol He does not plan on having children but family members could be tested as needed for hereditary stomatocytosis We could consider osmotic fragility minoo t or genetic testing for hereditary stomatocytosis though he is not interes chago at this time and without need for treatment with mild disease and no plans to have children I do think genetic testing is necessary at this ti me Splenectomy can be considered as a last resort for ongoing severe hemolysis but he certainly does not meet criteria for that at this time Recommended abdominal protection relate d to splenomegaly, his bilirubin is likely elevated to hemolytic anemia fro m the stomatocytosis Diabetes mellitus Hepatosplenomegaly Last Assessment & Plan: Formatting of this note might be differ ent from the original. 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 With some falls recently, will place ne urology consult per request Encounters Care Team Description Date Type Specialty Akilah Sam, MORTGAGE FIELD INSPECTOR-LINE ASSEMBLER Cigarette nicotine dependence with withd darya 10/18/2020 Office Visit Oncology Telehealth Blaire Kwon MD 10/11/2020 Documentation Oncology Blaire Kwon MD Hereditary stomatocytosis (HCC) (Primary Dx); Loss of balance; Biliary calculus of other site without obstruction; Type 2 diabetes mellitus with hyperglycemia, unspecified whether long-term insulin use (HCC); Hepatosplenomegaly 10/09/2020 Office Visit Oncology Telehealth Blaire Kwon MD Hereditary stomatocytosis (HCC) (Primary Dx) 09/13/2020 Orders Only Oncology Blaire Kwon MD 09/06/2020 Hospital Lab Encounter Blaire Kwon MD Hereditary stomatocytosis (HCC) (Primary Dx); Type 2 diabetes mellitus with hyperglycemia, unspecified whether long-term insulin use (HCC); Hepatosplenomegaly; Loss of balance; Biliary calculus of other site without obstruction 09/06/2020 Office Visit Oncology 09/06/2020 Travel 07/27/2020 Hospital Radiology Encounter Ayana Acosta RN Navigation Assessment 07/26/2020 Telephone Oncology from Last 3 Months Immunizations Name Administration Dates Next Due Surgical History Surgery Date Site/Laterality Comments CHOLECYSTECTOMY UMBILICAL HERNIA REPAIR Medical History Medical History Date Comments Cholelithiasis Hereditary stomatocytosis (HCC) Hepatosplenomegaly Hypertension Depression Hearing loss Diabetes mellitus (HCC) Osteoarthritis Thrombocytopenia (HCC) Loss of balance Tobacco dependence Family History Medical History Relation Name Comments Liver Disease Father Cancer Other Mom with colon canc er at 56, aunt with colon cancer at 54, also lung cancer in the f amily Relation Name Status Comments Father Other Social History Date Tobacco Use Types Packs/Day Years Used Current Every Day Smoker Smokeless Tobacco: Never Used Comments Alcohol Use Standard Drinks/Week History of alcohol in the past but none currently Not Currently 0 (1 standard drink = 0.6 o z pure alcohol) Sex Assigned at Date Recorded Male 07/26/2020 12:49 PM CDT Last Filed Vital Signs Reading Time Taken [...] 09/06/2020 2:26 PM CDT Body Mass Index Plan of Treatment Health Maintenance Due Date Last Done Comments HIV SCREENING 05/18/1987 DILATED EYE EXAM 1990 DTAP/TDAP VACCINES (1 - 1990 Tdap) FOOT EXAM 1990 HBA1C 1990 HEPATITIS C SCREENING 1990 MICROALBUMIN 1990 PHYSICAL (COMPREHENSIVE) 1990 EXAM PNEUMONIA VACCINE (DM) 1990 INFLUENZA VACCINE 12/06/2020 COVID-19 VACCINE Completed 06/20/2020, 05/23/2020 Procedures Comments Procedure Name Priority Date/Time Associated Diag nosis HC DIRECT REMBERTO POLY Routine 09/06/2020 Heredita ry stomatocytosis 3:38 PM CDT (HCC) HC TSH(THYROID Routine 09/06/2020 Hereditary stom atocytosis STIMULATING HORM) 3:37 PM CDT (HCC) HC ELECTROPHORESIS-SERUM Routine 09/06/2020 Hered itary stomatocytosis 3:37 PM CDT (HCC) HC FOLATE, SERUM Routine 09/06/[address] omatocytosis 3:37 PM CDT (HCC) HC VITAMIN B12 Routine 09/06/2020 Hereditary stom atocytosis 3:37 PM CDT (HCC) HC METHYLMALONIC Routine 09/06/[address] omatocytosis ACID;QUANT 3:37 PM CDT (HCC) HC HAPTOGLOBIN;QUANT Routine 09/06/2020 Hereditar y stomatocytosis 3:37 PM CDT (HCC) HC LD(LDH;LACTIC Routine 09/06/[address] omatocytosis DEHYDROGENASE) 3:37 PM CDT (HCC) HC RETICULOCYTE COUNT; Routine 09/06/2020 Heredit lou stomatocytosis AUTO 3:37 PM CDT (HCC) HC IRON BINDING CAPACITY Routine 09/06/2020 Hered itary stomatocytosis + %SAT 3:37 PM CDT (HCC) HC Routine 09/06/2020 Hereditary stom atocytosis ELECTROPHORESIS-HEMOGLOBI 3:37 PM CDT (HCC) N PERIPHERAL SMEAR Routine 09/06/[address] omatocytosis 3:37 PM CDT (HCC) HC CBC W/ AUTOMATED DIFF Routine 09/06/2020 Hered itary stomatocytosis 3:37 PM CDT (HCC) CT ABD/PEL EXTERNAL Routine 07/27/2020 IMAGING 12:00 AM CDT from Last 3 Months Results * DIRECT ANTIGLOBULIN TEST(ARNOLD) (09/06/2020 3:38 PM CDT) ARNOLD, Broad NEG [facility] Spectrum Remberto ABO/RH(D) B POS [facility] Specimen Midstream Performing Organization Address City/State/ZIP Code P alejandro Number [facility] [address] [place] [address] * IRON + BINDING CAPACITY + %SAT+ FERRITIN (09/06/2020 3:37 PM CDT) Iron 141 50 - 185 MCG/DL [facility] Iron 292 270 - 380 MCG/DL [facility] Binding-TIBC % Saturation 48 (H) 28 - 42 % [facility] Ferritin 686 (H) 30 - 300 NG/ML MAIN LAB Specimen Performing Organization Address [facility] P alejandro Number MAIN LAB [address] [place] [address] * PERIPHERAL SMEAR (09/06/2020 3:37 PM CDT) Peripheral MACROCYTIC RED BLOOD CELLS [facility] LA B Smear WITH 10 TO 20% STOMATOCYTES AND NO INCREASE IN SCHISTOCYTES. MILD THROMBOCYTOPENIA. FINDINGS CONSISTENT WITH HISTORY OF HEREDITARY STOMATOCYTOSIS. Pathologist INTERPRETED BY ODILIA SIMMS [facility] Signature Layo. By the PATH SIGNATURE ABOVE, I attest that I have personally formulated the final interpretation expressed in this report and that the above diagnosis is based upon my examination of the slides and/or other material indicated in this report. Specimen Performing Organization Address [facility] P alejandro Number MAIN LAB [address] [place] [address] * METHYLMALONIC ACID QUANT (09/06/2020 3:37 PM CDT) Methylmalonic 0.10 REFERENCE LAB Acid Comment: Reference range: <=0.40 Unit: nmol/mL ADDITIONAL INFORMATION This test was developed and its performance characteristics determined by [facility] in a manner consistent with CLIA requirements. This test has not been cleared or approved by the U.S. Food and Drug Administration. [facility] Specimen Performing Organization Address [facility] P alejandro Number REFERENCE LAB REFERENCE LAB See results for address. * RETICULOCYTE COUNT (09/06/2020 3:37 PM CDT) Retic, 5.4 (H) 0.5 - 2.0 % [facility] Uncorrected Retic, 5.2 % [facility] Corrected Retic, Absolute 220.1 (H) 30 - 94 K/UL [facility] Specimen Performing Organization Address [facility] P alejandro Number MAIN LAB [address] [place] [address] * CBC AND DIFF (09/06/2020 3:37 PM [...] alejandro Number [facility] [address] [place] [address] * ELECTROPHORESIS-HEMOGLOBIN (09/06/2020 3:37 PM CDT) Hgb Elect SLIGHTLY ELEVATED [facility] Interpretation HEMOGLOBIN IS PRESENT WITH UNKNOWN CLINICAL SIGNIFICANCE HISTORY OF HEREDITARY STOMATOCYTOSIS AND LOW LEVEL CHRONIC HEMOLYSIS IS NOTED. Hgb A 96.0 94.5 - 98.5 % [facility] Hgb A2 2.2 1.5 - 3.5 % [facility] Hgb F 1.8 0 - 2 % [facility] Pathologist INTERPRETED BY BELLA VIZCAINO MAIN L AB Signature By the PATH SIGNATURE ABOVE , I attest that I have personally formulated the final interpretation expressed in this report and that the above diagnosis is based upon my examination of the slides and/or other material indicated in this report. Specimen Performing Organization Address City/State/ZIP Code P alejandro Number [facility] [address] [place] [address] * THYROID STIMULATING HORMONE-TSH (09/06/2020 3:37 PM CDT) TSH 3.51 0.35 - 5.00 MCU/ML [facility] Specimen Performing Organization Address [facility] Code P alejandro Number [facility] [address] [place] [address] * ELECTROPHORESIS-SERUM PROTEIN (09/06/2020 3:37 PM CDT) [...] in this report. Specimen Performing Organization Address City/[facility] Code P alejandro Number [facility] [address] [place] [address] * LDH-LACTATE DEHYDROGENASE (09/06/2020 3:37 PM CDT) Lactate 172 100 - 210 U/L [facility] Dehydrogenase Specimen Blood Performing Organization Address City/[facility]/ZIP Code P alejandro Number [facility] [address] [place] [address] * HAPTOGLOBIN (09/06/2020 3:37 PM CDT) Haptoglobin <30 16 - 200 MG/DL [facility] Specimen Blood Performing Organization Address City/[facility]/ZIP Code P alejandro Number [facility] [address] [place] [address] * FOLATE, SERUM (09/06/2020 3:37 PM CDT) Serum Folate 8.9 >3.9 NG/ML [facility] Specimen Blood Performing Organization Address City/[facility]/ZIP Code P alejandro Number MAIN LAB [address] [place] [address] * VITAMIN B12 (09/06/2020 3:37 PM CDT) Vitamin B12 855 180 - 914 PG/ML [facility] Specimen Performing Organization Address [facility] Code P alejandro Number MAIN LAB [address] [place] [address] * CT ABD/PEL EXTERNAL IMAGING (07/27/2020 12:00 AM CDT) Specimen Narrative Performed At This order has been auto finalized and does not contain a result. from Last 3 Months Insurance Type Payer Benefit Subscriber ID Effective Phone Address Plan / Dates Group Medicaid [place] MEDICAID MEDI KAN - [id number] 2020-P LIMITED resent BENEFIT PLAN -[id number] Advance Directives Patient Fuse Cup Expander Explanation Type Date Recorded Advance Directive/DPOA
--- OUTSIDE RECORDS SUMMARY | 2020-10-21 07:11 | XMS REPORT | Encounter Summary ---
Author Author [facility] Organization [facility] Address Unknown Phone Unavailable Care Team Providers Care Wastewater Treatment Plant Operator Name Role Phone Anders Stevenson MD PCP Encounter Details Care Team Description Date Type Department Blaire Kwon MD [address] [place] [address] 10/11/2020 Documentation Hematology: [facility] [address] [place] [address] Social History Date Tobacco Use Types Packs/Day Years Used Current Every Day Smoker Smokeless Tobacco: Never Used Comments Alcohol Use Standard Drinks/Week History of alcohol in the past but none currently Not Currently 0 (1 standard drink = 0.6 o z pure alcohol) Sex Assigned at Date Recorded Male 07/26/2020 12:49 PM CDT documented as of this encounter Progress Notes * Monse Landeros RN - 10/11/2020 1:14 PM CDT Faxed Neurology Referral to Jane in [facility] [place] [phone]. documented in this encounter Plan of Treatment Not on filedocumented as of this encounter Visit Diagnoses Not on filedocumented in this encounter
[2020-10-21] MEDS ORDERED: HURRICAINE EXT TUBE (BENZOCAINE) XX PRN (07:15)
[2020-10-21 07:39] VITALS: BP 129/86
--- NOTE | 2020-10-21 08:09 | Progress Note-Pre Operative ---
Pre-Operative Progress Note H&P Reviewed The H&P was reviewed, patient examined and no changes noted. Time Seen by Provider: 08:06 Date H&P Reviewed: Oct 21, 2020 Time H&P Reviewed: 08:06 Pre-Operative Diagnosis: Chronic Gastritis, Screening Colonoscopy PABLITO CAMPOVERDE DO Oct 21, 2020 08:09
[2020-10-21 08:45] VITALS: BP 115/60
[2020-10-21 08:50] VITALS: BP 114/60
--- NOTE | 2020-10-21 08:54 | Progress Note-Post Operative ---
Post-Operative Progess Note Surgeon (s)/Nougat Candy Maker Helper (s) Surgeon PABLITO CAMPOVERDE DO Nougat Candy Maker Helper: Anders Gautam, MSIII Pre-Operative Diagnosis Chronic Gastritis, Screening Colonoscopy Post-Operative Diagnosis Gastritis Duodenal Ulcer Hiatal Hernia Esophagitis Polyps Diverticula Int Hem Procedure & Operative Findings Date of Procedure 10/21/20 Procedure Performed/Findings 1) EGD with biopsy 2) Colonoscopy with hot biopsy PROCEDURE NOTE: After informed consent was obtained, the patient was brought to the endoscopy suite, placed in bed in left lateral decubitus position. He was administered IV sedation by the CHILD AND ADOLESCENT PSYCHIATRIST who then monitored vitals the entire time, heart rate, blood pressure and pulse ox and the scope was inserted down the mouth through the esophagus into the stomach. On the way down, noted some mild esophagitis, took a picture, pushed into the stomach, pushed past the antrum into the duodenum; in the duodenum saw some sequelae of bleeding and what looked like an ulcer. Did 2 biopsies of this area. Next pulled back and did a biopsy of antrum, then retroflexed the scope, saw a small hiatal hernia, took a picture of this. I then did a biopsy of the body of the stomach and then pulled the scope into the GE junction and then did a biopsy of the GE junction. Pushed the scope back into the stomach, suctioned all the air out of the stomach. At this point pulled the scope up the esophagus and out the mouth. Switched camera, switched gloves, went down below, started the colonoscopy. Pushed all the way into about 150 cm to get all the way to cecum. On the way in I noted some diverticula and took a picture; he also had a poor pre. Once in the cecum, took a picture of the appendiceal orifice, noted the ileocecal valve and then slowly withdrew the scope, insufflating to look circumferentially at the sanabria. Starting in the cecum, up the ascending colon where I found a small flat polyp and elected to do a hot biopsy of this. Continued up to the hepatic flexure, then down the transverse colon to the splenic flexure, into the descending colon. I found another small flat polyp here and did another hot biopsy. Then went down into the sigmoid and finally into the rectum, retroflexed in the rectal vault, saw some minimal internal hemorrhoids and took a picture of this. He had a poor prep and probably should have repeat colon in 3 years to be safe; could have missed something because of the retained fecal material. The patient tolerated the procedure and he recovered in the endoscopy suite. Anesthesia Type IV sedation by CHILD AND ADOLESCENT PSYCHIATRIST Estimated Blood Loss Estimated blood loss (mL): scant Specimens/Packing Specimens Removed duodenal bx x 2 antral bx body of stomach bx GE jxn bx asc colon polyp desc colon polyp PABLITO CAMPOVERDE DO Oct 21, 2020 08:54
[2020-10-21 08:55] VITALS: BP_SYST 116; BP_SYST 117; BP_DIAS 69; BP_DIAS 71
[2020-10-21] MEDS ORDERED: PANT40TA2 PO (08:56)
--- NOTE | 2020-10-21 08:57 | Endoscopy Discharge Instruct ---
Endo Procedure/Findings Findings 1.: Duodenal Ulcer, Gastritis 2.: Hiatal Hernia, Other Findings (Esophagitis) 3.: Polyp 4.: Diverticulosis, Internal Hemorrhoids Discharge Instructions - Activity: You might feel a little sleepy until tomorrow. This is due to the medicine you received to relax you. Until tomorrow, you should: NOT drive a car, operate machinery or power tools. NOT drink any alcoholic beverages. NOT make any important decisions or sign importortant papers. Do not return to work until tomorrow, unless otherwise instructed. Resume previous activities tomorrow. Diet: Start by taking liquids. If you tolerate liquids, advance to solid food. 1.: EGD in 6-8 weeks 2.: Colonscopy in 3 years Notify Physician - If you experience excessive bleeding, unusual abdominal pain, fever, or chest pain, contact your doctor immediately. PABLITO CAMPOVERDE DO Oct 21, 2020 08:57
[2020-10-21 09:16] VITALS: BP 136/83
[2020-10-21 09:17] VITALS: BP 136/83
--- NOTE | 2020-10-21 12:35 | Anesthesia-General Post-Op ---
MAC Patient Condition Mental Status/LOC: Same as Preop Cardiovascular: Satisfactory Nausea/Vomiting: Absent Respiratory: Satisfactory Pain: Controlled Complications: Absent Post Op Complications Complications None Follow Up Care/Instructions Patient Instructions None needed. Anesthesiology Discharge Order Discharge Order Patient is doing well, no complaints, stable vital signs, no apparent adverse anesthesia problems. No complications reported per nursing. DANIEL BOATENG CRNA Oct 21, 2020 12:35
== END 2020-10-21 09:33 | disposition home or self-care (01) ==
LOC: ENDO 06:56
PROVIDERS: ATTEND Surgery
DX: Z12.11 Encounter for screening for malignant neoplasm of colon (principal); D12.2 Benign neoplasm of ascending colon; K63.5 Polyp of colon; K57.30 Diverticulosis of large intestine without perforation or abscess without bleeding; K64.8 Other hemorrhoids; K29.50 Unspecified chronic gastritis without bleeding; K44.9 Diaphragmatic hernia without obstruction or gangrene; K20.90 Esophagitis, unspecified without bleeding; E11.9 Type 2 diabetes mellitus without complications; F32.9 Major depressive disorder, single episode, unspecified; F17.210 Nicotine dependence, cigarettes, uncomplicated; Z79.899 Other long term (current) drug therapy; Z79.84 Long term (current) use of oral hypoglycemic drugs
CPT/HCPCS: 88305

== ENCOUNTER 2020-11-26 11:08 | Emergency (ER) | payer OTHER ==
[~2020-11-26] VITALS: Ht 172 cm; Wt 92.0 kg
--- OUTSIDE RECORDS SUMMARY | 2020-11-26 11:13 | XMS REPORT | Clinical Summary ---
Author Author [facility] Organization [facility] Address Unknown Phone Unavailable Care Team Providers Care Agriculture Scientist Name Role Phone Anders Stevenson MD PCP Source Comments Some departments are not documenting in the electronic medical record. If you d o not see the information that you expected, contact Release of Information in [facility] Information Management department at [phone] for further assistan ce in locating additional records.[facility] Allergies No Known Active Allergies Medications End [...] May be used for longer, if needed. 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 With some falls recently, will place ne urology consult per request Encounters Care Team Description Date Type Specialty Akilah Sam APRN-NP 11/18/2020 Scheduled Oncology Telephone 11/18/2020 Travel Akilah Sam APRN-NP Cigarette nicotine dependence with gracie lackey (Primary Dx) 10/25/2020 Office Visit Oncology Telehealth Akilah Sam, OENOLOGIST-CHIEF OF FIELD OPERATIONS Cigarette nicotine dependence with withd darya 10/18/2020 Office Visit Oncology Telehealth Blaire Kwon MD 10/11/2020 Documentation Oncology Blaire Kwon MD Hereditary stomatocytosis (HCC) (Primary Dx); Loss of balance; Biliary calculus of other site without obstruction; Type 2 diabetes mellitus with hyperglycemia, unspecified whether penitentiary insulin use (HCC); Hepatosplenomegaly 10/09/2020 Office Visit Oncology Telehealth Blaire Kwon MD Hereditary stomatocytosis (HCC) (Primary Dx) 09/13/2020 Orders Only Oncology Blaire Kwon MD 09/06/2020 Hospital Lab Encounter Blaire Kwon MD Hereditary stomatocytosis (HCC) (Primary Dx); Type 2 diabetes mellitus with hyperglycemia, unspecified whether intermediate card tender insulin use (HCC); Hepatosplenomegaly; Loss of balance; Biliary calculus of other site without obstruction 09/06/2020 Office Visit Oncology 09/06/2020 Travel from Last 3 Months Immunizations Name Administration [...] drink = 0.6 o z pure alcohol) Alcohol Habits Answer Date Recorded How often do you have a drink containing alcohol? No t asked How many drinks containing alcohol do you have on No t asked a typical day when you are drinking? How often do you have six or more drinks on one Not asked occasion? Comment: History of alcohol in the past 021 but none currently Sex Assigned at Date Recorded Male 07/26/2020 12:49 PM CDT Travel End Travel History Travel Start 11/01/2020 [place] 11/01/2020 Last Filed Vital Signs Reading Time Taken [...] Hered itary stomatocytosis 3:37 PM CDT (HCC) from Last 3 Months Results * DIRECT ANTIGLOBULIN TEST(ARNOLD) (09/06/2020 3:38 PM CDT) ARNOLD, Broad NEG [facility] Spectrum Remberto ABO/RH(D) B POS [facility] Specimen Midstream Performing Organization Address [facility] P alejandro Number [facility] [address] [place] [address] * IRON + BINDING CAPACITY + %SAT+ FERRITIN (09/06/2020 3:37 PM CDT) Iron 141 50 - 185 MCG/DL [facility] Iron 292 270 - 380 MCG/DL [facility] Binding-TIBC % Saturation 48 (H) 28 - 42 % [facility] Ferritin 686 (H) 30 - 300 NG/ML [facility] Specimen Performing Organization Address [facility] P alejandro Number [facility] [address] [place] [address] * PERIPHERAL SMEAR (09/06/2020 3:37 PM CDT) Pathologist [facility] Peripheral MACROCYTIC RED BLOOD CELLS [facility] B Smear WITH 10 TO 20% STOMATOCYTES AND NO INCREASE IN SCHISTOCYTES. MILD THROMBOCYTOPENIA. FINDINGS CONSISTENT WITH HISTORY OF HEREDITARY STOMATOCYTOSIS. Pathologist INTERPRETED BY ODILIA SIMMS [facility] Signature Mikael By the PATH SIGNATURE ABOVE, I attest that I have personally formulated the final interpretation expressed in this report and that the above diagnosis is based upon my examination of the slides and/or other material indicated in this report. Specimen Performing Organization Address [facility]/ZIP Code P alejandro Number MAIN LAB [address] [place] [address] * METHYLMALONIC ACID QUANT (09/06/2020 3:37 PM CDT) [facility] Methylmalonic 0.10 REFERENCE LAB Acid Comment: Reference range: <=0.40 Unit: nmol/mL ADDITIONAL INFORMATION This test was developed and its performance characteristics determined by [facility] in a manner consistent with CLIA requirements. This test has not been cleared or approved by the U.S. Food and Drug Administration. [facility] Specimen Performing Organization Address [facility]/ZIP [facility] P alejandro Number REFERENCE LAB REFERENCE LAB See results for address. * RETICULOCYTE COUNT (09/06/2020 3:37 PM CDT) Pathologist [facility] Retic, 5.4 (H) 0.5 - 2.0 % [facility] Uncorrected Retic, 5.2 % [facility] Corrected Retic, Absolute 220.1 (H) 30 - 94 K/UL [facility] Specimen Performing Organization Address City/[facility]/ZIP Code P alejandro Number MAIN LAB [address] [place] [address] * CBC AND DIFF (09/06/2020 3:37 PM CDT) Pathologist [facility] White Blood 8.7 4.5 - 11.0 K/UL [facility] Cells RBC 4.14 (L) 4.4 - [...] Basophil Count Specimen Blood Performing Organization Address City/State/[facility] Code P alejandro Number [facility] [address] [place] [address] * ELECTROPHORESIS-HEMOGLOBIN (09/06/2020 3:37 PM CDT) Hgb Elect SLIGHTLY ELEVATED [facility] Interpretation HEMOGLOBIN IS PRESENT WITH UNKNOWN CLINICAL SIGNIFICANCE HISTORY OF HEREDITARY STOMATOCYTOSIS AND LOW LEVEL CHRONIC HEMOLYSIS IS NOTED. Hgb A 96.0 94.5 - 98.5 % [facility] Hgb A2 2.2 1.5 - 3.5 % [facility] Hgb F 1.8 0 - 2 % [facility]IN [facility] Pathologist INTERPRETED BY BELLA GRIMALDO M.D. [facility] Signature By the PATH SIGNATURE ABOVE , I attest that I have personally formulated the final interpretation expressed in this report and that the above diagnosis is based upon my examination of the slides and/or other material indicated in this report. Specimen Performing Organization Address City/State/[facility] P alejandro Number [facility] [address] [place] [address] * THYROID STIMULATING HORMONE-TSH (09/06/2020 3:37 PM CDT) TSH 3.51 0.35 - 5.00 MCU/ML [facility] Specimen Performing Organization Address City/State/ZIP Code P alejandro Number [facility] [address] [place] [address] * ELECTROPHORESIS-SERUM PROTEIN (09/06/2020 3:37 PM CDT) [...] in this report. Specimen Performing Organization Address City/[facility]/ZIP Code P alejandro Number [facility] [address] [place] [address] * LDH-LACTATE DEHYDROGENASE (09/06/2020 3:37 PM CDT) Lactate 172 100 - 210 U/L [facility] Dehydrogenase Specimen Blood Performing Organization Address City/[facility]/ZIP Code P alejandro Number [facility] [address] [place] [address] * HAPTOGLOBIN (09/06/2020 3:37 PM CDT) Haptoglobin <30 16 - 200 MG/DL [facility] Specimen Blood Performing Organization Address City/[facility]/ZIP Code P alejandro Number [facility] [address] [place] [address] * FOLATE, SERUM (09/06/2020 3:37 PM CDT) Serum Folate 8.9 >3.9 NG/ML [facility] Specimen Blood Performing Organization Address City/[facility]/ZIP Code P alejandro Number [facility] [address] [place] [address] * VITAMIN B12 (09/06/2020 3:37 PM CDT) Vitamin B12 855 180 - 914 PG/ML [facility] Specimen Performing Organization Address City/State/ZIP Code P alejandro Number [facility] [address] [place] [address] from Last 3 Months Insurance Type Payer Benefit Subscriber ID Effective Phone Address Plan / Dates Group [place] [facility] - [id number] 2020-P LIMITED resent BENEFIT PLAN -[id number] Advance Directives Patient Coater Brake Linings Explanation Type Date Recorded Advance Directive/DPOA
--- OUTSIDE RECORDS SUMMARY | 2020-11-26 11:13 | XMS REPORT | Encounter Summary ---
Author Author [facility] Organization [facility] Address Unknown Phone Unavailable Care Team Providers Care Central Sterile Technician Name Role Phone Anders Stevenson MD PCP Reason for Visit * Reason Comments Survivorship Encounter Details Care Team Description Date Type Department Akilah Sam APRN-NP [address] [place] [address] [phone] Cigarette nicotine dependence with withd darya (Primary Dx) 10/25/2020 Office Visit Blood and Marrow Telehealth Transplant: [facility] [address], [address] [place], [place] [phone] Social History Date Tobacco Use Types Packs/Day [...] Travel End Travel History Travel Start 11/01/2020 [place] 11/01/2020 documented as of this encounter Progress Notes * Akilah Sam APRN-NP - 10/25/2020 10:00 AM CDT Tobacco Cessation Management & Counseling: Ming has filled his patches and started wearing them. He is tolerating well. He is planning a quit date in Sep. I encouraged him to try some practice quit homero es in order to be ready for triggers. He has the [place] paperwork and will ne ed to have a plan for other activities to substitute smoking. He continues to b e motivated. Call QUITLINE to get established with counseling. Counseling points: Quitting tobacco improves overall health and cancer treatment outcomes. Counseling addressed problem-solving, skills training and using medic ation to meet goals toward quitting. The following plan was developed: Plan Based on our discussion, the patient has chosen to: Behavior: Make the house tobacco-free, Set a quit date for MARK and Cut down tobacco use Medication: Nicotine patch (*best in combination with 1 short-acting NRT) and Nicotine gum Behavioral support: Tobacco quitline (-NOW) Time spent counseling for tobacco cessation: >10 Follow-up: Provider will follow-up at next appointment and assess tolerability of any medic ations provided and effectiveness of counseling and make further recommendations as indicated. Will call in 2 weeks to check on progress and tolerability. СЕРГЕЙ Napier documented in this encounter Plan of Treatment Not on filedocumented as of this encounter Visit Diagnoses Diagnosis Cigarette nicotine dependence with with drawal - Primary Drug withdrawal documented in this encounter Additional Health Concerns Assessment Noted Time A fall risk assessment has been completed for the pat ient 10/25/2020 9:40 AM CDT documented as of this encounter
--- OUTSIDE RECORDS SUMMARY | 2020-11-26 11:13 | XMS REPORT | Encounter Summary ---
Author Author [facility] Organization [facility] Address Unknown Phone Unavailable Care Team Providers Care Line Supervisor Name Role Phone Anders Stevenson MD PCP Encounter Details Care Team Description Date Type Department Akilah Sam, MACHINE SOLE LEVELER-SCALE ADJUSTER [address] [place] [address] [phone] 11/18/2020 Scheduled Blood and Marrow Telephone Transplant: [address], [address] [place] [address] Social History Date Tobacco Use Types Packs/Day [...] Travel History Travel Start 11/01/2020 [place] 11/01/2020 documented as of this encounter Plan of Treatment Not on filedocumented as of this encounter Visit Diagnoses Not on filedocumented in this encounter Additional Health Concerns Assessment Noted Time A fall risk assessment has been completed for the pat ient 10/25/2020 9:40 AM CDT documented as of this encounter
--- OUTSIDE RECORDS SUMMARY | 2020-11-26 11:13 | XMS REPORT | Encounter Summary ---
Author Author [facility] Organization [facility] Address Unknown Phone Unavailable Care Team Providers Care Hospice Volunteer Coordinator Name Role Phone Anders Stevenson MD PCP Reason for Visit * Reason Comments Survivorship * Consult, Test & Treat (Routine) Referred By Contact Referred To Contact Status Reason Specialty Diagnoses / Procedures Blaire Kwon MD [address] [place] [address] Cc-Ww Bmt Exm [address] [facility] [place] [address] Canceled Specialty Services Oncology Diagnoses Required Hereditary stomatocytosis (HCC) Loss of balance Biliary calculus of other site without obstruction Hepatosplenomegaly Encounter Details Care Team Description Date Type Department Akilah Sam, FISH PROTECTOR-ALCOHOLISM WORKER [address] [facility] [place] [address] [phone] Cigarette nicotine dependence with withd darya 10/18/2020 Office Visit Blood and Marrow Telehealth Transplant: [facility] Cancer [address] [place] [phone] Social History Date Tobacco Use Types Packs/Day [...] Travel End Travel History Travel Start 11/01/2020 [place] 11/01/2020 documented as of this encounter Ordered Prescriptions [...] in this encounter Progress Notes * Akilah Sam, ROSENDO-ALCOHOLISM WORKER - 10/18/2020 10:00 AM CDT Tobacco Cessation Management & Counseling: Obtained patient's verbal consent to treat them and their agreement [facility] and NPP via this telehealth visit [...] and Nicotine gum Behavioral support: Tobacco quitline (6-032-OKYN-NOW) Time spent counseling for tobacco cessation: >10 [...]
--- OUTSIDE RECORDS SUMMARY | 2020-11-26 11:13 | XMS REPORT | Encounter Summary ---
Author Author [facility] Organization [facility] Address Unknown Phone Unavailable Care Team Providers Care Managing Supervisor Name Role Phone Anders Stevenson MD PCP Encounter Details Care Team Description Date Type Department 11/18/2020 Travel Social History Date Tobacco Use Types [...] Travel End Travel History Travel Start 11/01/2020 [place] 11/01/2020 documented as of this encounter Plan of Treatment Not on filedocumented as of this encounter Visit Diagnoses Not on filedocumented in this encounter Additional Health Concerns Assessment Noted Time A fall risk assessment has been completed for the pat ient 10/25/2020 9:40 AM CDT documented as of this encounter
[2020-11-26 11:15] VITALS: BP 147/85
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
[2020-11-26 11:37] LABS: EOSINOPHILS # (AUTO) 0.2 10^3/uL (0.0-0.3); EOSINOPHILS % (AUTO) 2 % (0-10); HEMOGLOBIN 15.7 g/dL (13.3-17.7)
[2020-11-26 11:39] LABS: BASOPHILS # (AUTO) 0.1 10^3/uL (0.0-0.1); BASOPHILS % (AUTO) 1 % (0-10); HEMATOCRIT 43 % (40-54); LYMPHOCYTES % (AUTO) 23 % (12-44); MEAN CORPUSCULAR HEMOGLOBIN 37 pg (25-34); MEAN CORPUSCULAR HGB CONC 37 g/dL (32-36); MEAN CORPUSCULAR VOLUME 102 fL (80-99); MEAN PLATELET VOLUME 11.4 fL (9.0-12.2); MONOCYTES # (AUTO) 0.5 10^3/uL (0.0-1.0); MONOCYTES % (AUTO) 6 % (0-12); NEUTROPHILS # (AUTO) 5.9 10^3/uL (1.8-7.8); NEUTROPHILS % (AUTO) 68 % (42-75); PLATELET COUNT 104 10^3/uL (130-400); WHITE BLOOD COUNT 8.6 10^3/uL (4.3-11.0)
[2020-11-26 11:42] LABS: BILIRUBIN,URINE NEGATIVE (NEGATIVE); CLARITY,URINE CLEAR; COLOR,URINE YELLOW; GLUCOSE, URINE (UA) 1+ (NEGATIVE); KETONES,URINE NEGATIVE (NEGATIVE); LEUKOCYTE ESTERASE ,URINE NEGATIVE (NEGATIVE); NITRITE,URINE NEGATIVE (NEGATIVE); PROTEIN,URINE 1+ (NEGATIVE)
[2020-11-26 11:52] LABS: BACTERIA,URINE NEGATIVE /HPF; RBC,URINE RARE /HPF
[2020-11-26 11:56] LABS: ALBUMIN 4.4 GM/DL (3.2-4.5); BILIRUBIN,TOTAL 2.4 MG/DL (0.1-1.0); CALCIUM 9.4 MG/DL (8.5-10.1); CREATININE SERUM 0.73 MG/DL (0.60-1.30); POTASSIUM 4.2 MMOL/L (3.6-5.0); TOTAL PROTEIN 7.5 GM/DL (6.4-8.2)
[2020-11-26] MEDS ORDERED: IOHEXOL 350 MG/ML 100 ML (OMNIPAQUE 350) VIAL IV ONE (12:15)
[2020-11-26] MEDS ORDERED: NS 100 ML (IVPB) BAG IV ONE (12:15)
[2020-11-26] MEDS ORDERED: NICO2GUM (12:50)
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
== END 2020-11-26 13:39 | disposition home or self-care (01) ==
LOC: EDUNIT# 11:08 → ER 11:10
DX: S30.1XXA Contusion of abdominal wall, initial encounter (principal); R16.1 Splenomegaly, not elsewhere classified; R93.2 Abnormal findings on diagnostic imaging of liver and biliary tract; E11.9 Type 2 diabetes mellitus without complications; I10 Essential (primary) hypertension; F32.9 Major depressive disorder, single episode, unspecified; E66.9 Obesity, unspecified; F17.210 Nicotine dependence, cigarettes, uncomplicated; Z68.31 Body mass index [BMI] 31.0-31.9, adult; Z79.899 Other long term (current) drug therapy; Z79.84 Long term (current) use of oral hypoglycemic drugs; W22.8XXA Striking against or struck by other objects, initial encounter
CPT/HCPCS: 36415; 74177; 80053; 81000; 82150; 83690; 85025

== ENCOUNTER → 2020-12-09 | Outpatient (CLI) | payer OTHER ==
[~2020-12-09] MED LIST changes: +NICO2GUM
--- NOTE | 2020-12-09 17:48 | Diagnostic Imaging Report ---
EXAMINATION: MRI of the abdomen without contrast. MRCP TECHNIQUE: Multiplanar, multisequence MR images of the abdomen were obtained without intravenous contrast including 3D MIP MRCP images. HISTORY: Hereditary stomatocytosis, recent abnormal abdomen and pelvis CT. COMPARISON: None available. FINDINGS: The right inferior hemiliver lesion seen on prior CT measures 2.4 x 2.1 cm and is T1 bright and T2 dark suggestive of a hematoma. The other liver lesions are T2 hyperintense but not fluid attenuation and are likely hemangiomas. No surface nodularity. Gallbladder is normal. There is no biliary ductal dilation. No stricture or filling defect is seen. The pancreatic duct is normal. Pancreas is normal. Spleen is enlarged. Adrenal glands are normal. Kidneys are normal without hydronephrosis. Visualized bowel is normal. No lymphadenopathy is seen. Lung bases are clear. No osseous lesions are seen. IMPRESSION: 1. The right inferior hemiliver lesion has sequence characteristics suggestive of a hematoma or hemorrhagic cyst. The other lesions are likely hemangiomas. A contrast-enhanced MRI of the abdomen with and without Gadavist is recommended in three months to evaluate for evolution and confirm diagnosis. Dictated by: Dictated on workstation # [id number]
== END ==
LOC: RAD 14:45
DX: D58.8 Other specified hereditary hemolytic anemias (principal); K80.80 Other cholelithiasis without obstruction; R16.2 Hepatomegaly with splenomegaly, not elsewhere classified; R26.89 Other abnormalities of gait and mobility
CPT/HCPCS: 74181

== ENCOUNTER → 2021-01-14 | Outpatient (CLI) | payer OTHER ==
[~2021-01-14] MED LIST changes: +GADOTERATE 0.5 MMOL/ML (CLARISCAN) 20 ML VIAL IV ONE
[2021-01-14 07:48] LABS: EOSINOPHILS # (AUTO) 0.2 10^3/uL (0.0-0.3); EOSINOPHILS % (AUTO) 2 % (0-10); HEMOGLOBIN 13.8 g/dL (13.3-17.7); LYMPHOCYTES % (AUTO) 23 % (12-44); NEUTROPHILS # (AUTO) 6.8 10^3/uL (1.8-7.8)
[2021-01-14 07:50] LABS: BASOPHILS # (AUTO) 0.1 10^3/uL (0.0-0.1); BASOPHILS % (AUTO) 1 % (0-10); HEMATOCRIT 38 % (40-54); LYMPHOCYTES # (AUTO) 2.3 10^3/uL (1.0-4.0); MEAN CORPUSCULAR HEMOGLOBIN 37 pg (25-34); MEAN CORPUSCULAR HGB CONC 36 g/dL (32-36); MEAN CORPUSCULAR VOLUME 103 fL (80-99); MEAN PLATELET VOLUME 10.9 fL (9.0-12.2); MONOCYTES # (AUTO) 0.5 10^3/uL (0.0-1.0); MONOCYTES % (AUTO) 6 % (0-12); NEUTROPHILS % (AUTO) 69 % (42-75); PLATELET COUNT 120 10^3/uL (130-400); WHITE BLOOD COUNT 9.9 10^3/uL (4.3-11.0)
[2021-01-14 08:08] LABS: ALBUMIN 4.5 GM/DL (3.2-4.5); BILIRUBIN,TOTAL 2.3 MG/DL (0.1-1.0); CALCIUM 9.5 MG/DL (8.5-10.1); CREATININE SERUM 0.74 MG/DL (0.60-1.30); POTASSIUM 4.1 MMOL/L (3.6-5.0); TOTAL PROTEIN 7.7 GM/DL (6.4-8.2)
--- NOTE | 2021-01-14 10:25 | Diagnostic Imaging Report ---
EXAMINATION: MRI of the abdomen with and without contrast. TECHNIQUE: Multiplanar, multisequence MR images of the abdomen were obtained with and without intravenous contrast. HISTORY: Liver lesion. COMPARISON: 12/09/2020 FINDINGS: The T2 bright liver lesion seen on prior exam show peripheral discontinuous nodular enhancement with progressive fill-in on delayed images. They show similar signal to blood pool on all phases. The right inferior hemiliver lesion has unchanged signal characteristics of being T1 bright and T2 dark and shows no contrast enhancement. There has been a cholecystectomy. There is no biliary ductal dilation. Pancreas is normal. The pancreatic duct is normal. Spleen is enlarged. Adrenal glands are normal. The kidneys are normal. There is no hydronephrosis. Visualized bowel is normal. No lymphadenopathy is seen. Lung bases are clear. No osseus lesions are seen. IMPRESSION: 1. The T2 bright liver lesions show contrast enhancement consistent with hemangiomas. 2. The right inferior hemiliver lesion is unchanged and is T1 bright and T2 dark and shows no contrast enhancement. This may represent hematoma. However, another consideration is retained gallstones status post cholecystectomy as it is located in/near the gallbladder fossa. Dictated by: Dictated on workstation # [id number]
== END ==
LOC: RAD 08:00
DX: K76.9 Liver disease, unspecified (principal); D58.8 Other specified hereditary hemolytic anemias; Z90.49 Acquired absence of other specified parts of digestive tract
CPT/HCPCS: 36415; 74183; 80053; 82728; 83540; 83550; 85025

== ENCOUNTER 2021-02-12 20:03 | Emergency (ER) | payer OTHER ==
[~2021-02-12] VITALS: Ht 172.7 cm; Wt 94.8 kg
[~2021-02-12 20:03] MED LIST changes: -GADOTERATE 0.5 MMOL/ML (CLARISCAN) 20 ML VIAL IV ONE
--- OUTSIDE RECORDS SUMMARY | 2021-02-12 20:09 | XMS REPORT | Clinical Summary ---
Author Author [facility] Organization [facility] Address Unknown Phone Unavailable Care Team Providers Care Supervisor Particleboard Name Role Phone Anders Stevenson MD PCP Source Comments Some departments are not documenting in the electronic medical record. If you d o not see the information that you expected, contact Release of Information in [facility] [employer] Information Information Management department at [phone] for further assistan ce in locating additional records.[facility] Allergies No known active allergies Medications End Date Status Medication Sig Dispensed [...] Date Cigarette nicotine dependence with withdrawal 2020 Last Assessment & Plan: Formatting of this note might be differ ent from the original. Encouraged continued commitment to r eduction and cessation. Continue to follow with [facility] smoking cessation as nee ded. Cholelithiasis Last Assessment & Plan: Formatting of this note might be differ ent from the original. Gallstones can be associated with he reditary stomatocytosis, of note he has had a cholecystectomy with umbilica l hernia repair Hereditary stomatocytosis Overview: Formatting of this [...] have hepato megaly and does not drink alcohol. EGD and colonoscopy completed 10/21/2020 at [facility]. Sequelae of bleeding noted in the duodenum, small h iatal hernia, biopsies of the GE junction. Polyps noted on colonoscopy, minimal internal hemorrhoids. Recommending repeat colonoscopy in 3 ye ars due to poor prep and retained fecal material. Pathology showing no H . pylori. Pathology of colonoscopy showing TA with focal high-grade dyspla fabrice, and a hyperplastic polyp. 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 Repeat screening in 1 yr due to patholo gy. He has family history of colon cancer in his mother at the age of 56. He does avoid alcohol He does not plan on having children but family members could be tested as needed for hereditary stomatocytosis We could consider osmotic fragility test or genetic testing for hereditary stomatocytosis though he is not interested at this time and without need for treatment with mild di sease and no plans to have children, do think genetic testing is necessary a t this time. Splenectomy can be considered as a l ast resort for ongoing severe hemolysis but he certainly does not hillary t criteria for that at this time Recommended abdominal protection rel ated to splenomegaly, his bilirubin is likely elevated to hemolytic anemia from the stomatocytosis. Local labs / telehealth provider in 3 months Diabetes mellitus Hepatosplenomegaly Last Assessment & Plan: Formatting of this note might be differ ent from the original. 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 MRCP was recommended to assess for 2 .2 cm eggshell calcification near his duodenum noted on recent CT scan ea ajit this year. MRCP completed at [facility] on 12/09/2020, showed "right inferior hemiliver lesion has sequence characteristics suggestive of a hematoma or hemorrhagic cyst. The other lesions are likely hemangiomas." There was no reference to iron deposition in the liver. Recommended re peat abd MRI in 3 months to evaluate for involution and confirm diagnosis. Will send abd MRI orders for complet ion in [address] [facility] [place], ideally which could assess the lesion f ollow-up and potential iron depositions. Loss of balance Last Assessment & Plan: Formatting of this note might be differ ent from the original. He has a new pt appt with neurology at [facility] scheduled for 01/13/21. 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); Hepatosplenomegaly; Biliary calculus of other site without obstruction; Loss of balance; Cigarette nicotine dependence with withdrawal 01/02/2021 Office Visit Oncology Telehealth Layla Moeller APRN-NP 01/01/2021 Documentation Oncology Blaire Kwon MD 12/02/2020 Documentation Oncology Akilah Sam APRN-NP ERRONEOUS ENCOUNTER--DISREGARD (Primary Dx) 11/18/2020 Scheduled Oncology Telephone 11/18/2020 Travel from Last 3 Months Immunizations Name [...] EXAM PNEUMONIA VACCINE (DM) 1990 INFLUENZA VACCINE 10/06/2020 COVID-19 VACCINE (3 - 12/20/2020 06/20/2020, Booster for Moderna 05/23/2020 series) Procedures Comments Procedure Name Priority Date/Time Associated Diag nosis MRI MRCP Routine 12/09/2020 Hereditary stom atocytosis (HCC) Loss of balance Biliary calculus of other site without obstruction Hepatosplenomegaly from Last 3 Months Results * MRI MRCP (12/09/2020) Modality Anatomical Region Laterality Other Abdomen Narrative Performing Organization Address City/State/ZIP Code P alejandro Number [facility] from Last 3 Months Insurance Type Payer Benefit Subscriber ID Effective Phone Address Plan / Dates [place] [facility] - [id number] 2020-P [phone] [address] [place], [place] PLAN [phone] Advance Directives Patient Business Operations Specialist Explanation Type Date Recorded Advance Directive/DPOA Care Teams Start Date End Date Supervisor Particleboard Relationship Specialty 07/11/20 Anders Stevenson MD PCP - General General [address] [place] [address]
--- OUTSIDE RECORDS SUMMARY | 2021-02-12 20:09 | XMS REPORT | Encounter Summary ---
Author Author [facility] Organization [facility] Address Unknown Phone Unavailable Care Team Providers Care Lens Cementer Name Role Phone Anders Stevenson MD PCP Encounter Details Care Team Description Date Type Department Blaire Kwon MD [address] [place] [address] 01/09/2021 Documentation Hematology: [facility], [facility] [address] [place] [address] Social History Date Tobacco Use [...] of this encounter Progress Notes * Monse Landeros, CAITLYN - 01/09/2021 12:11 PM CDT Spoke to [facility], the radiologist looked at the M RI and stated that she does not see any iron overload. She will have Dr. Yoel negro review tonight when he comes in and put that in the report and it will be re f axed to us. documented in this encounter Plan of Treatment Not on filedocumented as of this encounter Visit Diagnoses Not on filedocumented in this encounter Additional Health Concerns Noted Time Assessment 01/02/2021 2:07 PM CDT A fall risk assessment has been complet ed for the patient documented as of this encounter Care Teams Start Date End Date Lens Cementer Relationship Specialty 07/11/20 Andres Stevenson MD PCP - General General [address] [place] [phone] documented as of this encounter
--- OUTSIDE RECORDS SUMMARY | 2021-02-12 20:09 | XMS REPORT | Encounter Summary ---
Author Author [facility] Organization [facility] Address Unknown Phone Unavailable Care Team Providers Care First Officer Name Role Phone Anders Stevenson MD PCP Encounter Details Care Team Description Date Type Department Layla Moeller, SEO MARKETING SPECIALIST-SHIRT PRESSER [address] [place] [address] 01/01/2021 Documentation Hematology: [facility], [facility] [address] [facility] [place] [address] Social History Date Tobacco Use [...] as of this encounter Progress Notes * Yoselin Brasher RN - 01/01/2021 8:26 AM CDT [facility] departme nt. F: [phone]. Sent successfully. documented in this encounter Plan of Treatment Not on filedocumented as of this encounter Visit Diagnoses Not on filedocumented in this encounter Additional Health Concerns Noted Time Assessment 10/25/2020 9:40 AM CDT A fall risk assessment has been complet ed for the patient documented as of this encounter Care Teams Start Date End Date First Officer Relationship Specialty 07/11/20 Anders Stevenson MD PCP - General General [address] [place] [phone] documented as of this encounter
--- OUTSIDE RECORDS SUMMARY | 2021-02-12 20:09 | XMS REPORT | Encounter Summary ---
Author Author [facility] Organization [facility] Address Unknown Phone Unavailable Care Team Providers Care Kiln Transfer Operator Name Role Phone Anders Stevenson MD PCP Reason for Referral * Radiology Services (Routine) - New Request Diagnoses / Procedures Referred By Contact Referred To Conta ct Specialty Diagnoses Hereditary stomatocytosis (HCC) Hepatosplenomegaly Procedures MRI ABD WO/W CONTRAST Layla Moeller APRN-NP [address] [place] [address] Referral ID Status Reason Start Date Expiration Visits Vi sits Date Requested Authorized [id number] New Request 01/02/2021 01/02/2022 1 1 Reason for Visit * Reason Comments Follow Up Encounter Details Care Team Description Date Type Department Blaire Kwon MD [address] [facility] [address] [place] [address] Layla Moeller APRN-NP [address] [place] [address] Hereditary stomatocytosis (HCC) (Primary Dx); Type 2 diabetes mellitus with hyperglycemia, unspecified whether halfway insulin use (HCC); Hepatosplenomegaly; Biliary calculus of other site without obstruction; Loss of balance; Cigarette nicotine dependence with withdrawal 01/02/2021 Office Visit Hematology: [facility], [facility]health [facility] [address] [facility] [place] [address] Social History Date Tobacco Use [...] as of this encounter Progress Notes * Layla Moeller, ROSENDO-NEONATAL CRITICAL CARE NURSE - 01/02/2021 2:30 PM CDT Date of Service: 01/02/2021 Obtained patient's verbal consent to treat them and their agreement to [facility] policy and NPP via this telehealth visit during the Coronavirus Public [facility]. Subjective: Reason for Visit: Follow Up HPI: Rajan Rankin is a 50 y.o. male who presents for follow-up on his previou sly diagnosed hereditary stomatocytosis. He reports feeling well. He continues h is folic acid supplement. He is working on smoking cessation, he has cut his elmer ly usage in half. He reports he completed his colonoscopy at [facility], we do not have those results yet. He had a recent fall, no injury, he has an appt sche duled with neurology at [facility] in January 2021. He had his MRCP. Problem Cigarette Nicotine Dependence With Withdrawal Cholelithiasis Hereditary Stomatocytosis (Hcc) He had an [...] carrier status, seen in 1 of 9 Cauc asians, of note he does have hepatomegaly and does not drink alcohol. EGD and colonoscopy completed 10/21/2020 at [facility]. Sequelae of bleeding no chago in the duodenum, small hiatal hernia, biopsies of the GE junction. Polyps n oted on colonoscopy, minimal internal hemorrhoids. Recommending repeat colonosc opy in 3 years due to poor prep and retained fecal material. Pathology showing no H. pylori. Pathology of colonoscopy showing TA with focal high-grade dysplas ia, and a hyperplastic polyp. Hepatosplenomegaly Loss of Balance PCP: Anders Stevenson Past Medical Hx: Medical History: Diagnosis Date Cholelithiasis Depression Diabetes mellitus (HCC) Hearing loss Hepatosplenomegaly Hereditary stomatocytosis (HCC) Hypertension Loss of balance Osteoarthritis Thrombocytopenia (HCC) Tobacco dependence Past Surgical Hx: Surgical History: Procedure Laterality Date CHOLECYSTECTOMY UMBILICAL HERNIA REPAIR Fam Hx: Family History Problem Relation Age of Onset Liver Disease Father Cancer Other Mom with colon cancer at 56, aunt with colon cancer at 54, also lung cancer in the family Social Hx: Social History Socioeconomic History Marital status: Single [...] on file Social History Narrative Lives in [place], applying for disability, his fiance is Ms. Jessica Melvin Allergies: No Known Allergies Current Medications: folic acid (FOLVITE) 1 mg tablet Take 1 mg by mouth daily. metFORMIN (GLUCOPHAGE) 500 mg tablet Take 500 mg by mouth twice daily with m elodia. Indications: Currently on hold nicotine (NICODERM CQ STEP 1) 21 mg/day patch Apply one patch to top of skin as directed every 24 hours. Rotate patch location. Indications: stop smoking nicotine polacrilex (NICORETTE) 2 mg gum Take one each by mouth as Needed fo r Smoking cessation. Chew to soften and park in mouth between lip and gum. May u se 1 piece per hour, not to exceed 24 per day, for 12 weeks. May be used for charla leia, if needed. sertraline (ZOLOFT) 100 mg tablet Take 100 mg by mouth daily. ROS Review of Systems Constitutional: Positive for fatigue. Negative for activity change, appetite frances nge, chills, diaphoresis, fever and unexpected weight change. HENT: Negative for mouth sores and nosebleeds. Eyes: Negative for visual disturbance. Respiratory: Negative for cough, chest tightness and shortness of breath. Cardiovascular: Negative for chest pain, palpitations and leg swelling. Gastrointestinal: Positive for abdominal pain. Negative for abdominal distention , blood in stool, constipation, diarrhea, nausea and vomiting. Endocrine: Negative for cold intolerance and heat intolerance. Genitourinary: Negative for hematuria. Musculoskeletal: Negative for arthralgias and joint swelling. Skin: Negative for pallor and rash. Allergic/Immunologic: Negative for environmental allergies and food allergies. Neurological: Negative for dizziness, weakness, light-headedness, numbness and h eadaches. Hematological: Negative for adenopathy. Does not bruise/bleed easily. Psychiatric/Behavioral: Negative for confusion, decreased concentration and slee p disturbance. The patient is not nervous/anxious. Objective: Vitals: 10/28/21 1408 PainSc: Six There is no height or weight on file to calculate BMI. Physical Exam Constitutional: General: He is not in acute distress. Appearance: Normal appearance. He is well-groomed. He is not ill-appearing. HENT: Head: Normocephalic and atraumatic. Eyes: General: Vision grossly intact. Gaze aligned appropriately. Pulmonary: Effort: Pulmonary effort is normal. No respiratory distress. Abdominal: General: Abdomen is flat. Musculoskeletal: General: Normal range of motion. Skin: Findings: No bruising or rash. Neurological: General: No focal deficit present. Mental Status: He is alert and oriented to person, place, and time. Mental st atus is at baseline. Motor: No weakness. Psychiatric: Attention and Perception: Attention normal. Mood and Affect: Mood normal. Behavior: Behavior normal. Behavior is cooperative. Cognition and Memory: Cognition normal. 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 MRCP was recommended to assess for 2.2 cm eggshell calcification near his duo denum noted on recent CT scan earlier this year. MRCP completed at [facility] 12/09/2020, showed "right inferior hemiliver lesion has sequence characteristic s suggestive of a hematoma or hemorrhagic cyst. 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 Recommended r epeat abd MRI in 3 months to evaluate for involution and confirm diagnosis. Will send abd MRI orders for completion in 3 months at [facility], ideally w [facility] could assess the lesion follow-up and potential iron depositions. Loss of balance He has a new pt appt with neurology at [facility] scheduled for 01/13/21 . Cigarette nicotine dependence with withdrawal Encouraged continued commitment to reduction and cessation. Continue to follo w with [facility] smoking cessation as needed. Hereditary stomatocytosis (HCC) Mr. Rankin is a [...] stomatocytosis, currently he continues 1 mg daily He reports he completed a colonoscopy at [facility] in October 2020, showing TA with focal high-grade dysplasia, and a hyperplastic polyp. Repeat screening i n 1 yr due to pathology. He has family history of colon cancer [...] mild disease and no plans to have children, do think genetic testing i s necessary at this time. Splenectomy can be considered as a last resort for ongoing severe hemolysis b ut he certainly does not meet criteria for that at this time Recommended abdominal protection related to splenomegaly, his bilirubin is li wilfrido elevated to hemolytic anemia from the stomatocytosis. Local labs / telehealth provider in 3 months Continue follow-up with PCP for routine healthcare maintenance and age-appropria te screenings and vaccinations. Patient agreed with plan of care and verbalized understanding. Questions and con cerns were addressed to patient's satisfaction. Follow-up: RTC in 3 months Total time 30 minutes spent on this visit including preparation time, obtaining and reviewing history, performing exam as applicable, counseling and educating p atient and family members as needed, ordering medications and tests and procedur es as needed, referring and communicating with other healthcare professionals as needed, documenting clinical information in the electronic record, interpreting lab and radiology results and care coordination with clinic staff. MDM of high complexity based on multiple diagnoses and at least 1+ chronic illness with yuko re exacerbations, progression, or side effects of treatment and or chronic illne ss that may pose a threat to life or bodily function, including reviewing senior sales consultant al notes and results of labs and radiology testing, ordering labs and radiology test as needed and obtaining history from an independent historian as applicable , with high risk of morbidity from additional testing or treatment. СЕРГЕЙ [place] Nurse Practitioner for Dr. Blaire Kwon Division of Hematology Pager [phone] or via [employer] documented in this encounter Plan of Treatment Order Schedule Name Type Priority Associated Diag noses Expected: 01/02/2021 (Approximate), Expi res: 01/02/2022 MRI ABD WO/W CONTRAST Imaging Routine Heredita ry stomatocytosis (HCC) Hepatosplenomegaly Expected: 04/04/2021, Expires: 2 CBC AND DIFF Lab Routine Hereditary stom atocytosis (HCC) Expected: 04/04/2021, Expires: 2 COMPREHENSIVE METABOLIC Lab Routine Heredi tary stomatocytosis PANEL (HCC) Expected: 04/04/2021, Expires: 2 IRON + BINDING CAPACITY + Lab Routine Here ditary stomatocytosis %SAT+ FERRITIN (HCC) documented as of this encounter Visit Diagnoses Diagnosis Hereditary stomatocytosis (HCC) - Prima ry Other specified hereditary hemolytic an emias Type 2 diabetes mellitus with hyperglyc emia, unspecified whether halfway insulin use (HCC) Hepatosplenomegaly Other chronic nonalcoholic liver diseas e Biliary calculus of other site without obstruction Loss of balance Other symptoms involving nervous and mu sculoskeletal systems Cigarette nicotine dependence with with drawal Drug withdrawal * Assessment & Plan Note - Layla Moeller APRN-NP - 01/02/2021 10:11 PM CDT Associated Problem(s): Hereditary stomatocytosis (HCC) [...] stomatocytosis, currently he continues 1 mg daily He reports he completed a colonoscopy at [facility] in October 2020, showing TA with focal high-grade dysplasia, and a hyperplastic polyp. Repeat screening i n 1 yr due to pathology. He has family history of colon cancer [...] mild disease and no plans to have children, do think genetic testing i s necessary at this time. Splenectomy can be considered as a last resort for ongoing severe hemolysis b ut he certainly does not meet criteria for that at this time Recommended abdominal protection related to splenomegaly, his bilirubin is li wilfrido elevated to hemolytic anemia from the stomatocytosis. Local labs / telehealth provider in 3 months * Assessment & Plan Note - Layla Moeller APRN-NP - 01/02/2021 10:09 PM CDT Associated Problem(s): Cigarette nicotine dependence with withdrawal Encouraged continued commitment to reduction and cessation. Continue to follo w with [facility] smoking cessation as needed. * Assessment & Plan Note - Layla Moeller APRN-NP - 01/02/2021 10:09 PM CDT Associated Problem(s): Loss of balance He has a new pt appt with neurology at [facility] scheduled for 01/13/21 . 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 MRCP was recommended to assess for 2.2 cm eggshell calcification near his duo denum noted on recent CT scan earlier this year. MRCP completed at [facility] 12/09/2020, showed "right inferior hemiliver lesion has sequence characteristic s suggestive of a hematoma or hemorrhagic cyst. 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 Recommended r epeat abd MRI in 3 months to evaluate for involution and confirm diagnosis. Will send abd MRI orders for completion in 3 months at [facility], ideally w [facility] could assess the lesion follow-up and potential iron depositions. * Assessment & Plan Note - Layla Moeller APRN-NP - 01/02/2021 10:03 PM CDT Associated Problem(s): Cholelithiasis Gallstones can be associated with hereditary stomatocytosis, of note he has h ad a cholecystectomy with umbilical hernia repair documented in this encounter Additional Health Concerns Noted Time Assessment 01/02/2021 2:07 PM CDT A fall risk assessment has been complet ed for the patient documented as of this encounter Care Teams Start Date End Date Kiln Transfer Operator Relationship Specialty 07/11/20 Anders Stevenson MD PCP - General General [facility] [place], [place] [phone] documented as of this encounter
--- OUTSIDE RECORDS SUMMARY | 2021-02-12 20:09 | XMS REPORT | Encounter Summary ---
Author Author [facility] Organization [facility] Address Unknown Phone Unavailable Care Team Providers Care Child Watch Attendant Name Role Phone Anders Stevenson MD PCP Encounter Details Care Team Description Date Type Department Blaire Kwon MD [address] [place] [address] Hereditary stomatocytosis (HCC); Loss of balance; Biliary calculus of other site without obstruction; Hepatosplenomegaly 01/09/2021 Orders Only Hematology: [facility], [facility] [address] [facility] [address] [place] [address] Social History Date Tobacco Use [...] PM CDT documented as of this encounter Plan of Treatment Not on filedocumented as of this encounter Procedures Comments Procedure Name Priority Date/Time Associated Diag nosis MRI MRCP Routine 12/09/2020 Hereditary stom atocytosis (HCC) Loss of balance Biliary calculus of other site without obstruction Hepatosplenomegaly documented in this encounter Results * MRI MRCP (12/09/2020) Modality Anatomical Region Laterality Other Abdomen Narrative Performing Organization Address City/State/ZIP Code P alejandro Number [facility] documented in this encounter Visit Diagnoses Diagnosis Hereditary 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
--- OUTSIDE RECORDS SUMMARY | 2021-02-12 20:09 | XMS REPORT | Encounter Summary ---
Author Author [facility] Organization [facility] Address Unknown Phone Unavailable Care Team Providers Care Forest Firefighter Name Role Phone Anders Stevenson MD PCP Encounter Details Care Team Description Date Type Department Layla Moeller, MANUFACTURING COORDINATOR-INTEGRATED CIRCUIT LAYOUT DESIGNER [address] [place] [address] 01/03/2021 Documentation Hematology: [facility], [facility] [address] [facility] [address] [place] [address] Social History Date Tobacco Use [...] Progress Notes * Yoselin Brasher RN - 01/03/2021 8:46 AM CDT Faxed lab orders dated 01/02 to [facility] lab. F: [phone]. Sent successfully. Faxed MRI abdomen order to [facility] radiology scheduling. F: . Sent successfully. [facility] F: [phone]. Requesting colonoscopy report and pathology from 2020. Sent successfully. documented in this encounter Plan of Treatment Not on filedocumented as of this encounter Visit Diagnoses Not on filedocumented in this encounter Additional Health Concerns Noted Time Assessment 01/02/2021 2:07 PM CDT A fall risk assessment has been complet ed for the patient documented as of this encounter Care Teams Start Date End Date Forest Firefighter Relationship Specialty 07/11/20 Anders Stevenson MD PCP - General General [facility] [place] [address] documented as of this encounter
[2021-02-12 20:15] VITALS: BP 151/92
[2021-02-12 20:41] LABS: BILIRUBIN,URINE NEGATIVE (NEGATIVE); CLARITY,URINE SL CLOUDY; COLOR,URINE ORANGE; GLUCOSE, URINE (UA) NEGATIVE (NEGATIVE); KETONES,URINE NEGATIVE (NEGATIVE); LEUKOCYTE ESTERASE ,URINE NEGATIVE (NEGATIVE); NITRITE,URINE NEGATIVE (NEGATIVE); PROTEIN,URINE TRACE (NEGATIVE)
[2021-02-12 20:49] LABS: BACTERIA,URINE TRACE /HPF; WBC,URINE 0-2 /HPF
[2021-02-12 20:53] LABS: BASOPHILS # (AUTO) 0.1 10^3/uL (0.0-0.1); BASOPHILS % (AUTO) 1 % (0-10); EOSINOPHILS # (AUTO) 0.3 10^3/uL (0.0-0.3); EOSINOPHILS % (AUTO) 3 % (0-10); HEMATOCRIT 44 % (40-54); HEMOGLOBIN 15.7 g/dL (13.3-17.7); LYMPHOCYTES # (AUTO) 3.3 10^3/uL (1.0-4.0); LYMPHOCYTES % (AUTO) 26 % (12-44); MEAN CORPUSCULAR HEMOGLOBIN 37 pg (25-34); MEAN CORPUSCULAR HGB CONC 36 g/dL (32-36); MEAN CORPUSCULAR VOLUME 104 fL (80-99); MONOCYTES # (AUTO) 0.7 10^3/uL (0.0-1.0); MONOCYTES % (AUTO) 6 % (0-12); NEUTROPHILS # (AUTO) 8.4 10^3/uL (1.8-7.8); NEUTROPHILS % (AUTO) 65 % (42-75); PLATELET COUNT 105 10^3/uL (130-400); WHITE BLOOD COUNT 12.9 10^3/uL (4.3-11.0)
[2021-02-12 20:56] LABS: ALBUMIN 4.8 GM/DL (3.2-4.5); CHLORIDE 101 MMOL/L (98-107); POTASSIUM 4.1 MMOL/L (3.6-5.0); SODIUM 136 MMOL/L (135-145)
[2021-02-12 20:57] LABS: AMYLASE 58 U/L (25-125); CALCIUM 9.9 MG/DL (8.5-10.1)
[2021-02-12 20:59] LABS: GLUCOSE 129 MG/DL (70-105); TOTAL PROTEIN 8.3 GM/DL (6.4-8.2)
[2021-02-12] MEDS ORDERED: IBUPROFEN 800 MG (MOTRIN) TAB PO STA (20:59)
[2021-02-12 21:00] LABS: BILIRUBIN,TOTAL 2.7 MG/DL (0.1-1.0); CARBON DIOXIDE 23 MMOL/L (21-32)
[2021-02-12 21:02] LABS: ALKALINE PHOSPHATASE 97 U/L (40-136); CREATININE SERUM 0.83 MG/DL (0.60-1.30); GFR ESTIMATED 99
[2021-02-12 21:03] LABS: BUN/CREATININE RATIO 16
[2021-02-12 21:05] LABS: ALANINE AMINOTRANSFERASE 40 U/L (0-55)
--- NOTE | 2021-02-12 21:18 | Diagnostic Imaging Report ---
CLINICAL HISTORY: Shoulder pain. COMPARISON: None. TECHNIQUE: Three views of the right shoulder. FINDINGS: There is no acute fracture or dislocation of the right shoulder. Alignment is anatomic. The imaged joint spaces are preserved. IMPRESSION: No acute fracture or dislocation in the right shoulder. Dictated by: Dictated on workstation # [id number]
--- NOTE | 2021-02-12 21:23 | ED General ---
General Chief Complaint: General Problems/Pain Stated Complaint: R SHOULDER PAIN, SIDE PAIN Nursing Triage Note: COME IN TONIGHT WITH A C/O RIGHT SHOULDER PAIN WITH MOVEMENT, STATES PAIN IS NOT ANY BETTER AFTER ONE WEEK. ALSO C/O LEFT QUADRENT ABDOMINAL PAIN, STATES HE HAS BEEN TO THE DR FOR "ENLARGED LIVER AND SPLEEN AND THEY DONT KNOW WHAT IS CAUSING IT" History of Present Illness Date Seen by Provider: Feb 12, 2021 Time Seen by Provider: 20:15 Initial Comments 50-year-old male presents for right shoulder pain has been present for approximately 2 weeks. He denies any injury to it. He has mild discomfort in his left abdomen, he reports history of elevated liver and pancreatic enzymes that Dr. Glasgow is following. He denies any other symptoms. Timing/Duration: Intermittent (2 weeks. ) Severity: Mild Associated Systoms: Denies Symptoms Allergies and Home Medications Allergies Coded Allergies: No Known Drug Allergies (Unverified , 10/15/20) Patient Home Medication List Home Medication List Reviewed: Yes Folic Acid (Folic Acid) 0.4 Mg Tablet, 0.4 MG PO DAILY, (Reported) Entered as Reported by: ABHINAV CROUCH on 10/15/20 1003 Metformin HCl (Metformin HCl) 1,000 Mg Tablet, 1,000 MG PO DAILY, (Reported) Entered as Reported by: ABHINAV CROUCH on 10/15/20 1003 Nicotine Polacrilex (Nicorette) 2 Mg Gum, 2 MG Every Day at for , (Reported) Entered as Reported by: RITA ESTRADA on 11/26/20 1250 Pantoprazole Sodium (Protonix) 40 Mg Tablet.dr, 40 MG PO BID Prescribed by: PABLITO CAMPOVERDE on 10/21/20 0856 Sertraline HCl (Zoloft) 100 Mg Tablet, 100 MG PO HS, (Reported) Entered as Reported by: AMARILIS HERCULES on 08/07/20 1007 Review of Systems Review of Systems Constitutional: no symptoms reported, see HPI Gastrointestinal: see HPI, abdominal pain (LUQ); No diarrhea, No nausea, No vomiting Musculoskeletal: see HPI, joint pain (Right shoulder) All Other Systems Reviewed Negative Unless Noted: Yes Past Lvyaokn-Gerozs-Vvpxjq Hx Patient Social History Tobacco Use?: Yes Tobacco type used: Cigarettes Smoking Status: Current Everyday Smoker Use of E-Cig and/or Vaping dev: No Substance use?: No Alcohol Use?: Yes Alcohol type: Wine Alcohol Frequency: Once in a while Immunizations Up To Date Tetanus Booster (TDap): Unknown Influenza Vaccine Up-to-Date: Yes; Up-to-Date First/Initial COVID19 Vaccinat: may 2020 Second COVID19 Vaccination Gustavo: june 2020 COVID19 Vaccine [employer]ishing [employer]: moderna Seasonal Allergies Seasonal Allergies: No Past Medical History Surgeries: Yes (LAP ADARSH AND UMBILICAL HERNIA REPAIR 08/08/[address] GODINEZ) Abdominal, Gallbladder Respiratory: No Currently Using CPAP: No Currently Using BIPAP: No Cardiac: Yes (RECENT DX) Hypertension Neurological: No ("brain is small for age") Genitourinary: No Gastrointestinal: Yes (S/P ADARSH & UMBILICAL HERNIA REPAIR 08/08/20) Abdominal Hernia, Gall Bladder Disease Musculoskeletal: Yes (bone spurs in back) Chronic Back Pain Endocrine: Yes (OBESITY; RECENT DX DM) Diabetes, Non-Insulin dep HEENT: Yes Hearing Impairment: Hard of Hearing, Bilateral Hearing Aide Cancer: No Psychosocial: Yes Depression Integumentary: No Blood Disorders: No Family Medical History Reviewed Nursing Family Hx Colon cancer No Pertinent Family Hx Physical Exam Vital Signs Vital Signs - First Documented 02/12/21 20:15 Temp 36.5 Pulse 92 Resp 20 B/P (MAP) 151/92 (111) Pulse Ox 97 Capillary Refill : Height, Weight, BMI Height: '" Weight: lbs. oz. kg; 31.00 BMI Method: General Appearance: No Apparent Distress, WD/WN Respiratory: Chest Non Tender, Lungs Clear, Normal Breath Sounds Cardiovascular: Regular Rate, Rhythm, No Edema, No Murmur, Normal Peripheral Pulses Gastrointestinal: Normal Bowel Sounds, Non Tender, Soft; No Guarding, No Mass, No Tenderness Back: Normal Inspection, No CVA Tenderness, No Vertebral Tenderness Extremity: Normal Capillary Refill, Normal Inspection, Normal Range of Motion Neurologic/Psychiatric: Alert, Oriented x3, No Motor/Sensory Deficits, Normal Mood/Affect Comments Range of motion right shoulder with elevation to 90 degrees, decreased external rotation and internal rotation. Power 5/5 biceps and triceps. Weakness 4-/5 external rotators on the right. Neurovascular status intact right upper extremity. Progress/Results/Core Measures Suspected Sepsis SIRS Temperature: Pulse: 92 Respiratory Rate: 20 Laboratory Tests 02/12/21 20:48: White Blood Count 12.9H Blood Pressure 151 /92 Mean: 111 Laboratory Tests 02/12/21 20:48: Creatinine 0.83, INR Comment 1.0, Platelet Count 105L, Total Bilirubin 2.7H Results/Orders Lab Results Laboratory Tests Test 02/12/21 20:38 02/12/21 20:48 Range/Units Urine Color ORANGE Urine Clarity SL CLOUDY Urine pH 7.0 5-9 Urine Specific [place] 1.015 L 1.016-1.022 Urine Protein TRACE H NEGATIVE Urine Glucose (UA) NEGATIVE NEGATIVE Urine Ketones NEGATIVE NEGATIVE Urine Nitrite NEGATIVE NEGATIVE Urine Bilirubin NEGATIVE NEGATIVE Urine Urobilinogen 1.0 < = 1.0 MG/DL Urine Leukocyte Esterase NEGATIVE NEGATIVE Urine RBC (Auto) NEGATIVE NEGATIVE Urine RBC NONE /HPF Urine WBC 0-2 /HPF Urine Crystals NONE /LPF Urine Bacteria TRACE /HPF Urine Casts NONE /LPF Urine Mucus SMALL H /LPF Urine Culture Indicated NO White Blood Count 12.9 H 4.3-11.0 10^3/uL Red Blood Count 4.20 L 4.30-5.52 10^6/uL Hemoglobin 15.7 13.3-17.7 g/dL Hematocrit 44 40-54 % Mean Corpuscular Volume 104 H 80-99 fL Mean Corpuscular Hemoglobin 37 H 25-34 pg Mean Corpuscular Hemoglobin Concent 36 32-36 g/dL Red Cell Distribution Width 15.0 H 10.0-14.5 % Platelet Count 105 L 130-400 10^3/uL Mean Platelet Volume 12.0 9.0-12.2 fL Immature Granulocyte % (Auto) 0 % Neutrophils (%) (Auto) 65 42-75 % Lymphocytes (%) (Auto) 26 12-44 % Monocytes (%) (Auto) 6 0-12 % Eosinophils (%) (Auto) 3 0-10 % Basophils (%) (Auto) 1 0-10 % Neutrophils # (Auto) 8.4 H 1.8-7.8 10^3/uL Lymphocytes # (Auto) 3.3 1.0-4.0 10^3/uL Monocytes # (Auto) 0.7 0.0-1.0 10^3/uL Eosinophils # (Auto) 0.3 0.0-0.3 10^3/uL Basophils # (Auto) 0.1 0.0-0.1 10^3/uL Immature Granulocyte # (Auto) 0.1 0.0-0.1 10^3/uL Prothrombin Time 14.0 12.2-14.7 SEC INR Comment 1.0 0.8-1.4 Activated Partial Thromboplast Time 33 24-35 SEC Sodium Level 136 135-145 MMOL/L Potassium Level 4.1 3.6-5.0 MMOL/L Chloride Level 101 98-107 MMOL/L Carbon Dioxide Level 23 21-32 MMOL/L Anion Gap 12 5-14 MMOL/L Blood Urea Nitrogen 13 7-18 MG/DL Creatinine 0.83 0.60-1.30 MG/DL Estimat Glomerular Filtration Rate 99 BUN/Creatinine Ratio 16 Glucose Level 129 H 70-105 MG/DL Calcium Level 9.9 8.5-10.1 MG/DL Corrected Calcium 8.5-10.1 MG/DL Total Bilirubin 2.7 H 0.1-1.0 MG/DL Aspartate Amino Transf (AST/SGOT) 18 5-34 U/L Alanine Aminotransferase (ALT/SGPT) 40 0-55 U/L Alkaline Phosphatase 97 40-136 U/L Troponin I < 0.028 <0.028 NG/ML Total Protein 8.3 H 6.4-8.2 GM/DL Albumin 4.8 H 3.2-4.5 GM/DL Amylase Level 58 25-125 U/L Lipase 21 8-78 U/L My Orders Orders - ALONA PETERSEN Ua Culture If Indicated (02/12/21 20:10) Amylase (02/12/21 20:48) Cbc With Automated Diff (02/12/21 20:48) Comprehensive Metabolic Panel (02/12/21 20:48) Protime With Inr (02/12/21 20:48) Partial Thromboplastin Time (02/12/21 20:48) Troponin I [place] (02/12/21 20:48) Shoulder, Right, 3 Views (02/12/21 20:59) Ibuprofen Tablet (Motrin Tablet) (02/12/21 20:59) Lipase (02/12/21 21:14) Vital Signs/I&O 02/12/21 20:15 Temp 36.5 Pulse 92 Resp 20 B/P (MAP) 151/92 (111) Pulse Ox 97 Capillary Refill : Blood Pressure Mean: 111 Diagnostic Imaging Diagonstic Imaging: Xray Plain Films/CT/US/NM/MRI: other (shoulder) Comments NAME: RENETTA ZURITA [facility] REC#: [id number] PT STATUS: REG ER : 1970 PHYSICIAN: ALONA PETERSEN ADMIT DATE: 02/12/21/ER Signed Date of Exam:02/12/21 SHOULDER, RIGHT, 3 VIEWS CLINICAL HISTORY: Shoulder pain. COMPARISON: None. TECHNIQUE: Three views of the right shoulder. FINDINGS: There is no acute fracture or dislocation of the right shoulder. Alignment is anatomic. The imaged joint spaces are preserved. IMPRESSION: No acute fracture or dislocation in the right shoulder. Dictated by: Dictated on workstation # [id number] Dict: 02/12/212114 Trans: 02/12/212117 [facility] [id number] Interpreted by: BINH CASTANEDA DO Electronically signed by: BINH CASTANEDA DO 02/12/212117 Reviewed: Reviewed by Me Departure Impression Primary Impression: Rotator cuff tear arthropathy of right shoulder Additional Impression: Abnormal liver enzymes Disposition: 01 HOME, SELF-CARE Condition: Improved Departure-Patient Inst. Decision time for Depature: 21:15 Referrals: RYLAN GLASGOW MD (PCP/Family) Primary Care Physician Patient Instructions: Rotator Cuff Injury (DC) Add. Discharge Instructions: You may alternate between ibuprofen 600 mg and Tylenol 650 mg every 4 hours for right shoulder pain. Follow-up with Dr. Glasgow for referral to orthopedics. Follow-up with Dr. Glasgow for liver enzymes, Return to emergency department for new, urgent healthcare needs. All discharge instructions reviewed with patient and/or family. Voiced understanding. ALONA PETERSEN Feb 12, 2021 21:23
[2021-02-12] MEDS ORDERED: Home Oxygen (22:20)
== END 2021-02-12 21:59 | disposition home or self-care (01) ==
LOC: EDUNIT# 20:03 → ER 20:05
DX: M75.101 Unspecified rotator cuff tear or rupture of right shoulder, not specified as traumatic (principal); R74.8 Abnormal levels of other serum enzymes; I10 Essential (primary) hypertension; E66.9 Obesity, unspecified; F32.9 Major depressive disorder, single episode, unspecified; E11.9 Type 2 diabetes mellitus without complications; F17.210 Nicotine dependence, cigarettes, uncomplicated; Z68.31 Body mass index [BMI] 31.0-31.9, adult; Z79.84 Long term (current) use of oral hypoglycemic drugs; Z79.899 Other long term (current) drug therapy
CPT/HCPCS: 36415; 73030; 80053; 81000; 82150; 83690; 84484; 85025; 85610; 85730

== ENCOUNTER 2021-04-03 10:41 | Emergency (ER) | payer OTHER ==
[~2021-04-03 10:41] MED LIST changes: +Home Oxygen
[2021-04-03 11:13] LABS: BASOPHILS # (AUTO) 0.1 10^3/uL (0.0-0.1); BASOPHILS % (AUTO) 1 % (0-10)
[2021-04-03] MEDS ORDERED: fentaNYL INJ 100 MCG/2 ML AMP IVP ONE (11:15)
[2021-04-03 11:16] LABS: ABSOLUTE RETIC # 314 10e9/uL (24-90); EOSINOPHILS # (AUTO) 0.2 10^3/uL (0.0-0.3); EOSINOPHILS % (AUTO) 1 % (0-10); HEMATOCRIT 42 % (40-54); HEMOGLOBIN 14.9 g/dL (13.3-17.7); LYMPHOCYTES % (AUTO) 18 % (12-44); MEAN CORPUSCULAR HEMOGLOBIN 38 pg (25-34); MEAN CORPUSCULAR HGB CONC 35 g/dL (32-36); MEAN CORPUSCULAR VOLUME 108 fL (80-99); MEAN PLATELET VOLUME 11.9 fL (9.0-12.2); MONOCYTES # (AUTO) 0.6 10^3/uL (0.0-1.0); MONOCYTES % (AUTO) 5 % (0-12); NEUTROPHILS # (AUTO) 8.6 10^3/uL (1.8-7.8); NEUTROPHILS % (AUTO) 75 % (42-75); PLATELET COUNT 119 10^3/uL (130-400); RETICULOCYTE % 8.02 % (0.50-2.40); WHITE BLOOD COUNT 11.5 10^3/uL (4.3-11.0)
[2021-04-03 11:17] LABS: ALBUMIN 4.8 GM/DL (3.2-4.5); CHLORIDE 104 MMOL/L (98-107); POTASSIUM 4.1 MMOL/L (3.6-5.0); SODIUM 137 MMOL/L (135-145)
[2021-04-03 11:18] LABS: CALCIUM 9.3 MG/DL (8.5-10.1); PROTHROMBIN TIME PATIENT 13.7 SEC (12.2-14.7)
[2021-04-03 11:19] LABS: GLUCOSE 193 MG/DL (70-105)
[2021-04-03 11:20] LABS: CARBON DIOXIDE 20 MMOL/L (21-32)
[2021-04-03 11:21] LABS: BILIRUBIN,TOTAL 2.5 MG/DL (0.1-1.0)
[2021-04-03 11:23] LABS: ALKALINE PHOSPHATASE 107 U/L (40-136); CREATININE SERUM 0.75 MG/DL (0.60-1.30); GFR ESTIMATED 111
[2021-04-03 11:24] LABS: BUN/CREATININE RATIO 13
[2021-04-03 11:25] LABS: BILIRUBIN,DIRECT 0.9 MG/DL (0.0-0.3)
--- NOTE | 2021-04-03 11:25 | ED Abdominal Pain ---
General Chief Complaint: Abdominal/GI Problems Stated Complaint: RLQ PAIN Nursing Triage Note: PT AMB TO ER WITH C/O RLQ PAIN SINCE 0500 THIS MORNING. PT HAS NOT TAKEN ANYTHING FOR THE PAIN BUT RATES IT 11/15. PT ALSO STATES BLOOD IN STOOL LAST WEEK Source of Information: Patient Exam Limitations: No Limitations History of Present Illness Date Seen by Provider: Apr 03, 2021 Time Seen by Provider: 11:25 Initial Comments To ER by private vehicle from home with reports of severe right-sided mid lateral abdominal pain that awakened him from sleep during the night. Pain is worsened by deep breathing. 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 He has hepatosplenomegaly. He denies any fevers chills nausea vomiting. He took an ibuprofen this morning for pain. 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 He smokes 1/2 pack/day.. 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 Timing/Duration: 1-2 Days Severity/Quality: Severe Location: RUQ, RLQ Radiation: No Radiation Activities at Onset: None Associated Symptoms: Nausea/Vomiting Allergies and Home Medications Allergies Coded Allergies: No Known Drug Allergies (Unverified , 10/15/20) Patient Home Medication List Home Medication List Reviewed: Yes Folic Acid (Folic Acid) 0.4 Mg Tablet, 0.4 MG PO DAILY, (Reported) Entered as Reported by: ABHINAV CROUCH on 10/15/20 1003 Metformin HCl (Metformin HCl) 1,000 Mg Tablet, 1,000 MG PO DAILY, (Reported) Entered as Reported by: ABHINAV CROUCH on 10/15/20 1003 Nicotine Polacrilex (Nicorette) 2 Mg Gum, 2 MG Every Day at for , (Reported) Entered as Reported by: RITA ESTRADA on 11/26/20 1250 Pantoprazole Sodium (Protonix) 40 Mg Tablet.dr, 40 MG PO BID Prescribed by: PABLITO CAMPOVERDE on 10/21/20 0856 Sertraline HCl (Zoloft) 100 Mg Tablet, 100 MG PO HS, (Reported) Entered as Reported by: AMARILIS HERCULES on 08/07/20 1007 Review of Systems Review of Systems Constitutional: see HPI EENTM: No Symptoms Reported Respiratory: No Symptoms Reported Cardiovascular: No Symptoms Reported Gastrointestinal: See HPI, Abdominal Pain Genitourinary: No Symptoms Reported Musculoskeletal: no symptoms reported Skin: no symptoms reported Psychiatric/Neurological: No Symptoms Reported Endocrine: No Symptoms Reported Hematologic/Lymphatic: No Symptoms Reported Past Wrjdfgm-Ghowib-Thsrcn Hx Patient Social History Tobacco Use?: Yes Tobacco type used: Cigarettes Smoking Status: Current Everyday Smoker Substance use?: No Alcohol Use?: Yes Alcohol type: Beer Alcohol Frequency: Once in a while Pt feels they are or have been: No Immunizations Up To Date Tetanus Booster (TDap): Unknown Influenza Vaccine Up-to-Date: Yes; Up-to-Date First/Initial COVID19 Vaccinat: may 2020 Second COVID19 Vaccination Gustavo: june 2020 Seasonal Allergies Seasonal Allergies: No Past Medical History Surgery/Hospitalization HX: DM, ENLARGED SPLEEN AND LIVER Surgeries: Yes (LAP ADARSH AND UMBILICAL HERNIA REPAIR 08/08/[address] GODINEZ) Abdominal, Gallbladder Respiratory: No Currently Using CPAP: No Currently Using BIPAP: No Cardiac: Yes (RECENT DX) Hypertension Neurological: No ("brain is small for age") Genitourinary: No Gastrointestinal: Yes (S/P ADARSH & UMBILICAL HERNIA REPAIR 08/08/20) Abdominal Hernia, Gall Bladder Disease Musculoskeletal: Yes (bone spurs in back) Chronic Back Pain Endocrine: Yes (OBESITY; RECENT DX DM) Diabetes, Non-Insulin dep HEENT: Yes Hearing Impairment: Hard of Hearing, Bilateral Hearing Aide Cancer: No Psychosocial: Yes Depression Integumentary: No Blood Disorders: No Family Medical History Colon cancer No Pertinent Family Hx Physical Exam Vital Signs Vital Signs - First Documented 04/03/21 10:53 Temp 36.3 Pulse 97 Resp 18 B/P (MAP) 161/95 (117) Pulse Ox 96 Capillary Refill : Height/Weight/BMI Height: '" Weight: lbs. oz. kg; BMI Method: General Appearance: WD/WN, no apparent distress HEENT: PERRL/EOMI, normal ENT inspection Respiratory: no respiratory distress, no accessory muscle use Cardiovascular: regular rate, rhythm, no murmur Gastrointestinal: normal bowel sounds, soft, tenderness Extremities: normal range of motion, non-tender Neurologic/Psychiatric: alert, normal mood/affect, oriented x 3 Skin: normal color, warm/dry Progress/Results/Core Measures Results/Orders Lab Results Laboratory Tests Test 04/03/21 10:56 04/03/21 12:07 Range/Units White Blood Count 11.5 H 4.3-11.0 10^3/uL Red Blood Count 3.91 L 4.30-5.52 10^6/uL Hemoglobin 14.9 13.3-17.7 g/dL Hematocrit 42 40-54 % Mean Corpuscular Volume 108 H 80-99 fL Mean Corpuscular Hemoglobin 38 H 25-34 pg Mean Corpuscular Hemoglobin Concent 35 32-36 g/dL Red Cell Distribution Width 15.1 H 10.0-14.5 % Platelet Count 119 L 130-400 10^3/uL Mean Platelet Volume 11.9 9.0-12.2 fL Immature Granulocyte % (Auto) 1 % Neutrophils (%) (Auto) 75 42-75 % Lymphocytes (%) (Auto) 18 12-44 % Monocytes (%) (Auto) 5 0-12 % Eosinophils (%) (Auto) 1 0-10 % Basophils (%) (Auto) 1 0-10 % Neutrophils # (Auto) 8.6 H 1.8-7.8 10^3/uL Lymphocytes # (Auto) 2.0 1.0-4.0 10^3/uL Monocytes # (Auto) 0.6 0.0-1.0 10^3/uL Eosinophils # (Auto) 0.2 0.0-0.3 10^3/uL Basophils # (Auto) 0.1 0.0-0.1 10^3/uL Immature Granulocyte # (Auto) 0.1 0.0-0.1 10^3/uL Percent Immature Platelet Fraction 6.9 0.0-7.6 % Absolute Reticulocyte Count 314 H 24-90 10e9/uL Percent Reticulocyte Count 8.02 H 0.50-2.40 % Prothrombin Time 13.7 12.2-14.7 SEC INR Comment 1.0 0.8-1.4 Activated Partial Thromboplast Time 34 24-35 SEC Sodium Level 137 135-145 MMOL/L Potassium Level 4.1 3.6-5.0 MMOL/L Chloride Level 104 98-107 MMOL/L Carbon Dioxide Level 20 L 21-32 MMOL/L Anion Gap 13 5-14 MMOL/L Blood Urea Nitrogen 10 7-18 MG/DL Creatinine 0.75 0.60-1.30 MG/DL Estimat Glomerular Filtration Rate 111 BUN/Creatinine Ratio 13 Glucose Level 193 H 70-105 MG/DL Calcium Level 9.3 8.5-10.1 MG/DL Corrected Calcium 8.5-10.1 MG/DL Total Bilirubin 2.5 H 0.1-1.0 MG/DL Direct Bilirubin 0.9 H 0.0-0.3 MG/DL Aspartate Amino Transf (AST/SGOT) 50 H 5-34 U/L Alanine Aminotransferase (ALT/SGPT) 87 H 0-55 U/L Alkaline Phosphatase 107 40-136 U/L Total Protein 8.0 6.4-8.2 GM/DL Albumin 4.8 H 3.2-4.5 GM/DL Lipase 25 8-78 U/L Urine Color YELLOW Urine Clarity CLEAR Urine pH 6.5 5-9 Urine Specific [place] 1.015 L 1.016-1.022 Urine Protein NEGATIVE NEGATIVE Urine Glucose (UA) TRACE H NEGATIVE Urine Ketones NEGATIVE NEGATIVE Urine Nitrite NEGATIVE NEGATIVE Urine Bilirubin NEGATIVE NEGATIVE Urine Urobilinogen 0.2 < = 1.0 MG/DL Urine Leukocyte Esterase NEGATIVE NEGATIVE Urine RBC (Auto) NEGATIVE NEGATIVE Urine RBC NONE /HPF Urine WBC NONE /HPF Urine Squamous Epithelial Cells RARE /HPF Urine Crystals NONE /LPF Urine Bacteria NEGATIVE /HPF Urine Casts NONE /LPF Urine Mucus NEGATIVE /LPF Urine Culture Indicated NO My Orders Orders - VIDHYA ROME APRN Cbc With Automated Diff (04/03/21 11:08) Comprehensive Metabolic Panel (04/03/21 11:08) Protime With Inr (04/03/21 11:08) Partial Thromboplastin Time (04/03/21 11:08) Bilirubin,Direct (04/03/21 11:08) Reticulocyte Count (04/03/21 11:08) Ed Iv/Invasive Line Start (04/03/21 11:08) Fentanyl Inj (Sublimaze Injection) (04/03/21 11:15) Ct Abdomen/Pelvis W (04/03/21 11:08) Ua Culture If Indicated (04/03/21 11:11) Lipase (04/03/21 11:24) Iohexol Injection (Omnipaque 350 Mg/Ml 1 (04/03/21 12:30) Received Contrast (Hold Metformin- Contr (04/03/21 12:30) Ns (Ivpb) (Sodium Chloride 0.9% Ivpb Bag (04/03/21 12:30) Sodium Chloride Flush (Catheter Flush Sy (04/03/21 12:30) Hydromorphone Injection (Dilaudid Inject (04/03/21 13:00) Medications Given in ED Current Medications Medications Dose Ordered Sig/Radha Route Start Time Stop Time Status Last Admin Dose Admin Fentanyl Citrate 50 mcg ONCE ONCE IVP 04/03/21 11:15 04/03/21 11:16 DC 04/03/21 11:18 50 MCG Hydromorphone HCl 0.5 mg ONCE ONCE IV 04/03/21 13:00 04/03/21 13:01 DC 04/03/21 13:07 0.5 MG Iohexol 100 ml ONCE ONCE IV 04/03/21 12:30 04/03/21 12:31 DC 04/03/21 12:48 99 ML Sodium Chloride 100 ml ONCE ONCE IV 04/03/21 12:30 04/03/21 12:31 DC 04/03/21 12:48 80 ML Vital Signs/I&O 04/03/21 10:53 Temp 36.3 Pulse 97 Resp 18 B/P (MAP) 161/95 (117) Pulse Ox 96 Blood Pressure Mean: 117 Departure Communication (Admissions) NAME: RENETTA ZURITA REC#: [id number] PT STATUS: REG ER : 1970 PHYSICIAN: VIDHYA ROME APRN ADMIT DATE: 04/03/21/ER Draft Date of Exam:04/03/21 CT ABDOMEN/PELVIS W INDICATION: Right lower quadrant abdominal pain. TECHNIQUE: Multiple contiguous axial images were obtained through the abdomen and pelvis after administration of intravenous contrast. Auto Exposure Controls were utilized during the CT exam to meet ALARA standards for radiation dose reduction. All CT scans use one or more of the following dose optimizing techniques: automated exposure control, MA and/or KvP adjustment based on patient size and exam type or iterative reconstruction. Comparison made with 11/26/2020 FINDINGS: Visualized portions of the lung bases are clear. There were no pleural fluid collections. There is no free intraperitoneal air. The liver shows mild fatty infiltration. A small hypodense lesion in the right lobe of liver inferiorly and anteriorly which had measured about 2.6 x 2.3 cm now measures about 1.8 x 1.9 cm. Small hypodense lesion laterally and inferiorly and posteriorly measures about 1.2 cm on the prior study now measures about the same. There is no new liver lesion. The spleen is enlarged but shows no focal lesion. The adrenals and pancreas are normal. The kidneys bilaterally appear unremarkable. There is no retroperitoneal mass or adenopathy. There is no ascites. Appendix appears normal. Visualized bowel loops show no sign of obstruction. There are uncomplicated sigmoid diverticuli. There is no pelvic lymphadenopathy. IMPRESSION: Small hypodense lesions in the right lobe of the liver inferiorly are again noted, one of the lesions is decreased in size compared to 11/26/2020. The other is the same. Splenomegaly is unchanged compared to the prior study. There are uncomplicated sigmoid diverticuli. The appendix appears normal. Dictated on workstation # [id number] Dict: 04/03/21 1302 Trans: 04/03/21 1310 [id number] Interpreted by: RENETTA YOUSIF MD Electronically signed by: Impression Primary Impression: Nonspecific abdominal pain Disposition: HOME, SELF-CARE Condition: Stable Departure-Patient Inst. Decision time for Depature: 13:14 Referrals: RYLAN GLASGOW MD (PCP/Family) Primary Care Physician Patient Instructions: Abdominal Pain, Adult ED Add. Discharge Instructions: 1. Pain medication as directed 2. Return to ER for any worsening 3. Follow-up with your doctor this week. Call today to make an appointment to be seen. All discharge instructions reviewed with patient and/or family. Voiced und erstanding. Scripts Hydrocodone/Acetaminophen (Hydrocodone-Acetamin 5-325 mg) 1 Each Tablet 1 TAB PO Q4H PRN for PAIN-MODERATE (5-7), #10 TAB Prov: VIDHYA ROME APRN 04/03/21 Work/School Note: Work Release Form Date Seen in the Emergency Department: Apr 03, 2021 Return to Work: Apr 04, 2021 VIDHYA ROME APRN Apr 03, 2021 11:25
[2021-04-03 11:26] LABS: ALANINE AMINOTRANSFERASE 87 U/L (0-55)
[2021-04-03 12:14] LABS: BILIRUBIN,URINE NEGATIVE (NEGATIVE); CLARITY,URINE CLEAR; COLOR,URINE YELLOW; GLUCOSE, URINE (UA) TRACE (NEGATIVE); KETONES,URINE NEGATIVE (NEGATIVE); LEUKOCYTE ESTERASE ,URINE NEGATIVE (NEGATIVE); NITRITE,URINE NEGATIVE (NEGATIVE); PH,URINE 6.5 (5-9); PROTEIN,URINE NEGATIVE (NEGATIVE)
[2021-04-03 12:20] LABS: BACTERIA,URINE NEGATIVE /HPF; SQUAMOUS EPITHELIAL CELL,UR RARE /HPF
[2021-04-03] MEDS ORDERED: CATHETER FLUSH 10 ML SYR IV PRN (12:30)
[2021-04-03] MEDS ORDERED: NS 100 ML (IVPB) BAG IV ONE (12:30)
[2021-04-03] MEDS ORDERED: HOLD METFORMIN - RECEIVED CONTRAST 20 ML VIAL IV SCH (12:30)
[2021-04-03] MEDS ORDERED: IOHEXOL 350 MG/ML 100 ML (OMNIPAQUE 350) VIAL IV ONE (12:30)
[2021-04-03] MEDS ORDERED: HYDROmorphone 2 MG/ML VIAL (DILAUDID) IV ONE (13:00)
--- NOTE | 2021-04-03 13:10 | Diagnostic Imaging Report ---
INDICATION: Right lower quadrant abdominal pain. TECHNIQUE: Multiple contiguous axial images were obtained through the abdomen and pelvis after administration of intravenous contrast. Auto Exposure Controls were utilized during the CT exam to meet ALARA standards for radiation dose reduction. All CT scans use one or more of the following dose optimizing techniques: automated exposure control, MA and/or KvP adjustment based on patient size and exam type or iterative reconstruction. Comparison made with 11/26/2020 FINDINGS: Visualized portions of the lung bases are clear. There were no pleural fluid collections. There is no free intraperitoneal air. The liver shows mild fatty infiltration. A small hypodense lesion in the right lobe of liver inferiorly and anteriorly which had measured about 2.6 x 2.3 cm now measures about 1.8 x 1.9 cm. Small hypodense lesion laterally and inferiorly and posteriorly measures about 1.2 cm on the prior study now measures about the same. There is no new liver lesion. The spleen is enlarged but shows no focal lesion. The adrenals and pancreas are normal. The kidneys bilaterally appear unremarkable. There is no retroperitoneal mass or adenopathy. There is no ascites. Appendix appears normal. Visualized bowel loops show no sign of obstruction. There are uncomplicated sigmoid diverticuli. There is no pelvic lymphadenopathy. IMPRESSION: Small hypodense lesions in the right lobe of the liver inferiorly are again noted, one of the lesions is decreased in size compared to 11/26/2020. The other is the same. Splenomegaly is unchanged compared to the prior study. There are uncomplicated sigmoid diverticuli. The appendix appears normal. Dictated by: Dictated on workstation # [id number]
[2021-04-03] MEDS ORDERED: ACHD5005 PO (13:15)
[2021-04-03 13:30] VITALS: BP 145/87
== END 2021-04-03 13:30 | disposition home or self-care (01) ==
LOC: EDUNIT# 10:41 → ER 10:42
DX: R10.11 Right upper quadrant pain (principal); R10.31 Right lower quadrant pain; I10 Essential (primary) hypertension; E11.9 Type 2 diabetes mellitus without complications; F32.9 Major depressive disorder, single episode, unspecified; F17.210 Nicotine dependence, cigarettes, uncomplicated; Z79.84 Long term (current) use of oral hypoglycemic drugs; Z79.899 Other long term (current) drug therapy
CPT/HCPCS: 36415; 74177; 80053; 81000; 82248; 83690; 85025; 85045; 85610; 85730

== ENCOUNTER 2022-12-14 10:28 | Emergency (ER) | payer OTHER ==
[~2022-12-14] VITALS: Ht 172.7 cm; Wt 97.7 kg
[~2022-12-14 10:28] MED LIST changes: +ACHD5005 PO; -MECL-149 PO; +MECL-291 PO
--- NOTE | 2022-12-14 11:22 | ED Upper Extremity ---
General Chief Complaint: Upper Extremity Stated Complaint: RT HAND PAIN | LOWER BACK PAIN Nursing Triage Note: pt to ed with c/o right hand pain. states it has been hurting since wednesday night and is now hard to bend it to make a fist, states he thinking there is a bump in his palm. also states lower back pain today, has had this pain for years, hx deg disc. Source: patient Exam Limitations: no limitations History of Present Illness Date Seen by Provider: Dec 14, 2022 Time Seen by Provider: 11:17 Initial Comments Patient is a 52-year-old male who presents ED with a lump to his right palmar hand. Noticed this area yesterday. Started having pain and discomfort worse with flexion of his digits. Patient denies of any injury, redness or bruising. Denies any numbness and tingling. Denies history of similar symptoms. History of carpal tunnel of his right hand in the past. Patient denies taking thing for pain. Denies fever, chills, nausea vomit, diarrhea. He denies the lump getting any bigger. Did not notice this area until yesterday. Allergies and Home Medications Allergies Coded Allergies: No Known Drug Allergies (Unverified , 10/15/20) Patient Home Medication List Home Medication List Reviewed: Yes Folic Acid (Folic Acid) 0.4 Mg Tablet, 0.4 MG PO DAILY, (Reported) Entered as Reported by: ABHINAV CROUCH on 10/15/20 1003 Hydrocodone/Acetaminophen (Hydrocodone-Acetamin 5-325 mg) 1 Each Tablet, 1 TAB PO Q4H PRN for PAIN-MODERATE (5-7) Prescribed by: VIDHYA ROME on 04/03/21 1316 Metformin HCl (Metformin HCl) 1,000 Mg Tablet, 1,000 MG PO DAILY, (Reported) Entered as Reported by: ABHINAV CROUCH on 10/15/20 1003 Nicotine Polacrilex (Nicorette) 2 Mg Gum, 2 MG Every Day at for , (Reported) Entered as Reported by: RITA ESTRADA on 11/26/20 1250 Pantoprazole Sodium (Protonix) 40 Mg Tablet.dr, 40 MG PO BID Prescribed by: PABLITO CAMPOVERDE on 10/21/20 0856 Sertraline HCl (Zoloft) 100 Mg Tablet, 100 MG PO HS, (Reported) Entered as Reported by: AMARILIS HERCULES on 08/07/20 1007 Review of Systems Constitutional: No chills, No diaphoresis, No malaise, No weakness EENTM: No ear pain, No blurred vision, No double vision Respiratory: No cough, No dyspnea on exertion Cardiovascular: No chest pain Gastrointestinal: No abdominal pain, No diarrhea, No nausea, No vomiting Genitourinary: No decreased output, No discharge, No dysuria, No frequency, No hematuria Musculoskeletal: No back pain; joint pain, muscle pain Skin: No change in color, No change in hair/nails All Other Systems Reviewed Negative Unless Noted: Yes Past Mszrvka-Gskrvd-Ilfmav Hx Patient Social History Tobacco Use?: Yes Tobacco type used: Cigarettes Smoking Status: Current Everyday Smoker Substance use?: No Alcohol Use?: No Immunizations Up To Date Tetanus Booster (TDap): Unknown First/Initial COVID19 Vaccinat: may 2020 Second COVID19 Vaccination Gustavo: june 2020 Third COVID19 Vaccination Date: FEB 2021 Seasonal Allergies Seasonal Allergies: No Past Medical History Surgery/Hospitalization HX: DM, ENLARGED SPLEEN AND LIVER Surgeries: Yes (LAP ADARSH AND UMBILICAL HERNIA REPAIR 08/08/[address] GODINEZ) Abdominal, Gallbladder Respiratory: No Currently Using CPAP: No Currently Using BIPAP: No Cardiac: Yes (RECENT DX) Hypertension Neurological: No ("brain is small for age") Genitourinary: No Gastrointestinal: Yes (S/P ADARSH & UMBILICAL HERNIA REPAIR 08/08/20) Abdominal Hernia, Gall Bladder Disease Musculoskeletal: Yes (bone spurs in back) Chronic Back Pain Endocrine: Yes (OBESITY; RECENT DX DM) Diabetes, Non-Insulin dep HEENT: Yes Hearing Impairment: Hard of Hearing, Bilateral Hearing Aide Cancer: No Psychosocial: Yes Depression Integumentary: No Blood Disorders: No Family Medical History Colon cancer No Pertinent Family Hx Physical Exam Vital Signs Vital Signs - First Documented 12/14/22 11:04 Temp 37.2 Pulse 91 Resp 16 B/P (MAP) 133/78 (96) Pulse Ox 95 Capillary Refill : Less Than 3 Seconds Height, Weight, BMI Height: '" Weight: lbs. oz. kg; 32.00 BMI Method: General Appearance: WD/WN, no apparent distress HEENT: PERRL/EOMI, normal ENT inspection, TMs normal, pharynx normal Neck: non-tender, full range of motion, supple Cardiovascular: regular rate, rhythm, no edema, no gallop, no JVD Respiratory: chest non-tender, lungs clear, normal breath sounds, no respiratory distress, no accessory muscle use Gastrointestinal: normal bowel sounds, non tender, soft, no organomegaly Back: normal inspection, no CVA tenderness Shoulder: normal inspection, non-tender, no evidence of injury Elbow/Forearm: normal inspection, non-tender, no evidence of injury Wrist: Yes normal inspection, Yes non-tender, Yes no evidence of injury Hand: Right (Small pea size free movable nodule overlying the right fourth metacarpal. Mild tenderness to palpate. Normal active range of motion of the digits. 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 Mild tenderness to palpate. No surrounding redness or swelling. Negative Phalen and Tinil signs. No evidence of trigger finger. No catching or locking. Suspect this is a ganglion cyst. Recommend outpatient orthopedic hand follow-up. This was provided discharge instructions. He is able to move his digits. Adequate strength. Suggest anti-inflammatories. Continue with range of motion. If any worsening symptoms return back to ED. Impression Primary Impression: Cyst in hand Disposition: 01 HOME, SELF-CARE Condition: Stable Departure-Patient Inst. Decision time for Depature: 11:21 Referrals: PAULA GOULD DO (PCP/Family) Primary Care Physician PROMISE HERNANDEZ DO Patient Instructions: Ganglion Cyst (DC) Add. Discharge Instructions: Anti-inflammatories for pain. Suggest follow-up with orthopedic hand for further evaluation. If any worsening symptoms return back to ED All discharge instructions reviewed with patient and/or family. Voiced understanding. ELVA LOCO Dec 14, 2022 11:22
[2022-12-14 11:27] VITALS: BP 133/78
== END 2022-12-14 11:27 | disposition home or self-care (01) ==
LOC: EDUNIT# 10:28 → ER 10:30
DX: M85.641 Other cyst of bone, right hand (principal); E66.9 Obesity, unspecified; F17.210 Nicotine dependence, cigarettes, uncomplicated; Z68.32 Body mass index [BMI] 32.0-32.9, adult
CPT/HCPCS: 99281

== ENCOUNTER 2022-12-30 11:55 | Emergency (ER) | payer OTHER ==
[~2022-12-30] VITALS: Ht 172.8 cm; Wt 92.0 kg
--- NOTE | 2022-12-30 14:20 | ED Lower Extremity ---
General Chief Complaint: Lower Extremity Stated Complaint: LT KNEE PAIN Nursing Triage Note: 2 DAYS AGO PAIN BEGAN ON HIS LEFT KNEE, ALMOST GAVE OUT ON HIM YESTERDAY, STATES HE HAD NO INJURY HOWEVER HX OF PAIN. Source: patient Exam Limitations: no limitations (KLAUS REGALADO) History of Present Illness Date Seen by Provider: Dec 30, 2022 Time Seen by Provider: 14:06 Initial Comments 52 yr old male patient is seen this afternoon in the ED for chronic knee pain that has worsened since 12/28/22. He says that he was seen for the same kind of pain many years ago in [place] and they told him that he had degeneration to his joint space at that time. He has off and on pains with it but has been much worse the last 2 days. He denies any trauma or any precipitating event to his arrival today. He has tried Tylenol, Ibuprofen and elevation a couple days prior but said it did not help. He says that it has been hurting bad enough at times that the pain radiates up and down his leg. He rates the pain as a 9/10 currently. He denies any numbness or tingling to either leg, nausea, vomiting, GI disturbances, shortness of breath, or palpitations. Onset: other (December 28. ) Pain/Injury Location: left knee Method of Injury: unknown Modifying Factors: Worse With Pain Medication, Worse With Rest (KLAUS REGALADO) Allergies and Home Medications Allergies Coded Allergies: No Known Drug Allergies (Unverified , 10/15/20) Patient Home Medication List Home Medication List Reviewed: Yes (KLAUS REGALADO) Folic Acid (Folic Acid) 0.4 Mg Tablet, 0.4 MG PO DAILY, (Reported) Entered as Reported by: ABHINAV CROUCH on 10/15/20 1003 Hydrocodone/Acetaminophen (Hydrocodone-Acetamin 5-325 mg) 1 Each Tablet, 1 TAB PO Q4H PRN for PAIN-MODERATE (5-7) Prescribed by: VIDHYA ROME on 04/03/21 1316 Metformin HCl (Metformin HCl) 1,000 Mg Tablet, 1,000 MG PO DAILY, (Reported) Entered as Reported by: ABHINAV CROUCH on 10/15/20 1003 Nicotine Polacrilex (Nicorette) 2 Mg Gum, 2 MG Every Day at for , (Reported) Entered as Reported by: RITA ESTRADA on 11/26/20 1250 Pantoprazole Sodium (Protonix) 40 Mg Tablet.dr, 40 MG PO BID Prescribed by: PABLITO CAMPOVERDE on 10/21/20 0856 Sertraline HCl (Zoloft) 100 Mg Tablet, 100 MG PO HS, (Reported) Entered as Reported by: AMARILIS HERCULES on 08/07/20 1007 Tramadol HCl (Tramadol HCl) 50 Mg Tablet, 50 MG PO Q6H PRN for PAIN BREAKTROUGH Prescribed by: MIGDALIA BRICE on 12/30/22 1527 Review of Systems Constitutional: No chills, No diaphoresis, No fever, No weakness EENTM: no symptoms reported Respiratory: no symptoms reported; No dyspnea on exertion, No short of breath Cardiovascular: No chest pain, No palpitations, No syncope Gastrointestinal: No abdominal pain, No constipation, No diarrhea, No loss of appetite, No nausea, No vomiting Musculoskeletal: No back pain; joint pain; No joint swelling (KLAUS REGALADO) Past Gicsmaq-Uoxuzu-Nsijtk Hx Patient Social History Tobacco Use?: Yes Tobacco type used: Cigarettes Smoking Status: Current Everyday Smoker Use of E-Cig and/or Vaping dev: Yes E-Cig or Vaping type used: Nicotine Use of E-Cig and/or Vaping Arturo: Current Everyday User Substance use?: No Alcohol Use?: No Alcohol Frequency: Once in a while Pt feels they are or have been: No (KLAUS REGALADO) Immunizations Up To Date Tetanus Booster (TDap): Unknown Influenza Vaccine Up-to-Date: No; Not Current First/Initial COVID19 Vaccinat: may 2020 Second COVID19 Vaccination Gustavo: june 2020 Third COVID19 Vaccination Date: FEB 2021 (KLAUS REGALADO) Seasonal Allergies Seasonal Allergies: No (KLAUS REGALADO) Past Medical History Surgery/Hospitalization HX: DM, ENLARGED SPLEEN AND LIVER HERNIA REPAIR, ADARSH Surgeries: Yes (LAP ADARSH AND UMBILICAL HERNIA REPAIR 08/08/[address] GODINEZ) Abdominal, Gallbladder Respiratory: No Currently Using CPAP: No Currently Using BIPAP: No Cardiac: Yes (RECENT DX) Hypertension Neurological: No ("brain is small for age") Genitourinary: No Gastrointestinal: Yes (S/P ADARSH & UMBILICAL HERNIA REPAIR 08/08/20) Abdominal Hernia, Gall Bladder Disease Musculoskeletal: Yes (bone spurs in back) Chronic Back Pain Endocrine: Yes (OBESITY; RECENT DX DM) Diabetes, Non-Insulin dep HEENT: Yes Hearing Impairment: Hard of Hearing, Bilateral Hearing Aide Cancer: No Psychosocial: Yes Depression Integumentary: No Blood Disorders: No (KLAUS REGALADO) Family Medical History Colon cancer No Pertinent Family Hx (KLAUS REGALADO) Physical Exam Vital Signs Vital Signs - First Documented 12/30/22 12:33 Temp 36.8 Pulse 80 Resp 18 B/P (MAP) 147/89 (108) Pulse Ox 97 O2 Delivery Room Air (MIGDALIA RAMIREZ MD) Vital Signs Capillary Refill : Less Than 3 Seconds (KLAUS REGALADO) Height, Weight, BMI Height: '" Weight: lbs. oz. kg; 30.00 BMI Method: General Appearance: WD/WN, no apparent distress Cardiovascular: regular rate, rhythm, no gallop, no murmur Respiratory: lungs clear, normal breath sounds, no respiratory distress, no accessory muscle use Gastrointestinal: non tender, soft Hips: bilateral hip non-tender, bilateral hip normal inspection, bilateral hip normal range of motion, bilateral hip no evidence of injury Legs: bilateral leg non-tender, bilateral leg normal inspection, bilateral leg normal range of motion, bilateral leg no evidence of injury Knees: right knee non-tender, right knee normal inspection, right knee normal range of motion; bilateral knee no evidence of injury; left knee bone tenderness, left knee pain (medial, lateral side of patellar tendon, posterior tenderness. ), left knee soft tissue tenderness, left knee other (decreased strength and flexion and extension of left knee) Reflexes: 1+ knee (R), 1+ knee (L) Neurologic/Psychiatric: alert, normal mood/affect, oriented x 3 (KLAUS REGALADO) Progress/Results/Core Measures Results/Orders My Orders Orders - MIGDALIA RAMIREZ MD Knee, Left, 3 Views (12/30/22 14:24) (MIDGALIA RAMIREZ MD) Vital Signs/I&O 12/30/22 12/30/22 12/30/22 12:33 14:04 15:36 Temp 36.8 Pulse 80 83 83 Resp 18 18 18 B/P (MAP) 147/89 (108) 159/85 (109) 163/79 Pulse Ox 97 97 97 O2 Delivery Room Air Room Air Room Air (MIGDALIA RAMIREZ MD) Blood Pressure Mean: 109 Progress Progress Note : Time: 14:06 Progress Note 14:06 - Patient is seen in the emergency room for a chronic left knee pain that has worsened over the past two days. Analgesics have not helped his the pain. He notes the pain as a 9/10 and says that it will radiate up and down his leg occasionally. He was told prior in [place] that he had degenerative knee pain but states this is much worse. He has no mechanism of injury to the affected left knee. He has moderate tenderness to the medial and lateral side of the patellar tendon as well as posterior tenderness to the knee. Reflexes are 2+ bilaterally of the knees. Small decrease in strength to the left knee compared to the right going into flexion and extension. Cardiovascular and Pulmonary exam are unremarkable at this time. (KLAUS REGALADO) Progress Note : Progress Note Patient was interviewed and examined by me along with PA student. Pt denies any injury, old or new. He sometimes feels the knee is unstable. X-ray was obtained with no acute or severe pathology noted on my interpretation. See discharge instructions for further discussion. (MIGDALIA RAMIREZ MD) Departure Impression Primary Impression: Left knee pain Qualified Codes: M25.562 - Pain in left knee Disposition: 01 HOME, SELF-CARE Condition: Improved Departure-Patient Inst. Decision time for Depature: 15:23 (MIGDALIA RAMIREZ MD) Referrals: PAULA GOULD DO (PCP/Family) Primary Care Physician Patient Instructions: Knee Pain ED Add. Discharge Instructions: You may continue taking Tylenol (acetaminophen) up to 1000 mg every 6 hours as needed for pain. Add ibuprofen up to 600 mg every 6 hours as needed for additional pain relief. Take ibuprofen with food or milk to avoid stomach upset and drink plenty of water to stay well-hydrated. As a third line pain medication, you may use Ultram (tramadol) as prescribed. Ultram may cause drowsiness, so use with caution and do not drive, operate machinery, or make important decisions while on Ultram. Ultram may also cause constipation, see may wish to take a stool softener such as Colace while taking Ultram. Follow-up with Dr. Gould soon as possible to discuss further treatment and evaluation options. Other interventions such as physical therapy, MRI, etc. may be warranted. Using a knee sleeve or wrap to add support may be beneficial. Return to care via worsening symptoms despite following these instructions. All discharge instructions reviewed with patient and/or family. Voiced understanding. Scripts Tramadol HCl (Tramadol HCl) 50 Mg Tablet 50 MG PO Q6H PRN for PAIN WILLIETRSABINA, #10 TAB Prov: MIGDALIA RAMIREZ MD 12/30/22 Medical Student Attestation and Attending Note: I have personally interviewed and examined this patient along with JOHNY Daniel. I have reviewed student documentation including history, physical, and assessments. I agree with the documentation except where otherwise noted. Exam: General: Alert, oriented, no acute distress, well developed Ext: Left knee normal in appearance with not inflammation, erythema, or edema. Some crepitus noted with range of motion. Mild to moderate tenderness over the patella and the entire joint line. No laxity noted. Neuropsych: Alert, oriented, no focal deficits Skin: Warm and dry without rashes (MIGDALIA RAMIREZ MD) Copy Copies To 1: PAULA GOULD BRETT Dec 30, 2022 14:20 MIGDALIA RAMIREZ MD Dec 30, 2022 15:27
--- NOTE | 2022-12-30 15:02 | Diagnostic Imaging Report ---
CLINICAL INDICATION: Patient with knee pain for 2 days. EXAM: X-ray of the left knee, 3 views. COMPARISON: None. FINDINGS: There is no acute fracture or dislocation. There is no knee effusion. There is no significant bony abnormality. IMPRESSION: Unremarkable x-ray of the left knee. Dictated by: Dictated on workstation # [id number]
[2022-12-30] MEDS ORDERED: TRM50T PO (15:26)
[2022-12-30 15:36] VITALS: BP 163/79
== END 2022-12-30 15:36 | disposition home or self-care (01) ==
LOC: EDUNIT# 11:55 → ER 11:57
DX: M25.562 Pain in left knee (principal); F17.210 Nicotine dependence, cigarettes, uncomplicated; F17.290 Nicotine dependence, other tobacco product, uncomplicated; E66.9 Obesity, unspecified; Z68.30 Body mass index [BMI] 30.0-30.9, adult
CPT/HCPCS: 73562

== ENCOUNTER 2023-01-19 00:29 | Emergency (ER) | payer OTHER ==
[~2023-01-19] VITALS: Ht 172 cm; Wt 86.0 kg
[~2023-01-19 00:29] MED LIST changes: +TRM50T PO
[2023-01-19 00:45] VITALS: BP 131/94
--- NOTE | 2023-01-19 01:04 | ED Abdominal Pain ---
General Chief Complaint: Abdominal/GI Problems Stated Complaint: ABD PX Source of Information: Patient Exam Limitations: No Limitations History of Present Illness Date Seen by Provider: Jan 19, 2023 Time Seen by Provider: 01:04 Initial Comments Patient is a 52-year-old male who presents to the emergency room with a chief complaint of left upper quadrant abdominal pain. Patient states the pain started within the last 24 to 36 hours. He describes it as dull and achy. He has not really taken anything to alleviate his symptoms. He has had some mild nausea he has felt a little dizzy and unwell. He has had prior cholecystectomy. He denies diarrhea. His last bowel movement was normal and 24 hours ago. No urinary difficulties. Movement makes the pain worse. He states he has had a couple of falls and has been told in the past that he has an enlarged spleen and an enlarged liver. He denies daily alcohol use. No recent fevers or chills. No blood in his stool or blood in his urine. Currently rates the pain at an "8". Timing/Duration: 1-2 Days Severity/Quality: Severe, Aching Location: LUQ Radiation: No Radiation Activities at Onset: None Modifying Factors: Worsens With Movement, Worsens With Palpation Allergies and Home Medications Allergies Coded Allergies: No Known Drug Allergies (Unverified , 10/15/20) Patient Home Medication List Home Medication List Reviewed: Yes Folic Acid (Folic Acid) 0.4 Mg Tablet, 0.4 MG PO DAILY, (Reported) Entered as Reported by: ABHINAV CROUCH on 10/15/20 1003 Hydrocodone/Acetaminophen (Hydrocodone-Acetamin 5-325 mg) 1 Each Tablet, 1 TAB PO Q4H PRN for PAIN-MODERATE (5-7) Prescribed by: VIDHYA ROME on 04/03/21 1316 Metformin HCl (Metformin HCl) 1,000 Mg Tablet, 1,000 MG PO DAILY, (Reported) Entered as Reported by: ABHINAV CROUCH on 10/15/20 1003 Nicotine Polacrilex (Nicorette) 2 Mg Gum, 2 MG Every Day at for , (Reported) Entered as Reported by: RITA ESTRADA on 11/26/20 1250 Pantoprazole Sodium (Protonix) 40 Mg Tablet.dr, 40 MG PO BID Prescribed by: PABLITO CAMPOVERDE on 10/21/20 0856 Sertraline HCl (Zoloft) 100 Mg Tablet, 100 MG PO HS, (Reported) Entered as Reported by: AMARILIS HERCULES on 08/07/20 1007 Tramadol HCl (Tramadol HCl) 50 Mg Tablet, 50 MG PO Q6H PRN for PAIN BREAKTROUGH Prescribed by: MIGDALIA BRICE on 12/30/22 1527 Review of Systems Review of Systems Constitutional: see HPI EENTM: No Symptoms Reported Respiratory: No Symptoms Reported Cardiovascular: No Symptoms Reported Gastrointestinal: Abdominal Pain Genitourinary: No Symptoms Reported Musculoskeletal: no symptoms reported Skin: no symptoms reported Psychiatric/Neurological: Other ("Dizzy") Past Crccqkq-Paqurg-Gsdwne Hx Immunizations Up To Date Tetanus Booster (TDap): Unknown First/Initial COVID19 Vaccinat: may 2020 Second COVID19 Vaccination Gustavo: june 2020 Third COVID19 Vaccination Date: FEB 2021 Seasonal Allergies Seasonal Allergies: No Past Medical History Surgery/Hospitalization HX: DM, ENLARGED SPLEEN AND LIVER HERNIA REPAIR, [facility] Surgeries: Yes (LAP ADARSH AND UMBILICAL HERNIA REPAIR 08/08/[address] GODINEZ) Abdominal, Gallbladder Respiratory: No Currently Using CPAP: No Currently Using BIPAP: No Cardiac: Yes (RECENT DX) Hypertension Neurological: No ("brain is small for age") Genitourinary: No Gastrointestinal: Yes (S/P ADARSH & UMBILICAL HERNIA REPAIR 08/08/20) Abdominal Hernia, Gall Bladder Disease Musculoskeletal: Yes (bone spurs in back) Chronic Back Pain Endocrine: Yes (OBESITY; RECENT DX DM) Diabetes, Non-Insulin dep HEENT: Yes Hearing Impairment: Hard of Hearing, Bilateral Hearing Aide Cancer: No Psychosocial: Yes Depression Integumentary: No Blood Disorders: No Family Medical History Colon cancer No Pertinent Family Hx Physical Exam Vital Signs Vital Signs - First Documented 01/19/23 00:45 Temp 35.6 Pulse 82 Resp 20 B/P (MAP) 131/94 (106) Pulse Ox 98 O2 Delivery Room Air Capillary Refill : Height/Weight/BMI Height: '" Weight: lbs. oz. kg; 30.00 BMI Method: General Appearance: WD/WN, no apparent distress, obese HEENT: PERRL/EOMI Neck: full range of motion Respiratory: lungs clear, normal breath sounds, no respiratory distress, no accessory muscle use Cardiovascular: regular rate, rhythm Gastrointestinal: soft, tenderness (Mild tenderness to palpation in the left upper quadrant) Extremities: normal range of motion, normal inspection, no pedal edema Neurologic/Psychiatric: alert, normal mood/affect, oriented x 3 Skin: normal color, warm/dry Progress/Results/Core Measures Results/Orders Lab Results Laboratory Tests Test 01/19/23 00:50 01/19/23 01:15 Range/Units White Blood Count 11.7 H 4.3-11.0 10^3/uL Red Blood Count 4.26 L 4.30-5.52 10^6/uL Hemoglobin 15.8 13.3-17.7 g/dL Hematocrit 44 40-54 % Mean Corpuscular Volume 104 H 80-99 fL Mean Corpuscular Hemoglobin 37 H 25-34 pg Mean Corpuscular Hemoglobin Concent 36 32-36 g/dL Red Cell Distribution Width 14.5 10.0-14.5 % Platelet Count 108 L 130-400 10^3/uL Mean Platelet Volume 11.2 9.0-12.2 fL Immature Granulocyte % (Auto) 1 % Neutrophils (%) (Auto) 70 42-75 % Lymphocytes (%) (Auto) 23 12-44 % Monocytes (%) (Auto) 5 0-12 % Eosinophils (%) (Auto) 2 0-10 % Basophils (%) (Auto) 1 0-10 % Neutrophils # (Auto) 8.2 H 1.8-7.8 10^3/uL Lymphocytes # (Auto) 2.7 1.0-4.0 10^3/uL Monocytes # (Auto) 0.6 0.0-1.0 10^3/uL Eosinophils # (Auto) 0.2 0.0-0.3 10^3/uL Basophils # (Auto) 0.1 0.0-0.1 10^3/uL Immature Granulocyte # (Auto) 0.1 0.0-0.1 10^3/uL Prothrombin Time 14.8 H 12.2-14.7 SEC INR Comment 1.1 0.8-1.4 Activated Partial Thromboplast Time 32 24-35 SEC Sodium Level 136 135-145 MMOL/L Potassium Level 4.0 3.6-5.0 MMOL/L Chloride Level 105 98-107 MMOL/L Carbon Dioxide Level 21 21-32 MMOL/L Anion Gap 10 5-14 MMOL/L Blood Urea Nitrogen 7 7-18 MG/DL Creatinine 0.69 0.60-1.30 MG/DL Estimat Glomerular Filtration Rate 113 BUN/Creatinine Ratio 10 Glucose Level 140 H 70-105 MG/DL Calcium Level 9.1 8.5-10.1 MG/DL Corrected Calcium 8.7 8.5-10.1 MG/DL Total Bilirubin 2.9 H 0.1-1.0 MG/DL Aspartate Amino Transf (AST/SGOT) 37 H 5-34 U/L Alanine Aminotransferase (ALT/SGPT) 43 0-55 U/L Alkaline Phosphatase 87 40-136 U/L Total Protein 7.8 6.4-8.2 GM/DL Albumin 4.5 3.2-4.5 GM/DL Urine Color ARI H Urine Clarity CLEAR Urine pH 6.5 5-9 Urine Specific Cascade 1.015 L 1.016-1.022 Urine Protein 2+ H NEGATIVE Urine Glucose (UA) NEGATIVE NEGATIVE Urine Ketones NEGATIVE NEGATIVE Urine Nitrite NEGATIVE NEGATIVE Urine Bilirubin 1+ H NEGATIVE Urine Urobilinogen 2.0 < = 1.0 MG/DL Urine Leukocyte Esterase NEGATIVE NEGATIVE Urine RBC (Auto) NEGATIVE NEGATIVE Urine RBC NONE /HPF Urine WBC RARE /HPF Urine Crystals PRESENT H /LPF Urine Amorphous Sediment FEW DIXIE URATES H /LPF Urine Bacteria TRACE /HPF Urine Casts NONE /LPF Urine Mucus LARGE H /LPF Urine Culture Indicated NO My Orders Orders - JACKIE PARKS MD Cbc And Automated Diff (01/19/23 00:58) Comprehensive Metabolic Panel (01/19/23 00:58) Protime With Inr (01/19/23 00:58) Partial Thromboplastin Time (01/19/23 00:58) Ua Culture If Indicated (01/19/23 00:58) Ns Iv 1000 Ml (Ns Iv 1000 Ml) (01/19/23 01:14) Fentanyl Injection (Fentanyl Injection (01/19/23 01:15) Ondansetron Injection (Ondansetron Inj (01/19/23 01:15) Ct Abdomen/Pelvis W (01/19/23 01:42) Iohexol Injection (Omnipaque 350 Mg/Ml 1 (01/19/23 03:00) Received Contrast (Hold Metformin- Contr (01/19/23 03:00) Ns (Ivpb) 100 Ml (Sodium Chloride 0.9% 1 (01/19/23 03:00) Ketorolac Injection (Ketorolac Injection (01/19/23 04:00) Medications Given in ED Current Medications Medications Dose Ordered Sig/Radha Route Start Time Stop Time Status Last Admin Dose Admin Fentanyl Citrate 50 mcg ONCE ONCE IVP 01/19/23 01:15 01/19/23 01:16 DC 01/19/23 01:24 50 MCG Iohexol 100 ml ONCE ONCE IV 01/19/23 03:00 01/19/23 03:01 DC 01/19/23 02:53 80 ML Ondansetron HCl 4 mg ONCE ONCE IVP 01/19/23 01:15 01/19/23 01:16 DC 01/19/23 01:23 4 MG Sodium Chloride 100 ml ONCE ONCE IV 01/19/23 03:00 01/19/23 03:01 DC 01/19/23 02:53 80 ML Vital Signs/I&O 01/19/23 00:45 Temp 35.6 Pulse 82 Resp 20 B/P (MAP) 131/94 (106) Pulse Ox 98 O2 Delivery Room Air Progress Progress Note : Time: 04:04 Progress Note Patient seen and evaluated by me. Evaluation today includes CBC, Chem-12, lipase, urinalysis and CT of the abdomen and pelvis with IV contrast. Pertinent physical exam findings include well-developed well-nourished obese male in no acute distress. His abdomen is soft, tenderness to palpation in the left upper quadrant without involuntary rebound or guarding. Quiet, "normal bowel sounds. He has regular heart rhythm, clear lungs. Differential diagnosis includes splenic fracture, colitis, enteritis Labs independently reviewed and interpreted by me. His CBC shows a slightly e levated total white blood count of 11.7 with hemoglobin of 15, hematocrit of 44. His platelets are little bit low at 108. His Chem-12 shows normal electrolytes and renal function with a elevated bilirubin at 2.9. His AST is 37 ALT 43. Glucose slightly elevated at 140. Coags show a PT slightly elevated at 14.8 with an INR of 1.1 and PTT of 32. Urinalysis is noninfected with 1+ bilirubin. Patient is treated in the emergency department with a liter of normal saline and 50 mcg of fentanyl IV with 4 mg of Zofran. Patient CT scan of the abdomen and pelvis read by "stat rad" shows no evidence of splenic trauma or other acute finding. The patient states the fentanyl helped his pain go from a "8" to a "6". He was then provided with 15 mg of Toradol IV. He has been resting comfortably in the emergency department throughout his stay without any deterioration in his condition or increase in his pain. He has stable vitals no concerning findings for sepsis, he does have hyperbilirubinemia, review of the medical record shows that he had cholelithiasis at the time of his cholecystectomy. As he has no right upper quadrant pain or jaundice I am less concerned for any type of cholangitis. He has not had good follow-up over the last couple of years with his primary care physician, I do think it would be advisable and I have communicated this to him that he follow-up closely with his primary care physician. Return precautions provided in both verbal and written format. All questions are sought and answered. Patient is improved at discharge. Diagnostic Imaging Diagonstic Imaging: CT Comments CT abdomen and pelvis per stat read, no evidence of splenic trauma or other acute finding Departure Impression Primary Impression: Abdominal pain Qualified Codes: R10.12 - Left upper quadrant pain Disposition: 01 HOME, SELF-CARE Condition: Improved Departure-Patient Inst. Decision time for Depature: 04:09 Referrals: PAULA GOULD DO (PCP/Family) Primary Care Physician Patient Instructions: Abdominal Pain, Adult ED Add. Discharge Instructions: Monitor yourself for any worsening or changing symptoms. If you develop worsening pain especially with fever and vomiting please return to the emergency department for reevaluation. Your liver functions are slightly elevated today. These need to be followed closely by a primary care physician. You should call your primary care doctor for a follow-up appointment within the next week. Continue your daily medications as prescribed. You can take [id number] ibuprofen 2 to 3 pills which is 400 to 600 mg with food every 6-8 hours as needed for pain. If you find you are needing more pain management please return to the emergency room for reevaluation. Copy Copies To 1: PAULA GOULD KATHRYN M MD Jan 19, 2023 01:04
[2023-01-19 01:08] LABS: BASOPHILS # (AUTO) 0.1 10^3/uL (0.0-0.1); BASOPHILS % (AUTO) 1 % (0-10); EOSINOPHILS # (AUTO) 0.2 10^3/uL (0.0-0.3); EOSINOPHILS % (AUTO) 2 % (0-10); HEMATOCRIT 44 % (40-54); HEMOGLOBIN 15.8 g/dL (13.3-17.7); LYMPHOCYTES # (AUTO) 2.7 10^3/uL (1.0-4.0); LYMPHOCYTES % (AUTO) 23 % (12-44); MEAN CORPUSCULAR HEMOGLOBIN 37 pg (25-34); MEAN CORPUSCULAR HGB CONC 36 g/dL (32-36); MEAN CORPUSCULAR VOLUME 104 fL (80-99); MEAN PLATELET VOLUME 11.2 fL (9.0-12.2); MONOCYTES # (AUTO) 0.6 10^3/uL (0.0-1.0); MONOCYTES % (AUTO) 5 % (0-12); NEUTROPHILS # (AUTO) 8.2 10^3/uL (1.8-7.8); NEUTROPHILS % (AUTO) 70 % (42-75); PLATELET COUNT 108 10^3/uL (130-400); WHITE BLOOD COUNT 11.7 10^3/uL (4.3-11.0)
[2023-01-19] MEDS ORDERED: NS IV 1000 ML 1,000 ML IV STA (01:14)
[2023-01-19] MEDS ORDERED: ONDANSETRON INJECTION 4 MG/2 ML (SDV) IVP ONE (01:15)
[2023-01-19] MEDS ORDERED: fentaNYL INJECTION 100 MCG/2 ML VIAL IVP ONE (01:15)
[2023-01-19 01:19] LABS: ALBUMIN 4.5 GM/DL (3.2-4.5)
[2023-01-19 01:20] LABS: INR 1.1 (0.8-1.4); PROTHROMBIN TIME PATIENT 14.8 SEC (12.2-14.7)
[2023-01-19 01:21] LABS: CALCIUM 9.1 MG/DL (8.5-10.1)
[2023-01-19 01:22] LABS: TOTAL PROTEIN 7.8 GM/DL (6.4-8.2)
[2023-01-19 01:24] LABS: BILIRUBIN,TOTAL 2.9 MG/DL (0.1-1.0)
[2023-01-19 01:25] LABS: CREATININE SERUM 0.69 MG/DL (0.60-1.30)
[2023-01-19 01:59] LABS: COLOR,URINE AMBER
[2023-01-19 02:00] LABS: AMORPHOUS SEDIMENT,UR FEW AMOR URATES /LPF; BACTERIA,URINE TRACE /HPF; BILIRUBIN,URINE 1+ (NEGATIVE); CLARITY,URINE CLEAR; GLUCOSE, URINE (UA) NEGATIVE (NEGATIVE); KETONES,URINE NEGATIVE (NEGATIVE); LEUKOCYTE ESTERASE ,URINE NEGATIVE (NEGATIVE); NITRITE,URINE NEGATIVE (NEGATIVE); PH,URINE 6.5 (5-9); PROTEIN,URINE 2+ (NEGATIVE); WBC,URINE RARE /HPF
[2023-01-19] MEDS ORDERED: NS 100 ML (IVPB) BAG IV ONE (03:00)
[2023-01-19] MEDS ORDERED: IOHEXOL 350 MG/ML 100 ML (OMNIPAQUE 350) VIAL IV ONE (03:00)
[2023-01-19] MEDS ORDERED: HOLD METFORMIN - RECEIVED CONTRAST 20 ML VIAL IV SCH (03:00)
[2023-01-19] MEDS ORDERED: KETOROLAC INJ 15 MG/ML VIAL IVP ONE (04:00)
--- NOTE | 2023-01-19 06:04 | Diagnostic Imaging Report ---
PROCEDURE: CT abdomen and pelvis with contrast. TECHNIQUE: Multiple contiguous axial images were obtained through the abdomen and pelvis after administration of intravenous contrast. Auto Exposure Controls were utilized during the CT exam to meet ALARA standards for radiation dose reduction. All CT scans use one or more of the following dose optimizing techniques: automated exposure control, MA and/or KvP adjustment based on patient size and exam type or iterative reconstruction. INDICATION: 52-year-old male, fall, severe left upper quadrant pain. History of enlarged spleen. CORRELATION STUDY: CT 04/03/2021 FINDINGS: LOWER THORAX: Clear. Heart size borderline enlarged. Small esophageal hernia. LIVER: Approximately 1.8 cm low attenuating lesion subcapsular region anterior right hepatic lobe, unchanged. Additional lesion inferiorly, approximately 1.7 cm also stable. GALLBLADDER: Cholecystectomy. No overt bile duct dilatation. SPLEEN: Enlarged at nearly 21 cm craniocaudal length (previously 21.4 cm). Uniform attenuation. No focal lesion or perisplenic fluid. PANCREAS: Unremarkable. ADRENAL GLANDS: Unremarkable. KIDNEYS: Small nonobstructing right renal stone. Probable right renal cyst. No hydronephrosis or obstruction. ABDOMINAL AORTA: Unremarkable, nonaneurysmal. A few small aortocaval and mesenteric lymph nodes. GASTROINTESTINAL TRACT: Colonic diverticulosis without diverticulitis. Mild stool retention in the colon. No obstruction or inflammation. No abdominal ascites and/or free air. Normal appendix. URINARY BLADDER: Unremarkable. REPRODUCTIVE: Unremarkable. OSSEOUS STRUCTURES: No acute abnormality. IMPRESSION: 1. Generally stable splenomegaly without evidence for acute traumatic abnormality of the spleen. 2. Colonic diverticulosis without diverticulitis. 3. Hepatic lesions overall appear unchanged, favor benign process. Dictated by: Dictated on workstation # [id number]
== END 2023-01-19 04:39 | disposition home or self-care (01) ==
LOC: EDUNIT# 00:29 → ER 00:38
DX: R10.12 Left upper quadrant pain (principal); R11.10 Vomiting, unspecified; E80.7 Disorder of bilirubin metabolism, unspecified; E66.9 Obesity, unspecified; Z90.49 Acquired absence of other specified parts of digestive tract; Z68.30 Body mass index [BMI] 30.0-30.9, adult
CPT/HCPCS: 36415; 74177; 80053; 81000; 85025; 85610; 85730; 96374; 96375